=== PATIENT | female | born 1930 | race Caucasian/White ===

== ENCOUNTER 2017-07-17 05:22 | Inpatient (IN) ==
[2017-07-17] MEDS ORDERED: 0.9 % SODIUM CHLORIDE 2,000 ML IV ONE (06:07)
[2017-07-17] MEDS ORDERED: ONDANSETRON 4 MG/2 ML VIAL IV ONE (06:10)
--- NOTE | 2017-07-17 06:13 | Emergency Department Note ---
Nausea/Vomiting/Diarrhea HPI - General Chief complaint: Nausea/Vomiting/Diarrhea Stated complaint: N/V/D Time Seen by Provider: 07/17/17 06:00 Source: patient, EMS Mode of arrival: wheelchair Limitations: altered mental status - History of Present Illness HPI Narrative: 87-year-old female comes in via EMS for nausea vomiting diarrhea. She is not able to give me much in the way of meaningful history or review of systems as she is quite confused and has a history of dementia. Nursing staff reports that she was covered in stool from her breasts down to her feet and she did not even know she had another bowel movement as they were cleaning her up. She has the same questions multiple times and expresses that she does not know why she is here. She is complaining of right hip pain but it is unclear if that is new from a fall or if there is is a more chronic history. Her blood pressure was low so IV fluids were started. - Related Data Home Medications Medication Instructions Recorded Confirmed aspirin 81 mg tablet,delayed 81 mg PO QDAY tab 01/10/15 06/13/17 release Previous Rx's Medication Instructions Recorded True Metrex test strips #100 06/18/16 furosemide 20 mg tablet 20 mg PO QDAY PRN #30 tab 09/18/16 lisinopril 10 mg tablet 5 mg PO QDAY 30 Days #15 tab 09/18/16 ascorbate calcium 500 mg tablet 500 mg PO QDAY #30 tab 03/18/17 cyanocobalamin (vitamin B-12) 2,500 mcg PO QHS #30 tab 03/18/17 2,500 mcg tablet ondansetron 8 mg disintegrating 8 mg PO Q8H PRN #10 tab 06/17/17 tablet doxycycline hyclate 100 mg tablet 100 mg PO BID #14 tab 06/27/17 Verapamil HCl [Verapamil ER] 120 mg PO DAILY #30 cap24h.pel 06/29/17 hydrocodone 10 mg-acetaminophen 1 tab PO Q6H PRN #120 tab 07/05/17 325 mg tablet Allergies Allergy/AdvReac Type Severity Reaction Status Date / Time No Known Drug Allergies Allergy Verified 06/29/17 16:10 Review of Systems Limitations: ROS unobtainable due to patients medical condition Past Medical History - Past Medical History Source: old records reviewed Medical history: Reports: dementia, DM (With neuropathy), hypertension, osteoporosis (With compression fracture), other (Hereditary hemochromatosis) Surgical history ED: Reports: tonsillectomy, other (Right great toe amputation) - Social History smoking status: Former smoker Physical Exam Thin female no acute distress resting. Ill-appearing. Hair is thinning and falling out. Normocephalic atraumatic. Conjunctive are clear sclerae nonicteric. No nasal discharge or congestion. Oropharynx is pink and moist. Heart is regular rate and rhythm no murmur appreciated. Lungs are clear to auscultation bilaterally without wheezes rales rhonchi or respiratory distress. Abdomen is grossly diffusely tender all over. Bilateral lower extremities with +2 pitting edema to the calf. Left worse than right with some mild erythema with that. She is alert but not well oriented except to person and place. She is following commands however Limitations: no limitations Course Vital Signs Temperature 98.6 F 07/17/17 05:23 Temperature 98.6 F 07/17/17 05:23 Disposition Pt seen by SIDEHAND/PA only: No Summary: Workup started with x-rays and laboratory; C. difficile ordered. Treatment started with IV fluids and Zofran. Will be handed off to Dr. Bardales at shift change-6:30 AM today. Disposition: Still a Patient Condition: Fair Referrals: Leonor Bond, KIMBERLY, STRUCTURAL WELDER [Primary Care Provider] -
[2017-07-17 06:51] LABS: Basophils # (Auto) 0 K/mcL (0.0-0.3); Basophils % (Auto) 0 % (0.0-2.0); Eosinophils # (Auto) 0 K/mcL (0.0-0.7); Eosinophils % (Auto) 0 % (0.0-7.0); Granulocytes % (Auto) 91.3 % (38.0-78.0); Lymphocytes # (Auto) 0.3 K/mcL (1.5-4.8); Lymphocytes % (Auto) 1.6 % (15.5-49.0); Mean Cell Volume 96.9 fL (80.0-100.0); Mean Corpuscular HGB Conc 33.9 g/dL (31.0-36.0); Mean Corpuscular Hemoglobin 32.8 pg (26.0-34.0); Monocytes # (Auto) 1.4 K/mcL (0.1-0.9); Monocytes % (Auto) 7.1 % (1.0-12.0); Platelet Count 279 K/mcL (140-440); RBC 3.64 M/mcL (4.00-5.20); Red Cell Distribution Width 13.1 % (11.5-14.5)
--- NOTE | 2017-07-17 07:04 | XRay Report ---
CLINICAL INFORMATION: Right hip pain TECHNIQUE: AP pelvis. AP and lateral right hip COMPARISON: 09/14/2013 FINDINGS: Previous right total hip arthroplasty. No fracture. No interval change. Pelvis is negative. No fracture. No lytic lesion. No detectable sacral fracture. Left hip is negative IMPRESSION: 1. Previous right total hip arthroplasty 2. No acute fracture. Interpreted and Authenticated by: Tha Fernandez 07/17/17
--- NOTE | 2017-07-17 07:05 | XRay Report ---
CLINICAL INFORMATION: Nausea. Vomiting and diarrhea. TECHNIQUE: AP supine and left lateral decubitus abdomen COMPARISON: None FINDINGS: Gas within the colon. No dilated gas-filled small bowel. No mechanical small bowel obstruction. No significant colonic dilatation. Bowel gas pattern is unremarkable. No pneumoperitoneum. No biliary or portal venous gas. No pneumatosis. No focal abnormality. IMPRESSION: Negative abdomen Interpreted and Authenticated by: Tha Fernandez 07/17/17
[2017-07-17 07:16] LABS: ALT/SGPT 11 U/l (0-40); Albumin 3.3 gm/dL (3.2-5.2); Albumin/Globulin Ratio 1.1 (1.0-2.3); Alkaline Phosphatase 212 U/L (39-117); Blood Urea Nitrogen 39 mg/dl (8-23); Lipase 20 U/L (7-60)
[2017-07-17 07:51] LABS: Appearance,Urine CLEAR; Bilirubin,Urine NEG (NEG); Color,Urine AMBER; Glucose,Urine (UA) NEGATIVE (NEG); Leukocyte Esterase,Urine NEG /uL (NEG); Protein,Urine NEG (NEG); Specific Gravity,Urine 1.017 (1.000-1.035); Urine Blood NEG mg/dL (<0.03)
[2017-07-17] MEDS ORDERED: AZITHROMYCIN 500 MG in DEXTROSE 5% IN WATER 250 ML IV ONE (11:18)
--- NOTE | 2017-07-17 11:22 | Emergency Department Note ---
Nausea/Vomiting/Diarrhea HPI - General Chief complaint: Nausea/Vomiting/Diarrhea Stated complaint: N/V/D Time Seen by Provider: 07/17/17 06:00 Source: patient, EMS Mode of arrival: wheelchair Limitations: no limitations - Related Data Home Medications Medication Instructions Recorded Confirmed aspirin 81 mg tablet,delayed 81 mg PO QDAY tab 01/10/15 07/17/17 release Previous Rx's Medication Instructions Recorded True Metrex test strips #100 06/18/16 furosemide 20 mg tablet 20 mg PO QDAY PRN #30 tab 09/18/16 lisinopril 10 mg tablet 5 mg PO QDAY 30 Days #15 tab 09/18/16 ascorbate calcium 500 mg tablet 500 mg PO QDAY #30 tab 03/18/17 cyanocobalamin (vitamin B-12) 2,500 mcg PO QHS #30 tab 03/18/17 2,500 mcg tablet Verapamil HCl [Verapamil ER] 120 mg PO DAILY #30 cap24h.pel 06/29/17 hydrocodone 10 mg-acetaminophen 1 tab PO Q6H PRN #120 tab 07/05/17 325 mg tablet Allergies Allergy/AdvReac Type Severity Reaction Status Date / Time Sulfa (Sulfonamide Allergy Unknown Rash Verified 07/17/17 08:21 Antibiotics) Past Medical History - Past Medical History Medical history: Reports: dementia, DM (With neuropathy), hypertension, osteoporosis (With compression fracture), other (Hereditary hemochromatosis) Surgical history ED: Reports: tonsillectomy, other (Right great toe amputation) - Social History smoking status: Former smoker Physical Exam Limitations: no limitations Course Vital Signs Temperature 98.6 F 07/17/17 05:23 Temperature 98.6 F 07/17/17 14:01 Pulse Rate 80 07/17/17 13:16 Respiratory Rate 14 07/17/17 14:01 Blood Pressure 105/55 07/17/17 14:01 Pulse Oximetry (%) 100 07/17/17 14:01 Nausea/Vomiting/Diarrhea - [facility] Narrative Medical decision making narrative: Her stool sample came back as negative for C. difficile. Pressure has come up from the 96 systolic to 110 systolically. IV fluids. BC was elevated at 19, 600 differential is pending. lactic Acid was 3.3 . Sodium is 127 2 view chest x-ray shows possible left infiltrate and cultures blood cultures have been drawn - Lab Data Result diagrams: 07/17/17 06:15 07/17/17 06:15 Lab Results 07/17/17 07/17/17 07/17/17 Range/Units 06:15 06:15 06:15 WBC 19.6 H (4.5-11.0) K/mcL RBC 3.64 L (4.00-5.20) M/mcL Hgb 12.0 (12.0-15.0) g/dL Hct 35.3 L (36.0-48.0) % MCV 96.9 (80.0-100.0) fL MCH 32.8 (26.0-34.0) pg MCHC 33.9 (31.0-36.0) g/dL RDW 13.1 (11.5-14.5) % Plt Count 279 (140-440) K/mcL MPV 8.0 (7.4-10.4) fL Gran % 91.3 H (38.0-78.0) % Lymph % (Auto) 1.6 L (15.5-49.0) % [place] % (Auto) 7.1 (1.0-12.0) % Eos % (Auto) 0 (0.0-7.0) % Baso % (Auto) 0 (0.0-2.0) % Gran # 17.9 H (1.8-8.0) K/mcL Lymph # (Auto) 0.3 L (1.5-4.8) K/mcL [place] # (Auto) 1.4 H (0.1-0.9) K/mcL Eos # (Auto) 0 (0.0-0.7) K/mcL Baso # (Auto) 0 (0.0-0.3) K/mcL Total Counted 100 Seg Neutrophils % 61 (38-78) % Band Neutrophils % 34 H (0-10) % Monocytes % (Manual) 5 (1-12) % Differential Comment (()) Platelet Estimate Normal (NORMAL) RBC Morphology Normal (NORMAL) ESR (0-20) mm/hr VBG Lactic Acid (0.5-2.2) mmol/L Sodium 127 L (133-145) mmol/L Potassium 5.0 (3.3-5.1) mmol/L Chloride 90 L (96-108) mmol/L Carbon Dioxide 20 L (22-30) mmol/L Anion Gap 17.0 H (8-16) BUN 39 H (8-23) mg/dl Creatinine 1.1 (0.6-1.1) mg/dl GFR Calculation 45 Glucose 205 H (70-105) mg/dL Calcium 8.7 (8.6-10.4) mg/dl Total Bilirubin 1.1 H (0.0-1.0) mg/dL AST 19 (0-37) U/l ALT 11 (0-40) U/l Alkaline Phosphatase 212 H (39-117) U/L C-Reactive Protein (0.0-0.8) mg/dl Total Protein 6.4 (5.9-8.4) gm/dL Albumin 3.3 (3.2-5.2) gm/dL Globulin 3.1 (2.2-3.7) gm/dL Albumin/Globulin Ratio 1.1 (1.0-2.3) Lipase 20 (7-60) U/L Urine Color Urine Appearance Urine pH (5.0-9.0) Ur Specific [place] (1.000-1.035) Urine Protein (NEG) mg/dL Urine Glucose (UA) (NEG) mg/dL Urine Ketones (NEG) mg/dL Urine Occult Blood (<0.03) mg/dL Urine Nitrate (NEG) Urine Bilirubin (NEG) mg/dL Urine Urobilinogen (NEG) mg/dL Ur Leukocyte Esterase (NEG) /uL Ur Culture Indicated? Mycoplasma pneumon IgM (NEGATIVE) Ur Strep pneumoniae Ag (NEGATIVE) 07/17/17 07/17/17 07/17/17 Range/Units 06:15 06:15 06:15 WBC (4.5-11.0) K/mcL RBC (4.00-5.20) M/mcL Hgb (12.0-15.0) g/dL Hct (36.0-48.0) % MCV (80.0-100.0) fL MCH (26.0-34.0) pg MCHC (31.0-36.0) g/dL RDW (11.5-14.5) % Plt Count (140-440) K/mcL MPV (7.4-10.4) fL Gran % (38.0-78.0) % Lymph % (Auto) (15.5-49.0) % [place] % (Auto) (1.0-12.0) % Eos % (Auto) (0.0-7.0) % Baso % (Auto) (0.0-2.0) % Gran # (1.8-8.0) K/mcL Lymph # (Auto) (1.5-4.8) K/mcL [place] # (Auto) (0.1-0.9) K/mcL Eos # (Auto) (0.0-0.7) K/mcL Baso # (Auto) (0.0-0.3) K/mcL Total Counted Seg Neutrophils % (38-78) % Band Neutrophils % (0-10) % Monocytes % (Manual) (1-12) % Differential Comment (()) Platelet Estimate (NORMAL) RBC Morphology (NORMAL) ESR 25 H (0-20) mm/hr VBG Lactic Acid (0.5-2.2) mmol/L Sodium (133-145) mmol/L Potassium (3.3-5.1) mmol/L Chloride (96-108) mmol/L Carbon Dioxide (22-30) mmol/L Anion Gap (8-16) BUN (8-23) mg/dl Creatinine (0.6-1.1) mg/dl GFR Calculation Glucose (70-105) mg/dL Calcium (8.6-10.4) mg/dl Total Bilirubin (0.0-1.0) mg/dL AST (0-37) U/l ALT (0-40) U/l Alkaline Phosphatase (39-117) U/L C-Reactive Protein 8.6 H (0.0-0.8) mg/dl Total Protein (5.9-8.4) gm/dL Albumin (3.2-5.2) gm/dL Globulin (2.2-3.7) gm/dL Albumin/Globulin Ratio (1.0-2.3) Lipase (7-60) U/L Urine Color Urine Appearance Urine pH (5.0-9.0) Ur Specific [place] (1.000-1.035) Urine Protein (NEG) mg/dL Urine Glucose (UA) (NEG) mg/dL Urine Ketones (NEG) mg/dL Urine Occult Blood (<0.03) mg/dL Urine Nitrate (NEG) Urine Bilirubin (NEG) mg/dL Urine Urobilinogen (NEG) mg/dL Ur Leukocyte Esterase (NEG) /uL Ur Culture Indicated? Mycoplasma pneumon IgM Negative (NEGATIVE) Ur Strep pneumoniae Ag (NEGATIVE) 07/17/17 07/17/17 07/17/17 Range/Units 07:10 07:10 07:50 WBC (4.5-11.0) K/mcL RBC (4.00-5.20) M/mcL Hgb (12.0-15.0) g/dL Hct (36.0-48.0) % MCV (80.0-100.0) fL MCH (26.0-34.0) pg MCHC (31.0-36.0) g/dL RDW (11.5-14.5) % Plt Count (140-440) K/mcL MPV (7.4-10.4) fL Gran % (38.0-78.0) % Lymph % (Auto) (15.5-49.0) % [place] % (Auto) (1.0-12.0) % Eos % (Auto) (0.0-7.0) % Baso % (Auto) (0.0-2.0) % Gran # (1.8-8.0) K/mcL Lymph # (Auto) (1.5-4.8) K/mcL [place] # (Auto) (0.1-0.9) K/mcL Eos # (Auto) (0.0-0.7) K/mcL Baso # (Auto) (0.0-0.3) K/mcL Total Counted Seg Neutrophils % (38-78) % Band Neutrophils % (0-10) % Monocytes % (Manual) (1-12) % Differential Comment (()) Platelet Estimate (NORMAL) RBC Morphology (NORMAL) ESR (0-20) mm/hr VBG Lactic Acid 3.3 H (0.5-2.2) mmol/L Sodium (133-145) mmol/L Potassium (3.3-5.1) mmol/L Chloride (96-108) mmol/L Carbon Dioxide (22-30) mmol/L Anion Gap (8-16) BUN (8-23) mg/dl Creatinine (0.6-1.1) mg/dl GFR Calculation Glucose (70-105) mg/dL Calcium (8.6-10.4) mg/dl Total Bilirubin (0.0-1.0) mg/dL AST (0-37) U/l ALT (0-40) U/l Alkaline Phosphatase (39-117) U/L C-Reactive Protein (0.0-0.8) mg/dl Total Protein (5.9-8.4) gm/dL Albumin (3.2-5.2) gm/dL Globulin (2.2-3.7) gm/dL Albumin/Globulin Ratio (1.0-2.3) Lipase (7-60) U/L Urine Color [place] Urine Appearance Clear Urine pH 5.0 (5.0-9.0) Ur Specific [place] 1.017 (1.000-1.035) Urine Protein Neg (NEG) mg/dL Urine Glucose (UA) Negative (NEG) mg/dL Urine Ketones Neg (NEG) mg/dL Urine Occult Blood Neg (<0.03) mg/dL Urine Nitrate Neg (NEG) Urine Bilirubin Neg (NEG) mg/dL Urine Urobilinogen 4.0 A (NEG) mg/dL Ur Leukocyte Esterase Neg (NEG) /uL Ur Culture Indicated? No Mycoplasma pneumon IgM (NEGATIVE) Ur Strep pneumoniae Ag Positive A (NEGATIVE) Disposition Pt seen by RAILWAY TRACTION LINE WORKER/PA only: No Clinical Impression: Pneumonia Disposition: Xfer As Inpt ([facility]) Condition: Fair
[2017-07-17 11:29] LABS: Band Neutrophils % 34 % (0-10); Monocytes % (Manual) 5 % (1-12); Platelet Estimate NORMAL (NORMAL); RBC Morphology NORMAL (NORMAL); Segmented Neutrophils % 61 % (38-78)
--- NOTE | 2017-07-17 11:44 | XRay Report ---
INDICATION: Nausea and vomiting. TECHNIQUE: AP chest x-ray,portable semiupright COMPARISON: Chest x-rays dated 06/29/2017 and 09/14/2013 FINDINGS:Subtle left basilar infiltrate suggestive of pneumonia. Follow-up PA and lateral chest x-ray is recommended. Right lung remains negative. Heart size and pulmonary vascularity are normal. [place] and mediastinum are negative for no pleural fluid. IMPRESSION: 1. Subtle left basilar infiltrate consistent with pneumonia 2. Follow-up radiograph recommended. Interpreted and Authenticated by: Tha Fernandez 07/17/17
--- NOTE | 2017-07-17 13:04 | Cat Scan Report ---
CLINICAL INFORMATION: Nausea and vomiting. Diarrhea COMPARISON: Plain film abdomen 07/17/2017. Abdominal ultrasound 08/05/2014 TECHNIQUE: Axial images were obtained through the abdomen and pelvis. Sagittally and coronally reformatted images. FINDINGS: Somewhat suboptimal abdominal pelvic CT scan. Patient did not receive intravenous or oral contrast material and contrast is limited. There is very little intra-abdominal fat. There is extensive streak artifact related to right hip arthroplasty causing image degradation throughout the pelvis. There is some mild patient motion. Lung bases are negative. No parenchymal infiltrate or mass. There is minimal left pleural fluid. No significant pericardial fluid. Liver is negative to limits of noncontrast enhanced examination. The gallbladder is mildly distended. There are small calcified stones in the dependent portion of the gallbladder. No pericholecystic fluid. Common bile duct is not optimally demonstrated but there is no definite biliary duct dilatation. No splenomegaly. Pancreas appears negative. No pancreatic mass or peripancreatic abnormality. Negative adrenal glands. Kidneys are negative to limits of noncontrast enhanced examination. No hydronephrosis. No definite mass. No calculi. The pelvis is not well-visualized due to extensive streak artifact from right hip arthroplasty. There is a fluid containing structure which is probably a mildly distended bladder. The bladder extends posterolaterally toward the right. No definite uterus is identified. There is no adnexal mass. There is minimal free fluid within the pelvic cul-de-sac. No intra-abdominal abscess. No pneumoperitoneum. No biliary or portal venous gas. No colonic mass. There is sigmoid diverticulosis. No definite diverticulitis. No mechanical small bowel obstruction. There is calcification of the abdominal aorta. There is a compression deformity of the L2 vertebral body. Sacrum is negative. No insufficiency fracture. No pelvic fracture. IMPRESSION: 1. Limited evaluation. Patient did not receive intravenous or oral contrast material 2. Mildly distended gallbladder. Cholelithiasis. 3. Prominent urinary bladder. This is not optimally visualized. No detectable pelvic mass 4. No evidence for diverticulitis. No intra-abdominal abscess. No pneumoperitoneum. The exam was performed using radiation dose optimization techniques including, but not limited to, automated exposure control, adjustment of the mA and/or kV according to patient size and use of iterative reconstruction technique. Interpreted and Authenticated by: Tha Fernandez 07/17/17
[2017-07-17] MEDS ORDERED: ACETAMINOPHEN 1,000 MG/100 ML BOTTLE IV PRN (14:01)
[2017-07-17] MEDS ORDERED: ACETAMINOPHEN 325 MG TABLET PO PRN (14:01)
[2017-07-17] MEDS ORDERED: ONDANSETRON 4 MG/2 ML VIAL IV PRN (14:01)
[2017-07-17] MEDS ORDERED: 0.9 % SODIUM CHLORIDE 1,000 ML IV SCH (14:01)
[2017-07-17] MEDS ORDERED: MAGNESIUM SULFATE 2 GM/50 ML BAG IV PRN (14:01)
[2017-07-17] MEDS: cefTRIAXone 2 GM in DEXTROSE 5% IN WATER 50 ML IV SCH (14:01)
[2017-07-17] MEDS ORDERED: NOREPINEPHRINE BITARTRATE 16 MG in 0.9 % SODIUM CHLORIDE 234 ML IV PRN (14:01)
[2017-07-17] MEDS ORDERED: POTASSIUM CHLORIDE 20 MEQ PACKET PO PRN (14:01)
[2017-07-17] MEDS: LACTATED RINGERS 1,000 ML IV SCH (14:01)
[2017-07-17 14:29] LABS: C-Reactive Protein 8.6 mg/dl (0.0-0.8)
--- NOTE | 2017-07-17 15:10 | History and Physical Report ---
DATE OF ADMISSION: 07/17/2017 REASON FOR ADMISSION: Weakness, diarrhea, fever, shortness of breath, and confusion. HISTORY OF CHIEF COMPLAINT: The patient is an 87-year-old with history of dementia who lives with her daughter and granddaughter, and has been in her baseline state of health until over the last 4-1/2 weeks. The patient has experienced progressive nausea after she had an episode of lower extremity infection and was started on antibiotics. The nausea initially was attributed to antibiotics which were subsequently discontinued, but her symptoms persisted over the last few days. The symptoms have progressed with increasing diarrhea and inability to take anything by mouth, along with progressive weakness and shortness of breath. For the last 24 hours the patient has been increasingly confused, not able to take anything by mouth and with persistent nausea and recurrent diarrhea. She was discovered in a nearly unresponsive state and subsequently brought into [facility] ER where initial workup revealed over 19,000 white count with a creatinine of 1.1 and elevated BUN along with elevated lactate and chest infiltrates on imaging. Subsequently, Hospitalist Service was consulted. At the time of evaluation, patient is more awake and able to answer some of the questions. She appears quite ill. She is fairly confused. Per history from the nursing staff, the patient was smeared in stool on most of the abdomen and all the way to the feet. The patient also endorses to significant joint pain. She has remarkable bruising on the lower extremities along with minimal lymphedema. REVIEW OF SYSTEMS: Ten-point review of system was performed, negative except the ones discussed above. PAST MEDICAL HISTORY: 1. History of dementia. 2. Hypertension. 3. Anxiety disorder. 4. Irregular heart rate. 5. History of parkinsonian features. 6. Diabetes mellitus type 2. 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 FAMILY HISTORY: Significant for type 2 diabetes in paternal grandfather and father. SOCIAL HISTORY: The patient lives with her family, including daughter and granddaughter. She is , retired. No history of alcoholism. She quit smoking a long time ago. CURRENT MEDICATIONS: 1. Lisinopril 5 mg daily. 2. Hydrocodone/acetaminophen 10/325 mg q.6h. p.r.n. 3. Furosemide 20 mg daily. 4. Aspirin 81 mg. PHYSICAL EXAMINATION: GENERAL: The patient is pleasantly confused but answering some of the questions. BMI 25, height 5 feet 11 inches. VITAL SIGNS: Blood pressure 102, improved from 70/45 at the ER, respiration rate 14, temperature 98.6, pulse 99, sats 90% on room air. HEENT: Pupils symmetric. Oral cavity is dry. No ear or nose discharge. No subconjunctival hemorrhage or scleral icterus. NECK: No lymphadenopathy. HEART: S1 and S2. Irregular rhythm. ESM grade 1. CHEST: Diminished breath sounds at bases. No expiratory rhonchi or adventitious sounds. ABDOMEN: Minimally tender around the right lower quadrant but no rebound, no guarding, no fluid. LOWER EXTREMITIES: Significant for multiple areas of ecchymosis. Pedal edema noted, right great toe post-amputation stump. SKIN: Otherwise, no suspicious lesions other than ecchymosis described. PSYCH: No anxiety, but pleasantly confused, lethargic. NEURO: Nonfocal, moving all four extremities. Higher functions could not be performed. LABS AND IMAGING: White count 19.6, hemoglobin 12, platelets 279, neutrophils 61%, bands 34%. Lactic acid 3.3, sodium 127, potassium 5, creatinine 1.1, BUN 39. CRP 8.6. UA unremarkable, serology negative. X-ray hip: No acute fracture. X-ray abdomen: Negative. CT abdomen: Distended gallbladder with cholelithiasis. X-ray chest: Left basilar infiltrate consistent with pneumonia. ASSESSMENT AND PLAN: An 87-year-old admitted with severe sepsis with pneumonia and diarrhea. 1. Severe sepsis by criteria secondary to pneumonia. Continue antibiotic coverage. Continue management per guidelines. Monitor for end organ dysfunction, trend lactate, initiate Rocephin and azithromycin for community-acquired pathogens. 2. Community-acquired pneumonia, bibasilar. Start antibiotic coverage along with pulmonary toilet. 3. Mild acute kidney injury secondary to volume depletion. Continue crystalloids. 4. Diarrhea, clostridium difficile negative. Await stool studies including stool cultures along with stool leukocytes; acute in nature, likely infectious. 6. Other prior medical issues, including: a. History of diabetes mellitus type 2. Continue sliding scale insulin. b. Hypertension. Hold antihypertensives in light of acute renal failure and volume depletion. CODE STATUS: FULL CODE. PLAN FOR TODAY: 1. Admit as inpatient. 2. Sepsis management per guidelines. 3. Crystalloids and vasopressors if indicated. 4. Admit to ICU. 5. Monitor renal function. 6. Stool studies. 7. Community-acquired pneumonia protocol. Time spent on history and physical over 65 minutes. The patient will be transferred to ICU. AA:melva Job ID: [id number] Doc ID: [id number] Axel Flores MD
[2017-07-17] MEDS: 0.9 % SODIUM CHLORIDE 10 ML SYRINGE IV SCH ×2 (16:11→21:56)
[2017-07-17] MEDS ORDERED: DEXTROSE 50% 50 ML VIAL IV PRN (17:30)
[2017-07-17] MEDS ORDERED: DEXTROSE 31 GM ORAL.SUSP PO PRN (17:30)
[2017-07-17] MEDS: HEPARIN 5,000 UNIT/ML VIAL SQ SCH (21:27)
[2017-07-17] MEDS: INSULIN LISPRO 1 UNIT/0.01 ML UNIT SQ SCH (21:27)
[2017-07-18] MEDS: LACTATED RINGERS 1,000 ML IV SCH ×4 (02:18→15:08)
[2017-07-18 04:53] LABS: Mean Cell Volume 97.3 fL (80.0-100.0); Mean Corpuscular HGB Conc 33.8 g/dL (31.0-36.0); Mean Corpuscular Hemoglobin 32.9 pg (26.0-34.0); Platelet Count 198 K/mcL (140-440); RBC 2.95 M/mcL (4.00-5.20); Red Cell Distribution Width 13.4 % (11.5-14.5)
[2017-07-18 05:08] LABS: ALT/SGPT 8 U/l (0-40); Albumin/Globulin Ratio 1.3 (1.0-2.3); Alkaline Phosphatase 147 U/L (39-117); Bilirubin,Direct < 0.2 mg/dL (0.0-0.3); Blood Urea Nitrogen 23 mg/dl (8-23); Gamma Glutamyl Transpeptidase 8 U/L (5-36); Uric Acid 4.7 mg/dL (2.5-8.0)
[2017-07-18] MEDS: 0.9 % SODIUM CHLORIDE 10 ML SYRINGE IV SCH ×3 (05:28→22:31)
[2017-07-18 07:56] LABS: Band Neutrophils % 9 % (0-10); Eosinophils % (Manual) 1 % (0-7); Lymphocytes % 7 % (15-49); Monocytes % (Manual) 13 % (1-12); Platelet Estimate NORMAL (NORMAL); RBC Morphology NORMAL (NORMAL); Segmented Neutrophils % 70 % (38-78)
[2017-07-18] MEDS: INSULIN LISPRO 1 UNIT/0.01 ML UNIT SQ SCH ×4 (08:06→22:31)
[2017-07-18] MEDS ORDERED: AZITHROMYCIN 500 MG in DEXTROSE 5% IN WATER 250 ML IV SCH (09:00)
[2017-07-18] MEDS: HEPARIN 5,000 UNIT/ML VIAL SQ SCH ×2 (09:25→23:48)
[2017-07-18] MEDS: cefTRIAXone 2 GM in DEXTROSE 5% IN WATER 50 ML IV SCH (09:25)
--- NOTE | 2017-07-18 10:05 | Internal Med Progress Note ---
Medical - PN: Subj Patient information: Note initiated : 07/18/17 at 10:01 am Service Date, if different from initiated Date: [] Patient: Nayely Zhao 87 y/o F admitted on 07/17/17 for N/V/D. Chief Complaint: [] Interval history: The patient is an 87-year-old with history of dementia who lives with her daughter and granddaughter, and has been in her baseline state of health until over the last 4-1/2 weeks. The patient has experienced progressive nausea after she had an episode of lower extremity infection and was started on antibiotics. The nausea initially was attributed to antibiotics which were subsequently discontinued, but her symptoms persisted over the last few days. The symptoms have progressed with increasing diarrhea and inability to take anything by mouth, along with progressive weakness and shortness of breath. For the last 24 hours the patient has been increasingly confused, not able to take anything by mouth and with persistent nausea and recurrent diarrhea. She was discovered in a nearly unresponsive state and subsequently brought into [facility] ER where initial workup revealed over 19,000 white count with a creatinine of 1.1 and elevated BUN along with elevated lactate and chest infiltrates on imaging. Subsequently, Hospitalist Service was consulted. At the time of evaluation, patient is more awake and able to answer some of the questions. She appears quite ill. She is fairly confused. Per history from the nursing staff, the patient was smeared in stool on most of the abdomen and all the way to the feet. The patient also endorses to significant joint pain. She has remarkable bruising on the lower extremities along with minimal lymphedema. July 18-patient doing remarkably better. Alert and lucid. Hemodynamics stable. Good urine output. No further diarrhea except for one episode of loose stools this morning. No concerns per nursing staff. Patient pleasantly confused. Tangential conversation. No overnight events. White count down from19,000-10,000. Creatinine down from 1.1- 0.7. urine strep pneumo antigen positive.systolics around 140s. Transfer to medical floor. Continue physical therapy. Anticipate SNF transfer in 24-48 hours. No family at bedside.stool studies pending except for C. difficile negative - Constitutional Vitals: Vital Signs Temp Pulse Resp BP Pulse Ox 98.0 F 74 16 133/94 98 07/18/17 08:01 07/18/17 08:01 07/18/17 09:01 07/18/17 09:01 07/18/17 09:01 Period Temp Pulse Resp BP Sys/Benedict Pulse Ox Last 24 Hr 97.9 F-98.7 F 70-82 10-49 99-148/43-94 94-100 Intake and Output 07/17/17 07/18/17 07/18/17 21:59 05:59 13:59 Intake Total 1112 / 1112 1250 / 1250 525 / 525 Output Total 300 / 300 200 / 200 Balance 1112 / 1112 950 / 950 325 / 325 Weight 177 lb Intake & Output: Intake & Output 07/17/17 07/18/17 07/18/17 21:59 05:59 13:59 Intake Total 1112 / 1112 1250 / 1250 525 / 525 Output Total 300 / 300 200 / 200 Balance 1112 / 1112 950 / 950 325 / 325 Weight 177 lb Intake: IV 1112 / 1112 1000 / 1000 Sodium Chloride 0.9% 1,000 ml @ 1000 / 1000 Wide Open IV BOLUS CARLOTA Rx#: [id number] Lactated Ringers 1,000 ml @ 100 1000 / 1000 mls/hr IV .Q10H CARLOTA Rx#: [id number] Rocephin 2 gm In Dextrose 5% in 50 / 50 Water 50 ml @ 100 mls/hr IV DAILY CARLOTA Rx#:[id number] Oral 250 / 250 525 / 525 Output: Urine/Stool Mix 200 / 200 Stool 300 / 300 Other: Meal Breakfast Percent of Meal Consumed 100% Feeding Ability Independent Stool Size Small Small Stool Color Brown Brown Brown Blood Tinged Stool Consistency Liquid Watery Loose Loose Loose # Voids 2 # Bowel Movements 1 2 # of times incontinent of 1 1 Bowels General appearance: cooperative, no acute distress Exam: alert oriented nonlabored breathing No telemetry events No anxiety Medical - PN: Obj Da - Labs CBC & Chem 7: 07/18/17 03:50 07/18/17 03:50 Labs: Abnormal Lab Results 07/18/17 07/18/17 07/17/17 03:50 03:50 07:50 WBC RBC 2.95 L Hgb 9.7 L Hct 28.7 L Gran % Lymph % (Auto) Gran # Lymph # (Auto) Emery # (Auto) Band Neutrophils % Lymphocytes % 7 L Monocytes % (Manual) 13 H ESR VBG Lactic Acid 3.3 H Sodium 131 L Chloride Carbon Dioxide 21 L Anion Gap BUN Glucose Calcium 7.8 L Phosphorus 2.4 L Total Bilirubin Alkaline Phosphatase 147 H C-Reactive Protein Total Protein 5.3 L Albumin 3.0 L Urine Urobilinogen Ur Strep pneumoniae Ag 07/17/17 07/17/17 07/17/17 07:10 07:10 06:15 WBC RBC Hgb Hct Gran % Lymph % (Auto) Gran # Lymph # (Auto) Emery # (Auto) Band Neutrophils % Lymphocytes % Monocytes % (Manual) ESR VBG Lactic Acid Sodium Chloride Carbon Dioxide Anion Gap BUN Glucose Calcium Phosphorus Total Bilirubin Alkaline Phosphatase C-Reactive Protein 8.6 H Total Protein Albumin Urine Urobilinogen 4.0 A Ur Strep pneumoniae Ag Positive A 07/17/17 07/17/17 07/17/17 06:15 06:15 06:15 WBC RBC Hgb Hct Gran % Lymph % (Auto) Gran # Lymph # (Auto) Emery # (Auto) Band Neutrophils % 34 H Lymphocytes % Monocytes % (Manual) ESR 25 H VBG Lactic Acid Sodium 127 L Chloride 90 L Carbon Dioxide 20 L Anion Gap 17.0 H BUN 39 H Glucose 205 H Calcium Phosphorus Total Bilirubin 1.1 H Alkaline Phosphatase 212 H C-Reactive Protein Total Protein Albumin Urine Urobilinogen Ur Strep pneumoniae Ag 07/17/17 06:15 WBC 19.6 H RBC 3.64 L Hgb Hct 35.3 L Gran % 91.3 H Lymph % (Auto) 1.6 L Gran # 17.9 H Lymph # (Auto) 0.3 L Emery # (Auto) 1.4 H Band Neutrophils % Lymphocytes % Monocytes % (Manual) ESR VBG Lactic Acid Sodium Chloride Carbon Dioxide Anion Gap BUN Glucose Calcium Phosphorus Total Bilirubin Alkaline Phosphatase C-Reactive Protein Total Protein Albumin Urine Urobilinogen Ur Strep pneumoniae Ag Meds: Medications Acetaminophen (Tylenol) 650 mg PO Q4-6HP PRN PRN Reason: PAIN/FEVER > 101 Dextrose (Dextrose 50%) 0 ml IV UD PRN PRN Reason: Hypoglycemia Diagnostic Test (Pha) (Accu-Chek) 1 each FS ACHS [facility] Last Admin: 07/18/17 08:06 Dose: 1 each Glucose (Insta-Glucose) 15 gm PO PRN PRN PRN Reason: Hypoglycemia Heparin Sodium (Porcine) (Heparin) 5,000 unit SQ Q12 [facility] Last Admin: 07/18/17 09:25 Dose: 5,000 unit Azithromycin 500 mg/ Dextrose 250 mls @ 250 mls/hr IV DAILY [facility] Stop: 07/19/17 09:59 Last Admin: 07/18/17 09:26 Dose: 250 mls/hr Ceftriaxone Sodium 2 gm/ (Dextrose) 50 mls @ 100 mls/hr IV DAILY [facility] Last Admin: 07/18/17 09:25 Dose: 100 mls/hr Lactated Ringer's (Lactated Ringers) 1,000 mls @ 100 mls/hr IV .Q10H [facility] Stop: 07/18/17 20:00 Last Admin: 07/18/17 02:18 Dose: 100 mls/hr Magnesium Sulfate (Magnesium Sulfate) 2 gm in 50 mls @ 50 mls/hr IV UD PRN PRN Reason: MG = or < 1.7 Norepinephrine Bitartrate 16 (mg/ Sodium Chloride) 250 mls @ 9.37 mls/hr IV Q24HP PRN; Protocol; 10 MCG/MIN PRN Reason: TITRATE TO KEEP MAP > 65 Sodium Chloride (Sodium Chloride 0.9%) 1,000 mls @ 0 mls/hr IV BOLUS CARLOTA PRN Reason: Wide Open Last Infusion: 07/17/17 15:30 Dose: Infused Acetaminophen (Ofirmev) 1,000 mg in 100 mls @ 200 mls/hr IV Q6HP PRN PRN Reason: PAIN/FEVER > 101 Insulin Human Lispro (Humalog) 0 unit SQ ACHS [facility] PRN Reason: Protocol Last Admin: 07/18/17 08:06 Dose: Not Given Ondansetron HCl (Zofran) 4 mg IV Q4-6HP PRN PRN Reason: Nausea And Vomiting Potassium Chloride (Klor-Con) 40 meq PO DAILYP PRN PRN Reason: K+ < 3.5 Sodium Chloride (Saline Flush) 10 ml IV Q8 [facility] Last Admin: 07/18/17 05:28 Dose: 10 ml Medical - PN: A/P - Time Spent With Patient Total time spent is greater than 50% in coordination of care (as documented) at patient's floor/unit and/or counseling patient: 15 - 24 minutes - Narrative A/P Narrative: assessment- 87-year-old with severe sepsis pneumonia diarrhea * community acquired pneumonia-continue antibiotic coverage per protocol * Severe sepsis with multiple organ dysfunction- clinically improving with management per guidelines * JARED clinically resolved * Diarrhea-C. difficile negative. Stool studies pending * Change in mental status now back to baseline. Sepsis end organ dysfunction * DM type II on sliding scale insulin * Hypertension- systolic around 140. Restart home meds including ANGELY inhibitor/ verapamil * prophylaxis heparin * Plan * antibiotic coverage * sepsis management per guidelines * restart home medications for medical issues Medical - PN: Qual - VTE Deep Vein Thrombosis/Pulmonary Embolism Present on Admission: No
[2017-07-18] MEDS ORDERED: ACETAMINOPHEN 325 MG TABLET PO PRN (11:26)
[2017-07-18] MEDS ORDERED: ONDANSETRON 4 MG/2 ML VIAL IV PRN (11:26)
[2017-07-18] MEDS ORDERED: MAGNESIUM SULFATE 2 GM/50 ML BAG IV PRN (11:26)
[2017-07-18] MEDS ORDERED: DEXTROSE 31 GM ORAL.SUSP PO PRN (11:26)
[2017-07-18] MEDS ORDERED: DEXTROSE 50% 50 ML VIAL IV PRN (11:26)
[2017-07-18] MEDS ORDERED: POTASSIUM CHLORIDE 20 MEQ PACKET PO PRN (11:26)
[2017-07-18] MEDS ORDERED: ACETAMINOPHEN 1,000 MG/100 ML BOTTLE IV PRN (11:26)
[2017-07-19 05:25] LABS: Mean Cell Volume 96.6 fL (80.0-100.0); Mean Corpuscular HGB Conc 34.1 g/dL (31.0-36.0); Platelet Count 184 K/mcL (140-440); RBC 2.82 M/mcL (4.00-5.20); Red Cell Distribution Width 13.1 % (11.5-14.5)
[2017-07-19 05:26] LABS: Appearance,Urine CLEAR; Bacteria,Urine FEW /hpf (0); Bilirubin,Urine NEG (NEG); Color,Urine YELLOW; Glucose,Urine (UA) NEGATIVE (NEG); Leukocyte Esterase,Urine 25 /uL (NEG); Protein,Urine NEG (NEG); Specific Gravity,Urine 1.009 (1.000-1.035); Urine Blood 0.03 mg/dL (<0.03); Urine RBC 1 /hpf (0-1); Urine Squamous Epithelial Cell < 1 /hpf (0-4); Urine WBC 21 /hpf (0-4); Urobilinogen,Urine NEG (NEG)
[2017-07-19 05:41] LABS: ALT/SGPT 7 U/l (0-40); Albumin 2.4 gm/dL (3.2-5.2); Alkaline Phosphatase 123 U/L (39-117); Bilirubin,Direct < 0.2 mg/dL (0.0-0.3); Blood Urea Nitrogen 12 mg/dl (8-23); Gamma Glutamyl Transpeptidase 7 U/L (5-36); Uric Acid 4.6 mg/dL (2.5-8.0)
[2017-07-19] MEDS: 0.9 % SODIUM CHLORIDE 10 ML SYRINGE IV SCH ×4 (06:07→21:19)
[2017-07-19 06:08] LABS: Lymphocytes % 14 % (15-49); Monocytes % (Manual) 7 % (1-12); Platelet Estimate NORMAL (NORMAL); RBC Morphology NORMAL (NORMAL); Segmented Neutrophils % 79 % (38-78)
--- NOTE | 2017-07-19 06:37 | XRay Report ---
INDICATION: Pneumonia TECHNIQUE: AP chest x-ray,portable semiupright COMPARISON: 07/17/2017, 06/29/2017 FINDINGS:Mild left basilar infiltrate is slightly worsened on previous examination. Continued follow-up radiographs recommended. Heart size and vascularity are normal. IMPRESSION: Slight interval worsening of left basilar infiltrate Interpreted and Authenticated by: Tha Fernandez 07/19/17
[2017-07-19] MEDS: INSULIN LISPRO 1 UNIT/0.01 ML UNIT SQ SCH ×4 (07:25→21:18)
[2017-07-19] MEDS ORDERED: AZITHROMYCIN 500 MG in DEXTROSE 5% IN WATER 250 ML IV SCH (09:00)
--- NOTE | 2017-07-19 09:11 | Discharge Summary ---
Medical - DS: Prov Patient information: Note initiated : 07/19/17 at 9:09 am Service Date, if different from initiated Date: [] Patient: Nayely Zhao 87 y/o F admitted on 07/17/17 for N/V/D / Severe Sepsis with Pneumonia and Diarrhea. Chief Complaint: [] Date of admission: 07/17/17 13:41 Discharge date: 07/19/17 Primary care physician: Leonor Bond Consults: 07/17/17 11:49 Consult to Physician [CONS] Stat Comment: Consulting Provider: Axel Flores Reason For Exam: Physician to Consult Medical - DS: Meds - Discharge Medications Prescriptions: Azithromycin [Zithromax] 250 mg PO DAILY #4 tab Cefdinir 300 mg PO BID #10 cap Active and Home Medications: Home Medications aspirin 81 mg tablet,delayed release 81 mg PO QDAY tab 01/10/15 [History Confirmed 07/18/17 Last Taken 07/16/17] furosemide 20 mg tablet 20 mg PO QDAY PRN #30 tab 09/18/16 [Rx Confirmed Last Taken 07/16/17] lisinopril 10 mg tablet 5 mg PO QDAY 30 Days #15 tab 09/18/16 [Rx Confirmed Last Taken 07/16/17] ascorbate calcium 500 mg tablet 500 mg PO QDAY #30 tab 03/18/17 [Rx Confirmed Last Taken 07/16/17] cyanocobalamin (vitamin B-12) 2,500 mcg tablet 2,500 mcg PO QHS #30 tab [Rx Confirmed 07/18/17 Last Taken 07/16/17] Verapamil HCl [Verapamil ER] 120 mg PO DAILY #30 cap24h.pel 06/29/17 [Rx Confirmed 07/18/17 Last Taken 07/16/17] hydrocodone 10 mg-acetaminophen 325 mg tablet 1 tab PO Q6H PRN #120 tab [Rx Confirmed 07/18/17 Last Taken 07/16/17] Azithromycin [Zithromax] 250 mg PO DAILY #4 tab 07/19/17 [Rx Last Taken Unknown] Cefdinir 300 mg PO BID #10 cap 07/19/17 [Rx Last Taken Unknown] Medical - DS: Hosp Hospital course: Discharge diagnosis * community acquired pneumonia-clinically improving on antibiotic coverage. Continue additional 5 days antibiotics * Severe sepsis with multiple organ dysfunction- clinically resolved * GPC bacteremi surveillance cultures pending. Continue antibiotic coverage. * JARED clinically resolved * Diarrhea-C. difficile negative. stool studies negative * Change in mental status now back to baseline. Sepsis end organ dysfunction * DM type II on sliding scale insulin * Hypertension- systolic around 140. Restart home meds including ANGELY inhibitor/ verapamil BRIEF HOSPITAL COURSE The patient is an 87-year-old with history of dementia who lives with her daughter and granddaughter, and has been in her baseline state of health until over the last 4-1/2 weeks. The patient has experienced progressive nausea after she had an episode of lower extremity infection and was started on antibiotics. The nausea initially was attributed to antibiotics which were subsequently discontinued, but her symptoms persisted over the last few days. The symptoms have progressed with increasing diarrhea and inability to take anything by mouth, along with progressive weakness and shortness of breath. For the last 24 hours the patient has been increasingly confused, not able to take anything by mouth and with persistent nausea and recurrent diarrhea. She was discovered in a nearly unresponsive state and subsequently brought into [facility] ER where initial workup revealed over 19,000 white count with a creatinine of 1.1 and elevated BUN along with elevated lactate and chest infiltrates on imaging. Subsequently, Hospitalist Service was consulted. At the time of evaluation, patient is more awake and able to answer some of the questions. She appears quite ill. She is fairly confused. Per history from the nursing staff, the patient was smeared in stool on most of the abdomen and all the way to the feet. The patient also endorses to significant joint pain. She has remarkable bruising on the lower extremities along with minimal lymphedema. July 18-patient doing remarkably better. Alert and lucid. Hemodynamics stable. Good urine output. No further diarrhea except for one episode of loose stools this morning. No concerns per nursing staff. Patient pleasantly confused. Tangential conversation. No overnight events. White count down from19,000-10,000. Creatinine down from 1.1- 0.7. urine strep pneumo antigen positive.systolics around 140s. Transfer to medical floor. Continue physical therapy. Anticipate SNF transfer in 24-48 hours. No family at bedside.stool studies pending except for C. difficile negative July 19-patient doing a lot better. Tolerating physical therapy. He is at baseline. No further diarrhea. Leukocytosis resolved. On room air. Strep pneumo antigen positive. Continue additional 5 days to generation cephalosporin. Discharge home with home health physical therapy. Detailed instructions and medications as below. GPC positive. Repeat surveillance cultures hold discharge 24 hour Discharge diagnosis: . - Time Spent with Patient Total time spent providing and/or coordinating discharge services: Greater than 30 minutes Medical - DS: Exam - Constitutional Vitals: Vital Signs Temp Pulse Resp BP Pulse Ox 07/19/17 06:55 99 F 18 116/69 98 07/19/17 04:00 98.2 F 84 16 114/74 95 07/18/17 23:49 98.0 F 86 16 119/71 96 07/18/17 20:28 97.8 F 76 18 140/66 98 07/18/17 18:03 98.3 F 73 16 155/77 99 07/18/17 14:00 70 07/18/17 12:04 70 07/18/17 12:00 96.8 F L 16 144/77 100 Intake and Output 07/18/17 07/19/17 07/19/17 21:59 05:59 13:59 Intake Total 1000 / 1000 1250 / 1250 Output Total 200 / 200 800 / 800 450 / 450 Balance 800 / 800 450 / 450 -450 / -450 Intake: IV 1000 / 1000 1000 / 1000 Lactated Ringers 1,000 ml @ 100 1000 / 1000 1000 / 1000 mls/hr IV .Q10H [facility] Rx#: [id number] Oral 250 / 250 Output: Void Amount 200 / 200 800 / 800 450 / 450 Other: Stool Size Moderate Stool Color Brown Stool Consistency Watery # of times incontinent of 4 1 Bowels Weight 178 lb Medical - DS: Data Labs on day of discharge: Labs from last 24 hours 07/19/17 07/19/17 07/19/17 05:00 04:15 04:15 WBC 6.7 RBC 2.82 L Hgb 9.3 L Hct 27.2 L MCV 96.6 MCH 33.0 MCHC 34.1 RDW 13.1 Plt Count 184 MPV 7.9 Total Counted 100 Seg Neutrophils % 79 H Band Neutrophils % Not Reportable Lymphocytes % 14 L Monocytes % (Manual) 7 Platelet Estimate Normal RBC Morphology Normal Sodium 130 L Potassium 3.5 Chloride 98 Carbon Dioxide 20 L Anion Gap 12.0 BUN 12 Creatinine 0.6 GFR Calculation 83 Glucose 80 Uric Acid 4.6 Calcium 7.5 L Phosphorus 2.3 L Magnesium 1.7 Total Bilirubin 0.2 Direct Bilirubin < 0.2 GGT 7 AST 14 ALT 7 Alkaline Phosphatase 123 H Lactate Dehydrogenase 157 Total Protein 4.9 L Albumin 2.4 L Globulin 2.5 Albumin/Globulin Ratio 1.0 Triglycerides 91 Urine Color Yellow Urine Appearance Clear Urine pH 6.0 Ur Specific Vicco 1.009 Urine Protein Neg Urine Glucose (UA) Negative Urine Ketones Neg Urine Occult Blood 0.03 A Urine Nitrate Neg Urine Bilirubin Neg Urine Urobilinogen Neg Ur Leukocyte Esterase 25 A Urine RBC 1 Urine WBC 21 H Ur Squamous Epith Cells < 1 Urine Bacteria Few A Ur Culture Indicated? Yes Stool Norovirus Ag 07/18/17 14:41 WBC RBC Hgb Hct MCV MCH MCHC RDW Plt Count MPV Total Counted Seg Neutrophils % Band Neutrophils % Lymphocytes % Monocytes % (Manual) Platelet Estimate RBC Morphology Sodium Potassium Chloride Carbon Dioxide Anion Gap BUN Creatinine GFR Calculation Glucose Uric Acid Calcium Phosphorus Magnesium Total Bilirubin Direct Bilirubin GGT AST ALT Alkaline Phosphatase Lactate Dehydrogenase Total Protein Albumin Globulin Albumin/Globulin Ratio Triglycerides Urine Color Urine Appearance Urine pH Ur Specific Vicco Urine Protein Urine Glucose (UA) Urine Ketones Urine Occult Blood Urine Nitrate Urine Bilirubin Urine Urobilinogen Ur Leukocyte Esterase Urine RBC Urine WBC Ur Squamous Epith Cells Urine Bacteria Ur Culture Indicated? Stool Norovirus Ag Pending Preliminary micro results at discharge 07/17/17 14:41 Stool Culture - Preliminary Stool 07/17/17 11:43 Blood Culture - Preliminary Blood Gram positive cocci 07/17/17 11:58 Blood Culture - Preliminary Blood Medical - DS: A/P - Patient/Caregiver Discharge Instructions Activity: as per physical therapy, increase activity as tolerated Diet: Regular Diet Additional Instructions: Follow-up PCP in 5 days I recommend [facility] physician to check CBC BMP UA as a posthospital follow-up and Chest x-ray in 1 week. Antibiotics for 5 days Continue aggressive bowel regimen to prevent constipation Continue fall precautions Continue aggressive PT OT evaluation and treatment at [facility]. ST eval and treatment if indicated All meals on chair sitting upright at 90 degrees to prevent aspiration Return to ER if worsening fever chills shortness of breath, diarrhea, bleeding Review risk and side effect profile of medications including antibiotics. Side effect may include mild to severe reaction including rash, diarrhea, cdiff and even which can be prevented by close follow-up with PCP and monitoring for side effects Continue diet and activity as advised Discussed importance of medication adherence Please review medication list with patient prior to discharge Please schedule follow-up with PCP/Providers prior to discharge and provide printouts Portions of this chart may have been created with [employer] voice recognition software. Occasional wrong-word or ?sound-like? substitutions may have occurred due to the inherent limitations of voice recognition software. Please read the chart carefully and recognize, using context, where the substitutions have occurred. CC- PCP Prescriptions: Azithromycin [Zithromax] 250 mg PO DAILY #4 tab Cefdinir 300 mg PO BID #10 cap - Follow up Plan Follow up with: Leonor Bond, [facility], [employer] [Primary Care Provider] - Disposition: Home Health Service Prognosis: Fair Rehab Potential: Good I certify that the patient requires SNF services: No Overall status at discharge: patient is progressing back to baseline Medical - DS: Qual - VTE Deep Vein Thrombosis/Pulmonary Embolism Present on Admission: No
[2017-07-19] MEDS: HEPARIN 5,000 UNIT/ML VIAL SQ SCH ×2 (10:01→21:17)
[2017-07-19] MEDS: ASPIRIN 81 MG TAB.CHEW PO SCH (10:01)
[2017-07-19] MEDS: cefTRIAXone 2 GM in DEXTROSE 5% IN WATER 50 ML IV SCH (10:01)
[2017-07-19] MEDS: VERAPAMIL 120 MG TAB.XL.24H PO SCH (10:01)
[2017-07-19] MEDS: LISINOPRIL 10 MG TABLET PO SCH (10:01)
[2017-07-19] MEDS: FUROSEMIDE 20 MG TABLET PO PRN (11:43)
[2017-07-19] MEDS: HYDROcodone/APAP 10/325MG TABLET PO PRN ×2 (16:00→22:13)
--- NOTE | 2017-07-19 16:52 | XRay Report ---
CLINICAL INFORMATION: Fall. Pelvic pain. TECHNIQUE: AP pelvis COMPARISON: 07/17/2017 FINDINGS: Previous right total hip arthroplasty. The distal portion of the femoral stem is not imaged. No pelvic fracture. No lytic lesion. Left hip is negative. No detectable sacral fracture. IMPRESSION: 1. No acute pelvic fracture 2. Right total hip arthroplasty. Right femoral stem is not imaged in its entirety Interpreted and Authenticated by: Tha Fernandez 07/19/17
[2017-07-20] MEDS: 0.9 % SODIUM CHLORIDE 10 ML SYRINGE IV SCH ×3 (04:58→21:23)
[2017-07-20 06:05] LABS: Mean Cell Volume 95.5 fL (80.0-100.0); Mean Corpuscular HGB Conc 34.9 g/dL (31.0-36.0); Mean Corpuscular Hemoglobin 33.3 pg (26.0-34.0); Platelet Count 201 K/mcL (140-440); Red Cell Distribution Width 12.9 % (11.5-14.5)
[2017-07-20 06:39] LABS: ALT/SGPT 9 U/l (0-40); Albumin 2.7 gm/dL (3.2-5.2); Alkaline Phosphatase 125 U/L (39-117); Bilirubin,Direct < 0.2 mg/dL (0.0-0.3); Blood Urea Nitrogen 11 mg/dl (8-23); Gamma Glutamyl Transpeptidase 9 U/L (5-36); Uric Acid 5.1 mg/dL (2.5-8.0)
[2017-07-20 06:43] LABS: Band Neutrophils % 2 % (0-10); Basophils % (Manual) 2 % (0-2); Eosinophils % (Manual) 3 % (0-7); Lymphocytes % 16 % (15-49); Monocytes % (Manual) 11 % (1-12); Platelet Estimate NORMAL (NORMAL); RBC Morphology NORMAL (NORMAL); Segmented Neutrophils % 65 % (38-78)
[2017-07-20] MEDS ORDERED: POTASSIUM CHLORIDE 20 MEQ PACKET PO ONE (08:53)
[2017-07-20] MEDS ORDERED: MAGNESIUM SULFATE 2 GM/50 ML BAG IV ONE (08:53)
[2017-07-20] MEDS: ASPIRIN 81 MG TAB.CHEW PO SCH (09:05)
[2017-07-20] MEDS: LISINOPRIL 10 MG TABLET PO SCH (09:05)
[2017-07-20] MEDS: INSULIN LISPRO 1 UNIT/0.01 ML UNIT SQ SCH ×4 (09:05→21:23)
[2017-07-20] MEDS: FUROSEMIDE 20 MG TABLET PO PRN (09:06)
[2017-07-20] MEDS: VERAPAMIL 120 MG TAB.XL.24H PO SCH (09:06)
[2017-07-20] MEDS: cefTRIAXone 2 GM in DEXTROSE 5% IN WATER 50 ML IV SCH (09:09)
[2017-07-20] MEDS: HEPARIN 5,000 UNIT/ML VIAL SQ SCH ×2 (09:10→21:22)
[2017-07-20] MEDS: HYDROcodone/APAP 10/325MG TABLET PO PRN ×2 (11:10→21:22)
[2017-07-20] MEDS: ERTAPENEM 1 GM in 0.9 % SODIUM CHLORIDE 50 ML IV SCH (13:08)
--- NOTE | 2017-07-20 15:48 | Internal Med Progress Note ---
Medical - PN: Subj Patient information: Note initiated : 07/20/17 at 3:46 pm Service Date, if different from initiated Date: [] Patient: Nayely Zhao 87 y/o F admitted on 07/17/17 for N/V/D / Severe Sepsis with Pneumonia and Diarrhea. Chief Complaint: [] Interval history: The patient is an 87-year-old with history of dementia who lives with her daughter and granddaughter, and has been in her baseline state of health until over the last 4-1/2 weeks. The patient has experienced progressive nausea after she had an episode of lower extremity infection and was started on antibiotics. The nausea initially was attributed to antibiotics which were subsequently discontinued, but her symptoms persisted over the last few days. The symptoms have progressed with increasing diarrhea and inability to take anything by mouth, along with progressive weakness and shortness of breath. For the last 24 hours the patient has been increasingly confused, not able to take anything by mouth and with persistent nausea and recurrent diarrhea. She was discovered in a nearly unresponsive state and subsequently brought into [facility] ER where initial workup revealed over 19,000 white count with a creatinine of 1.1 and elevated BUN along with elevated lactate and chest infiltrates on imaging. Subsequently, Hospitalist Service was consulted. At the time of evaluation, patient is more awake and able to answer some of the questions. She appears quite ill. She is fairly confused. Per history from the nursing staff, the patient was smeared in stool on most of the abdomen and all the way to the feet. The patient also endorses to significant joint pain. She has remarkable bruising on the lower extremities along with minimal lymphedema. July 18-patient doing remarkably better. Alert and lucid. Hemodynamics stable. Good urine output. No further diarrhea except for one episode of loose stools this morning. No concerns per nursing staff. Patient pleasantly confused. Tangential conversation. No overnight events. White count down from19,000-10,000. Creatinine down from 1.1- 0.7. urine strep pneumo antigen positive.systolics around 140s. Transfer to medical floor. Continue physical therapy. Anticipate SNF transfer in 24-48 hours. No family at bedside.stool studies pending except for C. difficile negative july 20 The patient was deemed stable for discharge yesterday discharge paperwork was nearly done however patient's blood culture report came back +1 bottle positive for gram-positive cocci patient's discharge was therefore held. Repeat set of blood cultures were ordered which are negative growth so far. On discussing with the microbiology lab the patient's positive blood culture is in an anaerobic bottle, patient will stay in the hospital till the microbe is identified. Anaerobes are unlikely to be contaminants. Antibiotic changed, patient started on ertapenem. I reviewed the plan of care with the patient's daughter Pertinent ROS: Denies headache, dizziness Denies chest pain, palpitations Denies cough or shortness of breath Denies abdominal pain, nausea or vomiting. - Constitutional Vitals: Vital Signs Temp Pulse Resp BP Pulse Ox 98 F 74 16 144/62 97 07/20/17 14:50 07/20/17 04:00 07/20/17 14:50 07/20/17 14:50 07/20/17 14:50 Period Temp Pulse Resp BP Sys/Benedict Pulse Ox Last 24 Hr 97.4 F-98.8 F 74-87 14-18 124-159/62-71 94-99 Intake and Output 07/20/17 07/20/17 07/20/17 05:59 13:59 21:59 Intake Total 250 / 250 420 / 420 Output Total 800 / 800 300 / 300 300 / 300 Balance -550 / -550 120 / 120 -300 / -300 Intake & Output: Intake & Output 07/20/17 07/20/17 07/20/17 05:59 13:59 21:59 Intake Total 250 / 250 420 / 420 Output Total 800 / 800 300 / 300 300 / 300 Balance -550 / -550 120 / 120 -300 / -300 Intake: IV 100 / 100 INVanz 1 GM In Sodium Chloride 50 / 50 0.9% 50 ml @ 100 mls/hr IV DAILY [facility] Rx#:[id number] Rocephin 2 gm In Dextrose 5% in 50 / 50 Water 50 ml @ 100 mls/hr IV DAILY [facility] Rx#:[id number] Oral 250 / 250 320 / 320 Output: Void Amount 800 / 800 300 / 300 300 / 300 Other: Meal Breakfast Lunch Percent of Meal Consumed 50% 50% Feeding Ability Independent Independent # Voids 1 # Emeses 3 Exam: Constitutional; Afebrile, cooperative, alert, not in distress. Eyes- No icterus, , No periorbital swelling Ears- Ext ear normal, hearing okay to conversation Neck- Midline trachea, supple Respiratory system: Air Entry equal on both sides, No crackles or wheezing, no rhonchi. CVS- Rate rhythm regular, S1,S2 heard, no gallop, no rub. 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 Medical - PN: Obj Da - Labs CBC & Chem 7: 07/20/17 03:50 07/20/17 03:50 Labs: Abnormal Lab Results 07/20/17 07/20/17 07/19/17 03:50 03:50 05:00 RBC 2.90 L Hgb 9.7 L Hct 27.7 L Seg Neutrophils % Lymphocytes % Monocytes % (Manual) Sodium 132 L Potassium 3.1 L Carbon Dioxide 21 L Calcium 7.7 L Phosphorus Alkaline Phosphatase 125 H Total Protein 5.4 L Albumin 2.7 L Urine Occult Blood 0.03 A Ur Leukocyte Esterase 25 A Urine WBC 21 H Urine Bacteria Few A 07/19/17 07/19/17 07/18/17 04:15 04:15 03:50 RBC 2.82 L Hgb 9.3 L Hct 27.2 L Seg Neutrophils % 79 H Lymphocytes % 14 L Monocytes % (Manual) Sodium 130 L 131 L Potassium Carbon Dioxide 20 L 21 L Calcium 7.5 L 7.8 L Phosphorus 2.3 L 2.4 L Alkaline Phosphatase 123 H 147 H Total Protein 4.9 L 5.3 L Albumin 2.4 L 3.0 L Urine Occult Blood Ur Leukocyte Esterase Urine WBC Urine Bacteria 07/18/17 03:50 RBC 2.95 L Hgb 9.7 L Hct 28.7 L Seg Neutrophils % Lymphocytes % 7 L Monocytes % (Manual) 13 H Sodium Potassium Carbon Dioxide Calcium Phosphorus Alkaline Phosphatase Total Protein Albumin Urine Occult Blood Ur Leukocyte Esterase Urine WBC Urine Bacteria Meds: Medications Acetaminophen (Tylenol) 650 mg PO Q4-6HP PRN PRN Reason: PAIN/FEVER > 101 Hydrocodone Bitart/Acetaminophen ([place] 10/325mg) 1 tab PO Q6H PRN PRN Reason: pain Last Admin: 07/20/17 11:10 Dose: 1 tab Aspirin (Aspirin) 81 mg PO DAILY [facility] Last Admin: 07/20/17 09:05 Dose: 81 mg Dextrose (Dextrose 50%) 0 ml IV UD PRN PRN Reason: Hypoglycemia Diagnostic Test (Pha) (Accu-Chek) 1 each FS ACHS [facility] Last Admin: 07/20/17 13:09 Dose: 1 each Furosemide (Lasix) 20 mg PO QDAY PRN PRN Reason: edema Last Admin: 07/20/17 09:06 Dose: 20 mg Glucose (Insta-Glucose) 15 gm PO PRN PRN PRN Reason: Hypoglycemia Heparin Sodium (Porcine) (Heparin) 5,000 unit SQ Q12 [facility] Last Admin: 07/20/17 09:10 Dose: 5,000 unit Magnesium Sulfate (Magnesium Sulfate) 2 gm in 50 mls @ 50 mls/hr IV UD PRN PRN Reason: MG = or < 1.7 Acetaminophen (Ofirmev) 1,000 mg in 100 mls @ 200 mls/hr IV Q6HP PRN PRN Reason: PAIN/FEVER > 101 Ertapenem 1 gm/ Sodium (Chloride) 50 mls @ 100 mls/hr IV DAILY [facility] Last Infusion: 07/20/17 13:40 Dose: Infused Insulin Human Lispro (Humalog) 0 unit SQ ACHS [facility] PRN Reason: Protocol Last Admin: 07/20/17 13:09 Dose: Not Given Lisinopril (Zestril) 5 mg PO QDAY [facility] Last Admin: 07/20/17 09:05 Dose: 5 mg Ondansetron HCl (Zofran) 4 mg IV Q4-6HP PRN PRN Reason: Nausea And Vomiting Last Admin: 07/20/17 14:06 Dose: 4 mg Potassium Chloride (Klor-Con) 40 meq PO DAILYP PRN PRN Reason: K+ < 3.5 Sodium Chloride (Saline Flush) 10 ml IV Q8 [facility] Last Admin: 07/20/17 13:10 Dose: 10 ml Verapamil HCl (Calan Sr) 120 mg PO DAILY [facility] Last Admin: 07/20/17 09:06 Dose: 120 mg Medical - PN: A/P - Time Spent With Patient Total time spent is greater than 50% in coordination of care (as documented) at patient's floor/unit and/or counseling patient: - Narrative A/P Narrative: A/P Community acquired pneumonia-patient treated with IV antibiotics Rocephin and Zithromax, urine strep antigen was positive, however the blood culture is positive for anaerobe at least on the prelim result, therefore antibiotics changed to ertapenem to cover for possible anaerobic pneumonia. Await sensitivity results repeat blood cultures are negative, patient is clinically improving. Severe sepsis resolved Diarrhea-C. difficile negative, stool studies are negative Acute kidney injury-resolved Diabetes on sliding scale insulin glucose at goal Hypertension, blood pressure stable on home medications ANGELY inhibitors and verapamil Altered mental status-resolved patient back to baseline DVT prophylaxis-heparin subcutaneous CODE STATUS full code Diabetic diet Medical - PN: Qual - VTE Deep Vein Thrombosis/Pulmonary Embolism Present on Admission: No
[2017-07-21] MEDS: 0.9 % SODIUM CHLORIDE 10 ML SYRINGE IV SCH ×3 (04:12→21:49)
[2017-07-21 05:53] LABS: Mean Cell Volume 95.9 fL (80.0-100.0); Mean Corpuscular HGB Conc 34.2 g/dL (31.0-36.0); Mean Corpuscular Hemoglobin 32.8 pg (26.0-34.0); Platelet Count 214 K/mcL (140-440); RBC 2.92 M/mcL (4.00-5.20); Red Cell Distribution Width 12.7 % (11.5-14.5)
[2017-07-21 06:19] LABS: ALT/SGPT 8 U/l (0-40); Albumin 2.8 gm/dL (3.2-5.2); Albumin/Globulin Ratio 1.1 (1.0-2.3); Alkaline Phosphatase 110 U/L (39-117); Bilirubin,Direct < 0.2 mg/dL (0.0-0.3); Blood Urea Nitrogen 10 mg/dl (8-23); Gamma Glutamyl Transpeptidase 10 U/L (5-36); Uric Acid 5.3 mg/dL (2.5-8.0)
[2017-07-21 07:22] LABS: Band Neutrophils % 4 % (0-10); Basophils % (Manual) 1 % (0-2); Eosinophils % (Manual) 4 % (0-7); Lymphocytes % 12 % (15-49); Monocytes % (Manual) 16 % (1-12); Platelet Estimate NORMAL (NORMAL); RBC Morphology NORMAL (NORMAL); Segmented Neutrophils % 63 % (38-78)
[2017-07-21] MEDS: INSULIN LISPRO 1 UNIT/0.01 ML UNIT SQ SCH ×4 (07:35→20:52)
[2017-07-21] MEDS: ERTAPENEM 1 GM in 0.9 % SODIUM CHLORIDE 50 ML IV SCH (08:42)
[2017-07-21] MEDS: VERAPAMIL 120 MG TAB.XL.24H PO SCH (08:43)
[2017-07-21] MEDS: HYDROcodone/APAP 10/325MG TABLET PO PRN ×2 (08:43→20:15)
[2017-07-21] MEDS: LISINOPRIL 10 MG TABLET PO SCH (08:43)
[2017-07-21] MEDS: ASPIRIN 81 MG TAB.CHEW PO SCH (08:43)
[2017-07-21] MEDS: HEPARIN 5,000 UNIT/ML VIAL SQ SCH ×2 (08:44→20:14)
--- NOTE | 2017-07-21 15:56 | Internal Med Progress Note ---
Medical - PN: Subj Patient information: Note initiated : 07/21/17 at 3:55 pm Service Date, if different from initiated Date: [] Patient: Nayely Zhao 87 y/o F admitted on 07/17/17 for N/V/D / Severe Sepsis with Pneumonia and Diarrhea. Chief Complaint: [] Interval history: The patient is an 87-year-old with history of dementia who lives with her daughter and granddaughter, and has been in her baseline state of health until over the last 4-1/2 weeks. The patient has experienced progressive nausea after she had an episode of lower extremity infection and was started on antibiotics. The nausea initially was attributed to antibiotics which were subsequently discontinued, but her symptoms persisted over the last few days. The symptoms have progressed with increasing diarrhea and inability to take anything by mouth, along with progressive weakness and shortness of breath. For the last 24 hours the patient has been increasingly confused, not able to take anything by mouth and with persistent nausea and recurrent diarrhea. She was discovered in a nearly unresponsive state and subsequently brought into [facility] ER where initial workup revealed over 19,000 white count with a creatinine of 1.1 and elevated BUN along with elevated lactate and chest infiltrates on imaging. Subsequently, Hospitalist Service was consulted. At the time of evaluation, patient is more awake and able to answer some of the questions. She appears quite ill. She is fairly confused. Per history from the nursing staff, the patient was smeared in stool on most of the abdomen and all the way to the feet. The patient also endorses to significant joint pain. She has remarkable bruising on the lower extremities along with minimal lymphedema. July 18-patient doing remarkably better. Alert and lucid. Hemodynamics stable. Good urine output. No further diarrhea except for one episode of loose stools this morning. No concerns per nursing staff. Patient pleasantly confused. Tangential conversation. No overnight events. White count down from19,000-10,000. Creatinine down from 1.1- 0.7. urine strep pneumo antigen positive.systolics around 140s. Transfer to medical floor. Continue physical therapy. Anticipate SNF transfer in 24-48 hours. No family at bedside.stool studies pending except for C. difficile negative july 20 The patient was deemed stable for discharge yesterday discharge paperwork was nearly done however patient's blood culture report came back +1 bottle positive for gram-positive cocci patient's discharge was therefore held. Repeat set of blood cultures were ordered which are negative growth so far. On discussing with the microbiology lab the patient's positive blood culture is in an anaerobic bottle, patient will stay in the hospital till the microbe is identified. Anaerobes are unlikely to be contaminants. Antibiotic changed, patient started on ertapenem. I reviewed the plan of care with the patient's daughter July 21 pt seen examined, no acute overnight issues blood culture results still nto back, pt otherwise stable repeat cultures are negative continue iv antibiotic, await identification and susceptibility Pertinent ROS: Denies headache, dizziness Denies chest pain, palpitations Denies cough or shortness of breath Denies abdominal pain, nausea or vomiting. - Constitutional Vitals: Vital Signs Temp Pulse Resp BP Pulse Ox 98.2 F 72 16 132/71 100 07/21/17 15:44 07/21/17 04:00 07/21/17 15:44 07/21/17 15:44 07/21/17 15:44 Period Temp Pulse Resp BP Sys/Benedict Pulse Ox Last 24 Hr 97.3 F-99.4 F 66-74 14-16 117-141/68-79 98-100 Intake and Output 07/21/17 07/21/17 07/21/17 05:59 13:59 21:59 Intake Total 50 / 50 530 / 530 Output Total 350 / 350 Balance 50 / 50 180 / 180 Intake & Output: Intake & Output 07/21/17 07/21/17 07/21/17 05:59 13:59 21:59 Intake Total 50 / 50 530 / 530 Output Total 350 / 350 Balance 50 / 50 180 / 180 Intake: IV 50 / 50 INVanz 1 GM In Sodium Chloride 50 / 50 0.9% 50 ml @ 100 mls/hr IV DAILY [facility] Rx#:[id number] Oral 50 / 50 480 / 480 Output: Void Amount 350 / 350 Other: Meal Lunch Percent of Meal Consumed 100% Feeding Ability Independent Exam: Constitutional; Afebrile, cooperative, alert, not in distress. Eyes- No icterus, , No periorbital swelling Neck- Midline trachea, supple Respiratory system: Air Entry equal on both sides, No crackles or wheezing, no rhonchi. CVS- Rate rhythm regular, S1,S2 heard, no gallop, no rub. Abdomen- Soft nontender abdomen, no organomegaly, no tenderness, no guarding or rigidity, GRAPHIC MANAGER- AOOx2-3, moving all extremities, no gross focal deficit noted. Medical - PN: Obj Da - Labs CBC & Chem 7: 07/21/17 04:10 07/21/17 04:10 Labs: Abnormal Lab Results 07/21/17 07/21/17 07/20/17 04:10 04:10 03:50 RBC 2.92 L Hgb 9.6 L Hct 28.0 L Seg Neutrophils % Lymphocytes % 12 L Monocytes % (Manual) 16 H Sodium 132 L 132 L Potassium 3.1 L Carbon Dioxide 21 L Calcium 7.8 L 7.7 L Phosphorus Alkaline Phosphatase 125 H Total Protein 5.4 L 5.4 L Albumin 2.8 L 2.7 L Urine Occult Blood Ur Leukocyte Esterase Urine WBC Urine Bacteria 07/20/17 07/19/17 07/19/17 03:50 05:00 04:15 RBC 2.90 L Hgb 9.7 L Hct 27.7 L Seg Neutrophils % Lymphocytes % Monocytes % (Manual) Sodium 130 L Potassium Carbon Dioxide 20 L Calcium 7.5 L Phosphorus 2.3 L Alkaline Phosphatase 123 H Total Protein 4.9 L Albumin 2.4 L Urine Occult Blood 0.03 A Ur Leukocyte Esterase 25 A Urine WBC 21 H Urine Bacteria Few A 07/19/17 04:15 RBC 2.82 L Hgb 9.3 L Hct 27.2 L Seg Neutrophils % 79 H Lymphocytes % 14 L Monocytes % (Manual) Sodium Potassium Carbon Dioxide Calcium Phosphorus Alkaline Phosphatase Total Protein Albumin Urine Occult Blood Ur Leukocyte Esterase Urine WBC Urine Bacteria Meds: Medications Acetaminophen (Tylenol) 650 mg PO Q4-6HP PRN PRN Reason: PAIN/FEVER > 101 Hydrocodone Bitart/Acetaminophen ([place] 10/325mg) 1 tab PO Q6H PRN PRN Reason: pain Last Admin: 07/21/17 08:43 Dose: 1 tab Aspirin (Aspirin) 81 mg PO DAILY [facility] Last Admin: 07/21/17 08:43 Dose: 81 mg Dextrose (Dextrose 50%) 0 ml IV UD PRN PRN Reason: Hypoglycemia Diagnostic Test (Pha) (Accu-Chek) 1 each FS ACHS [facility] Last Admin: 07/21/17 11:16 Dose: 1 each Furosemide (Lasix) 20 mg PO QDAY PRN PRN Reason: edema Last Admin: 07/20/17 09:06 Dose: 20 mg Glucose (Insta-Glucose) 15 gm PO PRN PRN PRN Reason: Hypoglycemia Heparin Sodium (Porcine) (Heparin) 5,000 unit SQ Q12 [facility] Last Admin: 07/21/17 08:44 Dose: 5,000 unit Magnesium Sulfate (Magnesium Sulfate) 2 gm in 50 mls @ 50 mls/hr IV UD PRN PRN Reason: MG = or < 1.7 Acetaminophen (Ofirmev) 1,000 mg in 100 mls @ 200 mls/hr IV Q6HP PRN PRN Reason: PAIN/FEVER > 101 Ertapenem 1 gm/ Sodium (Chloride) 50 mls @ 100 mls/hr IV DAILY [facility] Last Infusion: 07/21/17 09:29 Dose: Infused Insulin Human Lispro (Humalog) 0 unit SQ ACHS [facility] PRN Reason: Protocol Last Admin: 07/21/17 11:17 Dose: Not Given Lisinopril (Zestril) 5 mg PO QDAY [facility] Last Admin: 07/21/17 08:43 Dose: 5 mg Ondansetron HCl (Zofran) 4 mg IV Q4-6HP PRN PRN Reason: Nausea And Vomiting Last Admin: 07/20/17 14:06 Dose: 4 mg Potassium Chloride (Klor-Con) 40 meq PO DAILYP PRN PRN Reason: K+ < 3.5 Sodium Chloride (Saline Flush) 10 ml IV Q8 [facility] Last Admin: 07/21/17 04:12 Dose: 10 ml Verapamil HCl (Calan Sr) 120 mg PO DAILY [facility] Last Admin: 07/21/17 08:43 Dose: 120 mg Medical - PN: A/P - Time Spent With Patient Total time spent is greater than 50% in coordination of care (as documented) at patient's floor/unit and/or counseling patient: - Narrative A/P Narrative: A/P Community acquired pneumonia-patient treated with IV antibiotics Rocephin and Zithromax, urine strep antigen was positive, however the blood culture is positive for anaerobe at least on the prelim result, therefore antibiotics changed to ertapenem to cover for possible anaerobic pneumonia. Await sensitivity results repeat blood cultures are negative, patient is clinically improving. Severe sepsis resolved Diarrhea-C. difficile negative, stool studies are negative Acute kidney injury-resolved Diabetes on sliding scale insulin glucose at goal Hypertension, blood pressure stable on home medications ANGELY inhibitors and verapamil Altered mental status-resolved patient back to baseline DVT prophylaxis-heparin subcutaneous CODE STATUS full code Diabetic diet Medical - PN: Qual - VTE Deep Vein Thrombosis/Pulmonary Embolism Present on Admission: No
[2017-07-22] MEDS: 0.9 % SODIUM CHLORIDE 10 ML SYRINGE IV SCH (05:30)
[2017-07-22 05:38] LABS: Mean Cell Volume 96.6 fL (80.0-100.0); Mean Corpuscular HGB Conc 33.7 g/dL (31.0-36.0); Mean Corpuscular Hemoglobin 32.5 pg (26.0-34.0); Platelet Count 202 K/mcL (140-440); RBC 2.82 M/mcL (4.00-5.20)
[2017-07-22 06:14] LABS: ALT/SGPT 8 U/l (0-40); Albumin 3.1 gm/dL (3.2-5.2); Albumin/Globulin Ratio 1.4 (1.0-2.3); Alkaline Phosphatase 98 U/L (39-117); Bilirubin,Direct < 0.2 mg/dL (0.0-0.3); Blood Urea Nitrogen 12 mg/dl (8-23); Gamma Glutamyl Transpeptidase 12 U/L (5-36); Uric Acid 4.8 mg/dL (2.5-8.0)
[2017-07-22 07:57] LABS: Band Neutrophils % 2 % (0-10); Eosinophils % (Manual) 4 % (0-7); Lymphocytes % 13 % (15-49); Monocytes % (Manual) 14 % (1-12); Platelet Estimate NORMAL (NORMAL); RBC Morphology NORMAL (NORMAL); Segmented Neutrophils % 67 % (38-78)
[2017-07-22 08:12] LABS: Legionella pneumophilia Ag, Ur NOT DETECTED
[2017-07-22] MEDS: LISINOPRIL 10 MG TABLET PO SCH (09:14)
[2017-07-22] MEDS: VERAPAMIL 120 MG TAB.XL.24H PO SCH (09:14)
[2017-07-22] MEDS: HYDROcodone/APAP 10/325MG TABLET PO PRN (09:14)
[2017-07-22] MEDS: FUROSEMIDE 20 MG TABLET PO PRN (09:14)
[2017-07-22] MEDS: HEPARIN 5,000 UNIT/ML VIAL SQ SCH (09:15)
[2017-07-22] MEDS: ERTAPENEM 1 GM in 0.9 % SODIUM CHLORIDE 50 ML IV SCH (09:16)
[2017-07-22] MEDS: ASPIRIN 81 MG TAB.CHEW PO SCH (09:16)
[2017-07-22] MEDS: INSULIN LISPRO 1 UNIT/0.01 ML UNIT SQ SCH ×2 (09:18→15:53)
--- NOTE | 2017-07-22 11:06 | Discharge Summary ---
Medical - DS: Prov Patient information: Note initiated : 07/22/17 at 11:03 am Service Date, if different from initiated Date: [] Patient: Nayely Zhao a 87 y/o F admitted on 07/17/17 for N/V/D / Severe Sepsis with Pneumonia and Diarrhea. Date of admission: 07/17/17 13:41 Discharge date: 07/22/17 Primary care physician: Leonor Bond Consults: 07/17/17 11:49 Consult to Physician [CONS] Stat Comment: Consulting Provider: Axel Flores Reason For Exam: Physician to Consult Medical - DS: Meds - Discharge Medications Prescriptions: Azithromycin [Zithromax] 250 mg PO DAILY #4 tab Cefdinir 300 mg PO BID #10 cap Active and Home Medications: Home Medications aspirin 81 mg tablet,delayed release 81 mg PO QDAY tab 01/10/15 [History Confirmed 07/18/17 Last Taken 07/16/17] furosemide 20 mg tablet 20 mg PO QDAY PRN #30 tab 09/18/16 [Rx Confirmed Last Taken 07/16/17] lisinopril 10 mg tablet 5 mg PO QDAY 30 Days #15 tab 09/18/16 [Rx Confirmed Last Taken 07/16/17] ascorbate calcium 500 mg tablet 500 mg PO QDAY #30 tab 03/18/17 [Rx Confirmed Last Taken 07/16/17] cyanocobalamin (vitamin B-12) 2,500 mcg tablet 2,500 mcg PO QHS #30 tab [Rx Confirmed 07/18/17 Last Taken 07/16/17] Verapamil HCl [Verapamil ER] 120 mg PO DAILY #30 cap24h.pel 06/29/17 [Rx Confirmed 07/18/17 Last Taken 07/16/17] hydrocodone 10 mg-acetaminophen 325 mg tablet 1 tab PO Q6H PRN #120 tab [Rx Confirmed 07/18/17 Last Taken 07/16/17] Azithromycin [Zithromax] 250 mg PO DAILY #4 tab 07/19/17 [Rx Last Taken Unknown] Cefdinir 300 mg PO BID #10 cap 07/19/17 [Rx Last Taken Unknown] Medical - DS: Hosp Hospital course: Mr. Zhao is a 87 year old F with a history of dementia, who resides with her daughter and granddaughter, and presented to the ER with general malaise for the last 4 weeks, increasing confusion and diarrhea.For the last 24 hours the patient has been increasinglyconfused, not able to take anything by mouth and with persistent nauseaand recurrent diarrhea. She was found in a nearly unresponsivestate and subsequently [facility] whereinitial workup revealed over 19,000 white count with a creatinine of 1.1and elevated BUN along with elevated lactate and chest infiltrates on imaging. Subsequently, Hospitalist Service was consulted. At the timeof evaluation, patient is more awake and able to answer some of the questions. She appears quite ill. She is fairly confused. Per history from the nursing staff, the patient was smeared in stool on most of the abdomen and all the way to the feet. Patient was admitted with LLL community-acquired pneumonia, sepsis syndrome and metabolic encephaopathy. She was empirically started on Azithromycin and Ertapenem. Bloodcultures were 1 out of 4 positive with gram pos cocci, most likely contaminant. Patient has been back to normal baseline functional level and will be discharged to home. Discharge diagnosis: Community-acquired pneumonia Secondary discharge diagnosis: Dementia Hypertension Reason for admission: AMS, sepsis Pertinent studies/significant findings: CXR: left basilar pneumonia R-hip: s/p previous total hip arthroplasty, no fracture CT-abdomen/Pelvis: cholelithiasis - Time Spent with Patient Total time spent providing and/or coordinating discharge services: Less than 30 minutes Medical - DS: Exam - Constitutional Vitals: Vital Signs Temp Pulse Resp BP BP Pulse Ox 07/22/17 07:41 100.0 F H 14 128/69 95 07/22/17 03:56 98.3 F 74 16 118/65 94 07/22/17 00:05 98.5 F 69 16 106/58 95 07/21/17 20:17 97.7 F 73 16 149/76 98 07/21/17 15:44 98.2 F 16 132/71 100 07/21/17 11:51 99.4 F H 16 122/79 98 Intake and Output 07/21/17 07/22/17 07/22/17 21:59 05:59 13:59 Intake Total 400 / 400 0 / 0 Output Total 400 / 400 475 / 475 300 / 300 Balance 0 / 0 -475 / -475 -300 / -300 Intake: Oral 400 / 400 0 / 0 Output: Void Amount 400 / 400 475 / 475 300 / 300 Other: # Voids 1 1 Weight 180 lb General appearance: no acute distress - Respiratory Respiratory exam: Present: normal respiratory exam - Cardiovascular Cardiovascular exam: Present: normal rate and rhythm - GI/Abdominal GI/Abdominal exam: Present: normal bowel sounds - Extremities Exam Extremities exam: Present: normal inspection Medical - DS: Data Labs on day of discharge: Labs from last 24 hours 07/22/17 07/22/17 07/18/17 04:10 04:10 14:41 WBC 5.5 RBC 2.82 L Hgb 9.2 L Hct 27.2 L MCV 96.6 MCH 32.5 MCHC 33.7 RDW 13.0 Plt Count 202 MPV 7.8 Total Counted 100 Seg Neutrophils % 67 Band Neutrophils % 2 Lymphocytes % 13 L Monocytes % (Manual) 14 H Eosinophils % (Manual) 4 Platelet Estimate Normal RBC Morphology Normal Sodium 133 Potassium 3.9 Chloride 99 Carbon Dioxide 24 Anion Gap 10.0 BUN 12 Creatinine 0.6 GFR Calculation 83 Glucose 68 L Uric Acid 4.8 Calcium 7.8 L Phosphorus 2.6 L Magnesium 1.8 Total Bilirubin 0.3 Direct Bilirubin < 0.2 GGT 12 AST 14 ALT 8 Alkaline Phosphatase 98 Lactate Dehydrogenase 143 Total Protein 5.3 L Albumin 3.1 L Globulin 2.2 Albumin/Globulin Ratio 1.4 Triglycerides 73 Stool Norovirus Ag Not detected Ur L.pneumophila Ag 07/17/17 07:10 WBC RBC Hgb Hct MCV MCH MCHC RDW Plt Count MPV Total Counted Seg Neutrophils % Band Neutrophils % Lymphocytes % Monocytes % (Manual) Eosinophils % (Manual) Platelet Estimate RBC Morphology Sodium Potassium Chloride Carbon Dioxide Anion Gap BUN Creatinine GFR Calculation Glucose Uric Acid Calcium Phosphorus Magnesium Total Bilirubin Direct Bilirubin GGT AST ALT Alkaline Phosphatase Lactate Dehydrogenase Total Protein Albumin Globulin Albumin/Globulin Ratio Triglycerides Stool Norovirus Ag Ur L.pneumophila Ag Not detected Preliminary micro results at discharge 07/19/17 08:51 Blood Culture - Preliminary Blood 07/19/17 08:45 Blood Culture - Preliminary Blood 07/19/17 05:00 Urine Culture - Preliminary Urine - Clean Void Mid-Stream Yeast 07/17/17 11:58 Blood Culture - Preliminary Blood 07/17/17 11:43 Blood Culture - Preliminary Blood Gram positive cocci Medical - DS: A/P - Patient/Caregiver Discharge Instructions Activity: as per physical therapy, increase activity as tolerated Diet: Regular Diet Additional Instructions: Resume home diet as tolerated. Activity as tolerated and per physical therapy instructions. Increase activity as tolerated. Continue fall precautions. All meals in chair, sitting upright, at 90 degrees to prevent aspiration. Follow-up PCP in 5 days. Leonor Bond 07/25 at 10:15 am. I recommend physician check CBC, BMP, UA as a post-hospital follow-up and chest x-ray in 1 week. Continue aggressive PT and OT evaluation and treatment. ST eval and treatment if indicated. Please talk to Leonor Bond about continuing. Antibiotics for 5 days. Review risk and side effect profile of medications including antibiotics. Side effect may include mild to severe reaction including rash, diarrhea, C-Diff and even which can be prevented by close follow-up with PCP and monitoring for side effects. Continue aggressive bowel regimen to prevent constipation. Pain medication can cause constipation. Take an over the counter stool softener while on pain medication. Return to ER if worsening fever, chills, shortness of breath, diarrhea, bleeding , nausea and/or vomiting, chest pain, unable to go to the bathroom, uncontrolled pain. Discussed importance of medication adherence Prescriptions: Azithromycin [Zithromax] 250 mg PO DAILY #4 tab Cefdinir 300 mg PO BID #10 cap - Follow up Plan Follow up with: Leonor Bond DNP, [employer] [facility] [facility] [Primary Care Provider] - 07/25/17 10:15 am Disposition: Home Health Service Prognosis: Fair Rehab Potential: Good Overall status at discharge: patient is progressing back to baseline Medical - DS: Qual - VTE Deep Vein Thrombosis/Pulmonary Embolism Present on Admission: No
== END 2017-07-22 14:57 | disposition home health service (06) | DRG 871 ==
LOC: ED 05:22 → ICU 13:36 → MEDSUR 07-18 11:29
PROVIDERS: ADMIT Internal Medicine; ATTEND Specialist

== ENCOUNTER 2017-10-04 16:02 | Inpatient (IN) ==
[2017-10-04] MEDS ORDERED: 0.9 % SODIUM CHLORIDE 1,000 ML IV ONE (16:27)
--- NOTE | 2017-10-04 16:29 | Emergency Department Note ---
Syncope HPI - General Chief Complaint: Syncope Stated Complaint: syncopal episode Time Seen by Provider: 10/04/17 16:04 Source: patient, EMS Mode of arrival: EMS Limitations: no limitations - History of Present Illness HPI Narrative: 87-year-old female who states that she had a syncope episode or getting off the toilet she states she has been feeling dizzy over the past 48 hours. Yesterday she states when she got off the toilet she felt lightheaded. Patient states she had to use the bathroom and she got here and on the commode she had some bright red blood noted in the stools she did not know this was occurring no history of peptic ulcer disease. Patient does not use aspirin or ibuprofen she states she is not on blood thinners. Denies any abdominal pain although she states she had nausea yesterday. Been no vomiting no hematemesis no melena. Denies urgency frequency or dysuria blood pressures 112/60 and a pulse of 76 temperature is 97 her pulse ox is reading at 96% on room air respirations are 10. Her daughter has arrived and she states that she is noticed in the dry skin and some blood tinged on a clean axis concern if she has been having some vomitus of blood. Patient himself denies. Daughter states that she was just started on Eliquis 1 month ago FOR ARIAL FIB - Related Data Home Medications Medication Instructions Recorded Confirmed aspirin 81 mg tablet,delayed 81 mg PO QDAY tab 01/10/15 10/04/17 release Previous Rx's Medication Instructions Recorded furosemide 20 mg tablet 20 mg PO QDAY PRN #30 tab 09/18/16 lisinopril 10 mg tablet 5 mg PO QDAY 30 Days #15 tab 09/18/16 ascorbate calcium 500 mg tablet 500 mg PO QDAY #30 tab 03/18/17 cyanocobalamin (vitamin B-12) 2,500 mcg PO QHS #30 tab 03/18/17 2,500 mcg tablet verapamil ER 120 mg 24 hr 120 mg PO DAILY #30 [email or web address] 08/08/17 capsule,extended release Ferrous Sulfate [Iron] 325 mg PO DAILY #60 tab 10/06/17 hydrocodone 10 mg-acetaminophen 1 tab PO Q6H PRN #120 tab 10/07/17 325 mg tablet Allergies Allergy/AdvReac Type Severity Reaction Status Date / Time Sulfa (Sulfonamide Allergy Mild Rash Verified 09/26/17 13:27 Antibiotics) Review of Systems All systems ED: reviewed and negative except as stated. Constitutional: Denies: fever, chills Eyes: Denies: eye pain ENT ED: Denies: ear pain Cardiovascular: Denies: chest pain, palpitations Respiratory: Denies: shortness of breath, cough Gastrointestinal: Reports: nausea, hematochezia. Denies: abdominal pain, vomiting, diarrhea, constipation, hematemesis, acid reflux, heart burn Genitourinary: Denies: dysuria, urgency Musculoskeletal: Denies: back pain Integumentary: Denies: rash Neurological: Denies: headache Psychiatric: Denies: anxiety Endocrine: Denies: fatigue Hematological/Lymphatic: Denies: easy bleeding Allergic/Immunologic: Denies: facial swelling Past Medical History - Past Medical History Medical history: Reports: dementia, DM (With neuropathy), hypertension, osteoporosis (With compression fracture), other (Hereditary hemochromatosis) Surgical history ED: Reports: tonsillectomy, other (Right great toe amputation) - Social History smoking status: Former smoker Alcohol use: Reports: None Drug use: Reports: none Physical Exam Limitations: no limitations General appearance: alert, anxious Head: atraumatic Eye: Present: normal appearance, PERRL ENT: normal exam, normal oropharynx, mucous membranes moist Neck: Present: normal inspection, full ROM. Absent: trachea midline Chest: Present: normal inspection, symmetric chest wall rise. Absent: tenderness Respiratory: Present: normal lung sounds bilaterally, respiratory distress. Absent: wheezes Cardiovascular: Present: regular rate, tachycardia, irregular rhythm Abdominal: Present: soft. Absent: distention, tenderness Extremities: Present: normal inspection, full ROM Back: Present: normal inspection, full ROM Neurological: Present: oriented X3, CN II-XII intact, normal gait. Absent: motor sensory deficit Psychiatric: Present: normal affect, normal mood Course Vital Signs Temperature 97.5 F 10/04/17 16:02 Pulse Rate 76 10/04/17 16:02 Respiratory Rate 10 L 10/04/17 16:02 Blood Pressure 112/60 10/04/17 16:02 Pulse Oximetry (%) 96 10/04/17 16:02 Temperature 98.8 F 10/06/17 17:03 Pulse Rate 62 10/06/17 17:03 Respiratory Rate 12 10/06/17 17:03 Blood Pressure 141/70 10/06/17 17:03 Pulse Oximetry (%) 96 10/06/17 11:42 Syncope - [facility] Narrative Medical decision making narrative: Her [id number] hematocrit was 39. Vital signs appear to be stable with heart rate of 76 and blood pressures of 136/55 - Lab Data Result diagrams: 10/06/17 09:22 10/06/17 09:22 Lab Results 10/04/17 10/04/17 10/04/17 Range/Units 16:28 16:28 16:28 WBC 12.1 H (4.5-11.0) K/mcL RBC 3.90 L (4.00-5.20) M/mcL Hgb 12.7 (12.0-15.0) g/dL Hct 37.8 (36.0-48.0) % POC Hct 39.0 (36.0-48.0) % MCV 96.8 (80.0-100.0) fL MCH 32.5 (26.0-34.0) pg MCHC 33.6 (31.0-36.0) g/dL RDW 12.3 (11.5-14.5) % Plt Count 211 (140-440) K/mcL MPV 8.4 (7.4-10.4) fL Gran % 82.4 H (38.0-78.0) % Lymph % (Auto) 8.5 L (15.5-49.0) % [place] % (Auto) 7.8 (1.0-12.0) % Eos % (Auto) 1.2 (0.0-7.0) % Baso % (Auto) 0.1 (0.0-2.0) % Gran # 9.9 H (1.8-8.0) K/mcL Lymph # (Auto) 1.0 L (1.5-4.8) K/mcL [place] # (Auto) 0.9 (0.1-0.9) K/mcL Eos # (Auto) 0.1 (0.0-0.7) K/mcL Baso # (Auto) 0 (0.0-0.3) K/mcL POC Sodium 131 L (133-145) mmol/L Sodium (133-145) mmol/L POC Potassium 4.3 (3.3-5.1) mmol/L Potassium (3.3-5.1) mmol/L POC Chloride 96 (96-108) mmol/L Chloride (96-108) mmol/L Carbon Dioxide (22-30) mmol/L POC Total CO2 21 L (22-30) mmol/L Anion Gap (8-16) POC BUN 36 H (8-23) mg/dl BUN (8-23) mg/dl Creatinine (0.6-1.1) mg/dl POC Creatinine 1.2 H (0.6-1.1) mg/dl GFR Calculation Glucose (70-105) mg/dL POC Glucose 187 H (70-105) mg/dL Calcium (8.6-10.4) mg/dl POC WB Ioniz Calcium 1.12 L (1.16-1.32) mmol/L Total Bilirubin (0.0-1.0) mg/dL AST (0-37) U/l ALT (0-40) U/l Alkaline Phosphatase (39-117) U/L Total Creatine Kinase 73 (24-170) IU/L CK-MB (CK-2) 2.7 (0-2.9) ng/ml Troponin T < 0.01 (0-0.03) ng/ml Total Protein (5.9-8.4) gm/dL Albumin (3.2-5.2) gm/dL Globulin (2.2-3.7) gm/dL Albumin/Globulin Ratio (1.0-2.3) Urine Color Urine Appearance Urine pH (5.0-9.0) Ur Specific [place] (1.000-1.035) Urine Protein (NEG) mg/dL Urine Glucose (UA) (NEG) mg/dL Urine Ketones (NEG) mg/dL Urine Occult Blood (<0.03) mg/dL Urine Nitrate (NEG) Urine Bilirubin (NEG) mg/dL Urine Urobilinogen (NEG) mg/dL Ur Leukocyte Esterase (NEG) /uL Ur Culture Indicated? 10/04/17 10/04/17 Range/Units 16:28 18:05 WBC (4.5-11.0) K/mcL RBC (4.00-5.20) M/mcL Hgb (12.0-15.0) g/dL Hct (36.0-48.0) % POC Hct (36.0-48.0) % MCV (80.0-100.0) fL MCH (26.0-34.0) pg MCHC (31.0-36.0) g/dL RDW (11.5-14.5) % Plt Count (140-440) K/mcL MPV (7.4-10.4) fL Gran % (38.0-78.0) % Lymph % (Auto) (15.5-49.0) % [place] % (Auto) (1.0-12.0) % Eos % (Auto) (0.0-7.0) % Baso % (Auto) (0.0-2.0) % Gran # (1.8-8.0) K/mcL Lymph # (Auto) (1.5-4.8) K/mcL [place] # (Auto) (0.1-0.9) K/mcL Eos # (Auto) (0.0-0.7) K/mcL Baso # (Auto) (0.0-0.3) K/mcL POC Sodium (133-145) mmol/L Sodium 129 L (133-145) mmol/L POC Potassium (3.3-5.1) mmol/L Potassium 4.4 (3.3-5.1) mmol/L POC Chloride (96-108) mmol/L Chloride 91 L (96-108) mmol/L Carbon Dioxide 20 L (22-30) mmol/L POC Total CO2 (22-30) mmol/L Anion Gap 18.0 H (8-16) POC BUN (8-23) mg/dl BUN 34 H (8-23) mg/dl Creatinine 1.1 (0.6-1.1) mg/dl POC Creatinine (0.6-1.1) mg/dl GFR Calculation 45 Glucose 187 H (70-105) mg/dL POC Glucose (70-105) mg/dL Calcium 9.1 (8.6-10.4) mg/dl POC WB Ioniz Calcium (1.16-1.32) mmol/L Total Bilirubin 0.6 (0.0-1.0) mg/dL AST 23 (0-37) U/l ALT 15 (0-40) U/l Alkaline Phosphatase 69 (39-117) U/L Total Creatine Kinase (24-170) IU/L CK-MB (CK-2) (0-2.9) ng/ml Troponin T (0-0.03) ng/ml Total Protein 7.1 (5.9-8.4) gm/dL Albumin 3.9 (3.2-5.2) gm/dL Globulin 3.2 (2.2-3.7) gm/dL Albumin/Globulin Ratio 1.2 (1.0-2.3) Urine Color Yellow Urine Appearance Clear Urine pH 6.0 (5.0-9.0) Ur Specific [place] 1.008 (1.000-1.035) Urine Protein Neg (NEG) mg/dL Urine Glucose (UA) Negative (NEG) mg/dL Urine Ketones Neg (NEG) mg/dL Urine Occult Blood Neg (<0.03) mg/dL Urine Nitrate Neg (NEG) Urine Bilirubin Neg (NEG) mg/dL Urine Urobilinogen Neg (NEG) mg/dL Ur Leukocyte Esterase Neg (NEG) /uL Ur Culture Indicated? No Disposition Pt seen by COMMERCIAL TELLER/PA only: No Clinical Impression: Rectal bleeding Disposition: Xfer As Inpt ([facility]) Condition: Fair
[2017-10-04 17:08] LABS: Basophils # (Auto) 0 K/mcL (0.0-0.3); Basophils % (Auto) 0.1 % (0.0-2.0); Eosinophils # (Auto) 0.1 K/mcL (0.0-0.7); Eosinophils % (Auto) 1.2 % (0.0-7.0); Granulocytes % (Auto) 82.4 % (38.0-78.0); Lymphocytes % (Auto) 8.5 % (15.5-49.0); Mean Cell Volume 96.8 fL (80.0-100.0); Mean Corpuscular HGB Conc 33.6 g/dL (31.0-36.0); Mean Corpuscular Hemoglobin 32.5 pg (26.0-34.0); Monocytes # (Auto) 0.9 K/mcL (0.1-0.9); Monocytes % (Auto) 7.8 % (1.0-12.0); Platelet Count 211 K/mcL (140-440); Red Cell Distribution Width 12.3 % (11.5-14.5)
[2017-10-04 17:32] LABS: Creatine Kinase MB 2.7 ng/ml (0-2.9)
[2017-10-04 17:35] LABS: Creatine Kinase 73 IU/L (24-170)
[2017-10-04 17:38] LABS: ALT/SGPT 15 U/l (0-40); Albumin 3.9 gm/dL (3.2-5.2); Albumin/Globulin Ratio 1.2 (1.0-2.3); Alkaline Phosphatase 69 U/L (39-117); Blood Urea Nitrogen 34 mg/dl (8-23)
--- NOTE | 2017-10-04 17:40 | XRay Report ---
CLINICAL INFORMATION: Syncope COMPARISON: 09/25/2017 FINDINGS: Heart size, mediastinum and pulmonary vessels are normal. COPD changes and minor basilar scarring is unchanged. No new pulmonary abnormalities. No effusions. IMPRESSION: COPD changes Interpreted and Authenticated by: Tha Rios 10/04/17
--- NOTE | 2017-10-04 17:41 | XRay Report ---
CLINICAL INFORMATION: Syncope and abdominal pain COMPARISON: 07/17/2017 FINDINGS: Stool gas pattern is normal. No free air, soft tissue mass or organomegaly. IMPRESSION: Negative Interpreted and Authenticated by: Tha Rios 10/04/17
[2017-10-04 18:36] LABS: Appearance,Urine CLEAR; Bilirubin,Urine NEG (NEG); Color,Urine YELLOW; Glucose,Urine (UA) NEGATIVE (NEG); Leukocyte Esterase,Urine NEG /uL (NEG); Protein,Urine NEG (NEG); Specific Gravity,Urine 1.008 (1.000-1.035); Urine Blood NEG mg/dL (<0.03); Urobilinogen,Urine NEG (NEG)
[2017-10-04] MEDS ORDERED: MAGNESIUM CITRATE 300 ML ORAL.SOL ONE (18:44)
[2017-10-04] MEDS ORDERED: PROPOFOL 200 MG/20 ML VIAL IV SCH (20:15)
[2017-10-04] MEDS ORDERED: MIDAZOLAM 2 MG/2 ML VIAL IV SCH (20:15)
[2017-10-04] MEDS ORDERED: PROPOFOL 0 ML IV ONE (20:19)
[2017-10-04] MEDS ORDERED: PROPOFOL 20 ML IV ONE (20:19)
[2017-10-04] MEDS ORDERED: MIDAZOLAM 2 MG/2 ML VIAL ONE (20:19)
--- NOTE | 2017-10-04 21:00 | Internal Med History&Physical ---
Medical - H&P: HPI Patient information: Note initiated : 10/04/17 at 8:56 pm Service Date, if different from initiated Date: [] Patient: Nayely Zhao a 87 y/o F admitted on 10/04/17 for syncopal episode. Chief Complaint: [] Chief complaint: sycope off toilet History of present illness: Ms. Zhao is a 87 year old F with recent AFib was here at hospital 4 months ago and started on Eliquis 2.5mg bid recently. Pt is a terrible historian due to dementia related memory loss. Pt had told EMD that she had dizzyness and light headed for 2 days but doesnt recall that now. Tells me she had a red BM at home she attributed to undigested tomato sauce but now thinks it is blood. She says she wipe her backside flushed and then awoke on the floor with her son helping her up when he came in to bathroom so 3 yo daughter (g daughter of pt) could go pee. The pt was out of it on floor and brought to EMD. She had 2 more red BM in the EMD but she couldnt remember that until RECONCILER told her it was relayed to her from report from EMD. Pt denies vomiting or abdominal pain. Denies chest pain or dizzyness now. Blood pressure was 121 and dropped to 80 standing in EMD prior to fluids. - Constitutional Constitutional: Present: as per HPI - Cardiovascular Cardiovascular: Present: irregular heart rhythm. Absent: chest pain, leg edema - Respiratory Respiratory: Absent: hemoptysis, dyspnea on exertion - Gastrointestinal Gastrointestinal: Present: hematochezia. Absent: bloating, constipation, dyspepsia, heartburn, hematemesis - Musculoskeletal Musculoskeletal: Absent: muscle weakness, myalgias - Integumentary Integumentary: Present: other (no complaints) - Neurological Neurological: Present: syncope - Psychiatric Psychiatric: Present: other (no complaints) - Endocrine Endocrine: Absent: palpitations Medical - H&P: H Medical history: dementia, DM (With neuropathy), hypertension, osteoporosis (With compression fracture), other (Hereditary hemochromatosis) Surgical history: tonsillectomy, other (Right great toe amputation) Family history: reviewed and not pertinent Social history: has multiple family members wants DNR status same as she told bedside RN Cognitive capacity: dementia with memory loss Functional capacity: independent ambulation Smoking status: Former smoker Have you smoked in the last 12 months: No Drug use: none Alcohol use: none Medical - H&P: Meds Home Medications Medication Instructions Recorded Confirmed Type aspirin 81 mg tablet,delayed 81 mg PO QDAY tab 01/10/15 10/04/17 History release furosemide 20 mg tablet 20 mg PO QDAY PRN #30 tab 09/18/16 10/04/17 Rx lisinopril 10 mg tablet 5 mg PO QDAY 30 Days #15 tab 09/18/16 10/04/17 Rx ascorbate calcium 500 mg tablet 500 mg PO QDAY #30 tab 03/18/17 10/04/17 Rx cyanocobalamin (vitamin B-12) 2,500 mcg PO QHS #30 tab 03/18/17 10/04/17 Rx 2,500 mcg tablet apixaban 2.5 mg tablet 2.5 mg PO Q12H #60 tab 08/08/17 10/04/17 Rx verapamil ER 120 mg 24 hr 120 mg PO DAILY #30 cap24h.pel 08/08/17 10/04/17 Rx capsule,extended release hydrocodone 10 mg-acetaminophen 1 tab PO Q6H PRN #120 tab 09/06/17 10/04/17 Rx 325 mg tablet Allergies Allergy/AdvReac Type Severity Reaction Status Date / Time Sulfa (Sulfonamide Allergy Mild Rash Verified 09/26/17 13:27 Antibiotics) Medical - H&P: Exam - Constitutional Vitals: Temp Pulse Resp BP Pulse Ox 97.5 F 84 16 156/64 100 10/04/17 19:43 10/04/17 20:51 10/04/17 20:51 10/04/17 20:51 10/04/17 20:51 General appearance: average body habitus, cooperative, no acute distress - Head Head exam: Present: atraumatic - Eye Eye exam: Present: normal appearance. Absent: conjunctival injection, scleral icterus - Neck Neck exam: Present: normal inspection. Absent: tenderness - Respiratory Respiratory exam: Present: normal respiratory exam, CTAB - Cardiovascular Cardiovascular exam: Present: normal rate and rhythm (NSR currently no ectopy) - GI/Abdominal GI/Abdominal exam: Present: normal bowel sounds, soft. Absent: distended, firm , guarding, pulsatile mass, rebound - Rectal Rectal exam: Present: deferred - Extremities Exam Extremities exam: Present: pedal edema (1-2+ bilateral ankles and feet) - Expanded Upper Extremities Exam Vascular: Present: radial pulse (normal bilat) - Neurological Exam Neurological exam: Present: alert. Absent: oriented X3 Additional comments: oriented to person place but not date or year - Expanded Neurological Exam Neurological exam expanded: Present: memory loss-recent event. Absent: expressive aphasia, inattentive, receptive aphasia, tremor Speech: Present: fluid speech - Skin Skin exam: Present: dry, warm Medical - H&P: Reslt - Labs CBC & Chem 7: 10/04/17 16:28 10/04/17 16:28 Labs: Short CBC 10/04/17 Range/Units 16:28 WBC 12.1 H (4.5-11.0) K/mcL Hgb 12.7 (12.0-15.0) g/dL Hct 37.8 (36.0-48.0) % Plt Count 211 (140-440) K/mcL BMP 10/04/17 16:28 Sodium 129 L Potassium 4.4 Chloride 91 L Carbon Dioxide 20 L BUN 34 H Creatinine 1.1 Glucose 187 H Calcium 9.1 Cardiac Enzymes 10/04/17 10/04/17 Range/Units 16:28 16:28 Total Creatine Kinase 73 (24-170) IU/L CK-MB (CK-2) 2.7 (0-2.9) ng/ml Troponin T < 0.01 (0-0.03) ng/ml Liver Function 10/04/17 Range/Units 16:28 Total Bilirubin 0.6 (0.0-1.0) mg/dL AST 23 (0-37) U/l ALT 15 (0-40) U/l Alkaline Phosphatase 69 (39-117) U/L Albumin 3.9 (3.2-5.2) gm/dL Urine 10/04/17 Range/Units 18:05 Urine Color Yellow Urine Appearance Clear Urine pH 6.0 (5.0-9.0) Ur Specific [place] 1.008 (1.000-1.035) Urine Protein Neg (NEG) mg/dL Urine Glucose (UA) Negative (NEG) mg/dL Medical - H&P: A/P (1) Gastrointestinal bleeding Current visit: Yes Status: Acute NPO and start NS IVF. NO NSAIDS. hold aspirin and stop Eliquis. Await EGD and colonoscopy to determine if further anticoagulation possible. Will check iron studies. PPI IV for now though red blood likely lower GI. BUN elevated but has had in past before. (2) Atrial fibrillation Problem details: patient and her family decline anticoagulant therapy Current visit: No Status: Chronic monitor on telemetry. Will have EGD in ICU tonight. Cont diltiazem (3) Hypertension, essential Current visit: No Status: Chronic stable and will hold BP lisinopril till bleeding confirmed stopped. no transfusion currently needed. (4) Syncope and collapse Current visit: Yes Status: Acute likely related to acute blood loss with orthostatics positive in the EMD. - Narrative A/P Narrative: 55 mins spent in evaluation and coordination of care for this patient today.
[2017-10-04] MEDS: POLYETHYLENE GLYCOL 3350 17 GM PACKET PO SCH (22:33)
[2017-10-04] MEDS: 0.9 % SODIUM CHLORIDE 10 ML SYRINGE IV SCH (22:33)
[2017-10-04] MEDS: 0.9 % SODIUM CHLORIDE 1,000 ML IV SCH (22:38)
[2017-10-05] MEDS: POLYETHYLENE GLYCOL 3350 17 GM PACKET PO SCH ×8 (00:03→12:07)
[2017-10-05] MEDS: 0.9 % SODIUM CHLORIDE 10 ML SYRINGE IV SCH ×2 (05:23→15:44)
[2017-10-05] MEDS: PANTOPRAZOLE 40 MG VIAL IV SCH ×2 (07:02→17:50)
[2017-10-05 07:17] LABS: Basophils # (Auto) 0 K/mcL (0.0-0.3); Basophils % (Auto) 0 % (0.0-2.0); Eosinophils # (Auto) 0 K/mcL (0.0-0.7); Eosinophils % (Auto) 0 % (0.0-7.0); Granulocytes % (Auto) 87.1 % (38.0-78.0); Lymphocytes # (Auto) 0.7 K/mcL (1.5-4.8); Lymphocytes % (Auto) 5.7 % (15.5-49.0); Mean Cell Volume 96.7 fL (80.0-100.0); Mean Corpuscular Hemoglobin 32.9 pg (26.0-34.0); Monocytes # (Auto) 0.9 K/mcL (0.1-0.9); Monocytes % (Auto) 7.2 % (1.0-12.0); Platelet Count 177 K/mcL (140-440); RBC 3.27 M/mcL (4.00-5.20); Red Cell Distribution Width 12.1 % (11.5-14.5)
[2017-10-05 07:39] LABS: Ferritin 796.5 ng/ml (30-400)
[2017-10-05] MEDS ORDERED: MAGNESIUM CITRATE 300 ML ORAL.SOL PO SCH (09:00)
[2017-10-05] MEDS ORDERED: VERAPAMIL 120 MG TAB.XL.24H PO SCH (09:00)
[2017-10-05] MEDS: 0.9 % SODIUM CHLORIDE 1,000 ML IV SCH ×2 (09:40→17:50)
[2017-10-05] MEDS ORDERED: MIDAZOLAM 2 MG/2 ML VIAL IV SCH (13:15)
[2017-10-05] MEDS ORDERED: PROPOFOL 200 MG/20 ML VIAL IV SCH (13:15)
--- NOTE | 2017-10-05 17:19 | Internal Med Progress Note ---
Medical - PN: Subj Patient information: Note initiated : 10/05/17 at 5:17 pm Service Date, if different from initiated Date: [] Patient: Nayely Zhao 87 y/o F admitted on 10/04/17 for syncopal episode. Chief Complaint: [] Interval history: EGD no ulcers or bleeding. Colonoscopy with lots of diverticuli but none with identifiable bleeding. There was an area of ischemic colitis and this may represent watershed ischemia as result of hypotension form the presumed diverticular bleed as suspected by Dr. Ordonez. Pt is without any further bleeding from rectum today and overall feels better. NO afib seen on tele. Daughter related to RN that maybe Eliquis should be stopped. Pt says she has a large home she and built and her daughter as well as many grandchildren live with her. She is never alone. Pertinent ROS: no abdominal pain or chest pain - Constitutional Vitals: Vital Signs Temp Pulse Resp BP Pulse Ox 98.2 F 66 20 113/54 100 10/05/17 16:00 10/05/17 14:36 10/05/17 16:00 10/05/17 16:00 10/05/17 16:00 Period Temp Pulse Resp BP Sys/Benedict Pulse Ox Last 24 Hr 97.5 F-99.6 F 57-98 11-28 84-156/42-115 86-100 Intake and Output 10/05/17 10/05/17 10/05/17 05:59 13:59 21:59 Intake Total 1360 / 1360 Output Total 150 / 150 Balance 1210 / 1210 Intake & Output: Intake & Output 10/05/17 10/05/17 10/05/17 05:59 13:59 21:59 Intake Total 1360 / 1360 Output Total 150 / 150 Balance 1210 / 1210 Intake: IV 1000 / 1000 Sodium Chloride 0.9% 1,000 ml @ 1000 / 1000 100 mls/hr IV .Q10H [place] Rx#: [id number] Oral 360 / 360 Output: Void Amount 150 / 150 Other: Stool Consistency Liquid Watery # Voids 1 # Bowel Movements 1 - Respiratory Respiratory exam: Present: normal respiratory exam. Absent: rales, respiratory distress, rhonchi - Cardiovascular Cardiovascular exam: Present: normal rate and rhythm. Absent: gallop - GI/Abdominal GI/Abdominal exam: Present: normal bowel sounds, soft. Absent: rebound, rigid, tenderness - Extremities Exam Extremities exam: Present: pedal edema Additional comments: trace - Psychiatric Psychiatric exam: Present: normal affect, normal mood Medical - PN: Obj Da - Labs CBC & Chem 7: 10/05/17 04:53 10/04/17 16:28 Labs: Abnormal Lab Results 10/05/17 10/05/17 10/04/17 04:57 04:53 16:28 WBC 12.5 H RBC 3.27 L Hgb 10.8 L Hct 31.6 L Gran % 87.1 H Lymph % (Auto) 5.7 L Gran # 10.9 H Lymph # (Auto) 0.7 L POC Sodium Sodium 129 L Chloride 91 L Carbon Dioxide 20 L POC Total CO2 Anion Gap 18.0 H POC BUN BUN 34 H POC Creatinine Glucose 187 H POC Glucose POC WB Ioniz Calcium Iron 31 L TIBC 162 L Ferritin 796.5 H 10/04/17 10/04/17 16:28 16:28 WBC 12.1 H RBC 3.90 L Hgb Hct Gran % 82.4 H Lymph % (Auto) 8.5 L Gran # 9.9 H Lymph # (Auto) 1.0 L POC Sodium 131 L Sodium Chloride Carbon Dioxide POC Total CO2 21 L Anion Gap POC BUN 36 H BUN POC Creatinine 1.2 H Glucose POC Glucose 187 H POC WB Ioniz Calcium 1.12 L Iron TIBC Ferritin Meds: Medications Magnesium Citrate (Citroma) 300 ml PO ONCE ONE Stop: 10/05/17 18:39 Midazolam HCl (Versed) 0 mg IV ONCE [facility] Stop: 10/05/17 21:01 Last Admin: 10/05/17 14:00 Dose: 1 mg Propofol (Diprivan) 0 mg IV ONCE [facility] Stop: 10/05/17 21:01 Last Admin: 10/05/17 14:00 Dose: 70 mg Sodium Chloride (Saline Flush) 10 ml IV Q8 [facility] Last Admin: 10/05/17 15:44 Dose: Not Given Verapamil HCl (Calan Sr) 120 mg PO DAILY [facility] Last Admin: 10/05/17 09:42 Dose: 120 mg Medical - PN: A/P - Time Spent With Patient Total time spent is greater than 50% in coordination of care (as documented) at patient's floor/unit and/or counseling patient: (1) Gastrointestinal bleeding Status: Acute Assessment and plan: appears to have stopped. Endoscopies completed. ischemic bowel seen but suspected to be result of hypotension from diverticular hemorrhage. Will stop eliquis but cont asa. Advance to low residue diet and if stable then home tomorrow Current Visit: Yes (2) Atrial fibrillation Problem details: patient and her family decline anticoagulant therapy Status: Chronic Assessment and plan: none seen on tele this admission Current Visit: No (3) Hypertension, essential Status: Chronic Assessment and plan: not hypertensive on reduced home med regimen currently. Current Visit: No (4) Syncope and collapse Status: Acute Assessment and plan: off toilet while orthostatic. that has resolved. progressive ambulation in preparation for discharge tomorrow. Current Visit: Yes - Narrative A/P Narrative: 35 mins spent in evaluation and coordination of care for this patient today. Discontinue tele and transfer to med surg level of care.
[2017-10-05] MEDS ORDERED: MAGNESIUM CITRATE 300 ML ORAL.SOL PO ONE (18:38)
[2017-10-06] MEDS: 0.9 % SODIUM CHLORIDE 10 ML SYRINGE IV SCH ×3 (00:12→13:33)
[2017-10-06] MEDS ORDERED: VERAPAMIL 120 MG TAB.XL.24H PO SCH (09:00)
[2017-10-06] MEDS ORDERED: ASPIRIN 81 MG TAB.CHEW PO SCH (09:00)
[2017-10-06 10:01] LABS: Mean Corpuscular HGB Conc 33.6 g/dL (31.0-36.0); Mean Corpuscular Hemoglobin 32.6 pg (26.0-34.0); Platelet Count 165 K/mcL (140-440); RBC 3.41 M/mcL (4.00-5.20); Red Cell Distribution Width 12.2 % (11.5-14.5)
[2017-10-06 10:25] LABS: Blood Urea Nitrogen 17 mg/dl (8-23)
--- NOTE | 2017-10-06 14:50 | Discharge Summary ---
Medical - DS: Prov Patient information: Note initiated : 10/06/17 at 2:46 pm Service Date, if different from initiated Date: [] Patient: Nayely Zhao 87 y/o F admitted on 10/04/17 for syncopal episode. Chief Complaint: [] Date of admission: 10/04/17 19:42 Discharge date: 10/06/17 Primary care physician: Leonor Bond Admitting clinician: Tuan Trinidad Attending physician on admission: Tuan Trinidad Consults: 10/04/17 18:29 Consult to Physician [CONS] Stat Comment: Consulting Provider: Tha Ordonez Reason For Exam: Physician to Consult 10/04/17 18:36 Consult to Physician [CONS] Stat Comment: Consulting Provider: Tuan Trinidad Reason For Exam: Physician to Consult Attending physician on discharge: Tuan Trinidad Medical - DS: Meds - Discharge Medications Prescriptions: Ferrous Sulfate [Iron] 325 mg PO DAILY #60 tab Active and Home Medications: Home Medications aspirin 81 mg tablet,delayed release 81 mg PO QDAY tab 01/10/15 [History Confirmed 10/04/17 Last Taken 07/16/17] furosemide 20 mg tablet 20 mg PO QDAY PRN #30 tab 09/18/16 [Rx Confirmed Last Taken 07/16/17] lisinopril 10 mg tablet 5 mg PO QDAY 30 Days #15 tab 09/18/16 [Rx Confirmed 12/14 Last Taken 07/16/17] ascorbate calcium 500 mg tablet 500 mg PO QDAY #30 tab 03/18/17 [Rx Confirmed Last Taken 07/16/17] cyanocobalamin (vitamin B-12) 2,500 mcg tablet 2,500 mcg PO QHS #30 tab [Rx Confirmed 10/04/17 Last Taken 07/16/17] apixaban 2.5 mg tablet 2.5 mg PO Q12H #60 tab 08/08/17 [Rx Confirmed 10/04/17 Last Taken Unknown] verapamil ER 120 mg 24 hr capsule,extended release 120 mg PO DAILY #30 [email or web address] 08/08/17 [Rx Confirmed 10/04/17 Last Taken Unknown] hydrocodone 10 mg-acetaminophen 325 mg tablet 1 tab PO Q6H PRN #120 tab [Rx Confirmed 10/04/17 Last Taken Unknown] Medical - DS: Hosp Hospital course: Mr. Zhao is a 87 year old F admitted with hypotension and weakness syncope off toilet found by son. Found to have anemia mild hct 37 but received fluid bolus for orthostatic hypotension. Hct drop to 31. EGD done unremarkable. Colonoscopy showed non bleeding diverticuli and an area of ischemic bowl about 6 inches. no active bleeding. Dr. Ordonez suspected that bleeding diverticuli resulted in hypotension and then there was ischemic colitis. Pt did not have hypotension elevated WBC, lactic acidosis or abd pain. Her HCT this morning 33 and she is feeling well. ambulating and ready to go home to live together with her daughter as previous. She previously was reported to have Afib but none observed on tele here. due to 25% recurrence risk of diverticular bleed. Stop eliquis. Discharge diagnosis: diverticular bleed Secondary discharge diagnosis: ischemic colitis Reason for admission: syncope from LGI bleed Pertinent studies/significant findings: EGD and Colonoscopy done Complications: none - Time Spent with Patient Total time spent providing and/or coordinating discharge services: Less than 30 minutes Specific discharge activities: cbc on followup with PCP in 1 week. Take iron as prescribed. Stop the eliquis. low residue diet for 3 days. Medical - DS: Exam - Constitutional Vitals: Vital Signs Temp Pulse Pulse Resp BP BP Pulse Ox 10/06/17 11:42 98.3 F 18 168/77 96 10/06/17 08:49 98.6 F 15 129/59 99 10/06/17 08:00 68 15 99 10/06/17 04:00 98.5 F 68 20 95 10/05/17 23:48 67 130/73 99 10/05/17 20:00 95 10/05/17 19:31 120/58 10/05/17 19:26 98.5 F 16 138/58 100 10/05/17 19:16 138/58 10/05/17 19:02 115/82 10/05/17 18:46 114/58 10/05/17 18:31 111/56 10/05/17 18:16 104/54 10/05/17 18:01 106/57 10/05/17 17:46 116/56 10/05/17 17:31 101/54 10/05/17 17:16 101/53 10/05/17 17:01 109/56 10/05/17 16:46 117/62 10/05/17 16:31 135/62 10/05/17 16:03 114/84 10/05/17 16:00 98.2 F 20 113/54 100 10/05/17 15:46 59 L 109/56 100 10/05/17 15:31 61 121/62 100 Intake and Output 10/06/17 10/06/17 10/06/17 05:59 13:59 21:59 Intake Total 1480 / 1480 Output Total 1100 / 1100 700 / 700 Balance -1100 / -1100 780 / 780 Intake: IV 1000 / 1000 Oral 480 / 480 Output: Urine Catheter Amount 150 / 150 Void Amount 950 / 950 700 / 700 Other: Meal Breakfast Percent of Meal Consumed 100% Feeding Ability Independent Stool Color Yellow Stool Consistency Liquid # Bowel Movements 1 Weight 164 lb 11.2 oz Patient Weight 10/07/17 05:59 Weight 164 lb 11.2 oz Medical - DS: Data Labs on day of discharge: Labs from last 24 hours 10/06/17 10/06/17 09:22 09:22 WBC 6.8 RBC 3.41 L Hgb 11.1 L Hct 33.1 L MCV 97.0 MCH 32.6 MCHC 33.6 RDW 12.2 Plt Count 165 MPV 8.3 Sodium 131 L Potassium 3.6 Chloride 94 L Carbon Dioxide 24 Anion Gap 13.0 BUN 17 Creatinine 0.8 GFR Calculation 67 Glucose 140 H Calcium 8.5 L Medical - DS: A/P - Patient/Caregiver Discharge Instructions Activity: increase activity as tolerated Diet: Regular Diet Additional Instructions: low residue diet for 3 days Prescriptions: Ferrous Sulfate [Iron] 325 mg PO DAILY #60 tab - Problem Maintenance (1) Gastrointestinal bleeding Status: Resolved Comment: diverticular Qualifiers: GI bleed type/associated pathology: diverticulosis Qualified Code(s): K57.91 - Diverticulosis of intestine, part unspecified, without perforation or abscess with bleeding (2) Atrial fibrillation Status: Chronic Comment: patient and her family decline anticoagulant therapy paroxysmal and not found this admission Qualifiers: Atrial fibrillation type: unspecified Qualified Code(s): I48.91 - Unspecified atrial fibrillation (3) Hypertension, essential Status: Chronic (4) Syncope and collapse Status: Acute Comment: due to acute bleeding. ambulating well and safely now. - Follow up Plan Follow up with: Leonor Bond DNP, AMORTIZATION SCHEDULE CLERK [Primary Care Provider] - Disposition: Home, Self-Care Prognosis: Fair Rehab Potential: Good
--- NOTE | 2017-10-07 10:24 | Operative Note ---
DATE OF OPERATION: 10/04/2017 PROCEDURE: Esophagogastroduodenoscopy. ECONOMIC DEVELOPMENT MANAGER AND ROUNDSMAN: Tha Ordonez M.D. ANESTHETIC USED: Propofol 80 mg IV and Versed 1 mg IV. PREOPERATIVE DIAGNOSIS: An 87-year-old white female who I believe was started on Eliquis about a month ago for atrial fibrillation. Earlier this morning she had syncope at home and found herself in a pool of blood from the rectum. At the emergency room, she is found to have bright red blood per rectum. I was contacted [facility] and asked to evaluate. The patient's blood pressure is stable, and her hemoglobin of 12.7 is actually increased from recent measurements at the end of August, but there may be a hemoconcentration. Her BUN is elevated at 36 with creatinine normal at 1.1. The elevated BUN relative to creatinine makes me wonder whether she has an upper GI bleed possibly. Certainly most likely would be a diverticular hemorrhage from the colon. POSTOPERATIVE DIAGNOSIS: Normal EGD. DESCRIPTION OF PROCEDURE: Prior to the procedure, the patient provided her own informed consent. The patient was evaluated and considered medically fit for endoscopy. With the patient in the left lateral decubitus position, a gastroscope was advanced via the mouth to the esophagus under direct vision. The esophagus appears normal throughout its length without ulcer, stricture, mass, hiatal hernia, or varices. In the stomach, there is some small amount of food material and some thick liquid but no gross blood. No ulcer. No gastric varices. The duodenum was normal to the third portion. COMPLICATIONS: None immediate. RECOMMENDATIONS AND FOLLOWUP: 1 Continue to hold Eliquis. 2. Start bowel prep tonight and resume again in the morning tomorrow with colonoscopy planned for tomorrow afternoon at about 2:00 p.m. I want to give the Eliquis as much time for the effect to wear off as possible. Continue to monitor hemoglobin and hematocrit as you are doing. Transfuse if needed. RASHIDA:armaan Job ID: [id number] Doc ID: [id number] Tha Bond NP
--- NOTE | 2017-10-07 10:40 | Operative Note ---
DATE OF OPERATION: 10/05/2017 PROCEDURE: Colonoscopy. MIDDLE SCHOOL PROFESSIONAL AND PAGE DESIGNER: Tha Ordonez M.D. ANESTHETIC USED: Propofol 70 mg IV and Versed 1 mg IV. PREOPERATIVE DIAGNOSIS: The patient was recently started on Eliquis a few weeks ago and presented yesterday after syncope and gross GI bleeding. EGD performed last night was unremarkable. Colon prep was given through the night and this morning and colonoscopy planned for today. POSTOPERATIVE DIAGNOSES: 1. Diverticulosis at the sigmoid colon without active or recent bleeding site identified. 2. Segment of ischemic colitis at the sigmoid colon. DESCRIPTION OF PROCEDURE: Prior to the procedure, the patient and her daughter provided informed consent. The patient was evaluated and considered medically fit for endoscopy. With the patient in the left lateral decubitus position, a rectal exam was performed which was unremarkable. Thereafter, a colonoscope was advanced into the rectum under direct vision. The quality of the prep was excellent. Exam was completed to the cecum where the appendiceal orifice was identified. On insertion of the scope, there is at least moderate diverticulosis involving the sigmoid colon. Above the sigmoid colon I did not see any diverticula. I examined the diverticulosis as best I could. I certainly found no bleeding actively. There was no altered blood anywhere in the colon. None of the diverticula that I observed had any clots to suggest which diverticulum was the source of bleeding. There is about a 7-10 cm segment of the sigmoid colon which is grossly ischemic. The scope traversed the ischemic segment without difficulty. No therapeutics were required. No vascular lesions seen. No mass lesions or significant polyps. COMPLICATIONS: None immediate. RECOMMENDATIONS AND FOLLOWUP: It is not clear whether the patient had a gross diverticular bleed leading to syncope and resulting in ischemic colitis or whether she had no bleeding from diverticulosis and simply bled from the ischemic colitis. I tend to think the former scenario is more likely as she had syncope. Typically, patients with ischemic colitis do not bleed heavily and they usually have pain, and since ischemic colitis does not usually bleed heavily it would not typically be a cause of syncope. I think it is more likely that she had painless rectal bleeding from diverticulosis which was abundant enough to then cause ischemic colitis. I am not sure why she did not have pain from the ischemic colitis. I would recommend holding Eliquis for at least 5 days. If this is diverticular bleeding as I suspect, the fact that she bled once from diverticulosis makes it more likely that she will bleed again. There is an approximately 3% lifetime risk of bleeding for patients with diverticulosis. After the first episode of diverticular bleeding, the likelihood for future GI bleeding from diverticulosis goes up to about 25%. For now, I am going to advance to a soft solid food diet. Observe for any gross rectal bleeding to resume. Transfuse if necessary. Continue to monitor hemoglobin and hematocrit. JCM:armaan Job ID: [id number] Doc ID: [id number] Tha Bond NP
== END 2017-10-06 16:30 | disposition home or self-care (01) | DRG 377 ==
LOC: ED 16:02 → ICU 19:42 → MEDSUR 10-06 09:25
PROVIDERS: ADMIT Internal Medicine; ATTEND Internal Medicine

== ENCOUNTER 2018-06-02 16:30 | Inpatient (IN) ==
--- NOTE | 2018-06-02 16:52 | Emergency Department Note ---
Skin/Abscess/FB HPI - General Chief complaint: Skin/Abscess/Foreign Body Stated complaint: bilateral leg wounds Time Seen by Provider: 06/02/18 16:36 Source: patient Mode of arrival: EMS Limitations: no limitations - History of Present Illness HPI Narrative: She was dropped off by her grandson and thus we have no history. Wounds appear to be well dressed and does have some compression dressings on we did contact the daughter at home who states that the patient started developing swelling and wounds that were weeping to the lower extremities over the past week and a half. Currently the daughter states that physical therapy has been applying the c ompression dressings patient has been seen by wound care in the past but it has been a while.Temperature is 98.7 the pulse is 85 the respirations are 16 blood pressure 128/60 pulse ox is 98% her Accu-Chek is 118 - Related Data Home Medications Medication Instructions Recorded Confirmed aspirin 81 mg tablet,delayed 81 mg PO QDAY tab 01/10/15 04/04/18 release Previous Rx's Medication Instructions Recorded ascorbate calcium 500 mg tablet 500 mg PO QDAY #30 tab 03/18/17 cyanocobalamin (vitamin B-12) 2,500 mcg PO QHS #30 tab 03/18/17 2,500 mcg tablet lisinopril 10 mg tablet 5 mg PO QDAY 30 Days #15 tab 11/01/17 verapamil ER 120 mg 24 hr 120 mg PO DAILY #30 [email or web address] 01/16/18 capsule,extended release furosemide 20 mg tablet 20 mg PO QDAY PRN #30 tab 03/14/18 hydrocodone 10 mg-acetaminophen 1 tab PO Q6H PRN #120 tab 04/09/18 325 mg tablet Allergies Allergy/AdvReac Type Severity Reaction Status Date / Time Sulfa (Sulfonamide Allergy Mild Rash Verified 06/02/18 16:32 Antibiotics) apixaban [From Eliquis] AdvReac Intermediate rectal Verified 06/02/18 16:32 bleeding Review of Systems All systems ED: reviewed and negative except as stated. Constitutional: Denies: fever, chills Integumentary: Reports: as per HPI, other (Swelling to the lower legs with some weeping wounds noted on the right particularly) Past Medical History - Past Medical History PMFSH Narrative: All Active Problems (Last Reviewed 07/25/17 @ 10:27 by Leonor Bond DNP, COLLECTIONS ASSOCIATE) Syncope and collapse (Acute) Rectal bleeding (Acute) Hyponatremia (Acute) Volume depletion (Acute) Complicated UTI (urinary tract infection) (Acute) Left lower lobe pulmonary infiltrate (Acute) Dizziness (Acute) Anemia (Acute) Memory changes (Chronic) Depression (Acute) Degenerative arthritis of foot (Acute) Pressure ulcer of foot, stage 1 (Acute) Atrial fibrillation (Chronic) Pneumonia (Acute) Diarrhea (Acute) Nausea & vomiting (Acute) Parkinsonian features (Acute) Edema (Chronic) Irregular heart rhythm (Acute) Hallucinations (Chronic) 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) Osteoporosis (Chronic) Fracture lumbar vertebra-closed (Chronic) Hypertension, essential (Chronic 04/19/14) 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) Diabetes mellitus, type II (Chronic) Past Surgical History (Last Reviewed 07/25/17 @ 10:27 by Leonor Bond DNP, BRII) History of amputation (Resolved) History of tonsillectomy (Resolved) Family History (Last Reviewed 07/25/17 @ 10:27 by Leonor Bond DNP, BRII) Father Type 2 diabetes mellitus Paternal Grandfather Type 2 diabetes mellitus Social History (Last Updated 04/04/18 @ 16:28 by Leonor Bond DNP, BRII) No Social History Section defined Medical history: Reports: dementia, DM (With neuropathy), hypertension, osteoporosis (With compression fracture), other (Hereditary hemochromatosis) Surgical history ED: Reports: tonsillectomy, other (Right great toe amputation) - Social History smoking status: Former smoker Alcohol use: Reports: None Drug use: Reports: none Physical Exam Limitations: no limitations General appearance: alert, anxious Head: atraumatic, normocephalic Eye: Present: normal appearance, PERRL ENT: normal exam, normal oropharynx Neck: Present: normal inspection, full ROM Chest: Present: normal inspection, symmetric chest wall rise Respiratory: Present: normal lung sounds bilaterally. Absent: respiratory distress, rales/crackles, wheezes Cardiovascular: Present: regular rate, normal rhythm. Absent: bradycardia, tachycardia Abdominal: Present: soft Hip/Pelvis: Present: normal inspection, full ROM Upper leg: Present: normal inspection, full ROM Knee: Present: normal inspection, full ROM Lower leg: Present: swelling, other ( open sores to the lower extremities) Ankle: Present: normal inspection, full ROM. Absent: tenderness Foot/toe: Present: normal inspection. Absent: full ROM, tenderness, swelling, abrasion, laceration, ecchymosis, deformity Back: Present: normal inspection, full ROM. Absent: tenderness Neurological: Present: CN II-XII intact, reflexes normal, other (Patient has dementia). Absent: motor sensory deficit Psychiatric: Present: flat affect Skin: Present: warm, dry Course Vital Signs Temperature 98.7 F 06/02/18 16:31 Pulse Rate 85 06/02/18 16:31 Respiratory Rate 16 06/02/18 16:31 Blood Pressure 128/60 06/02/18 16:31 Pulse Oximetry (%) 98 06/02/18 16:31 Temperature 98.7 F 06/02/18 16:31 Pulse Rate 90 06/02/18 19:01 Respiratory Rate 16 06/02/18 16:31 Blood Pressure 118/60 06/02/18 19:01 Pulse Oximetry (%) 99 06/02/18 19:01 Skin/Abscess/Foreign Body - MDM Narrative Medical decision making narrative: WBC is 22,600 hemoglobin 9.4 hematocrit of 28.5 to [place] is 0.9 he was 126 the potassium 4.2 the BUN is 36 the creatinine 0.8 the patient has been started on vancomycin after blood cultures have been drawn and cultures taken. Dr. Huff contacted patient to be admitted - Lab Data Result diagrams: 06/02/18 17:28 Lab Results 06/02/18 06/02/18 06/02/18 Range/Units 17:28 17:28 17:28 WBC 22.6 H (4.5-11.0) K/mcL RBC 2.87 L (4.00-5.20) M/mcL Hgb 9.4 L (12.0-15.0) g/dL Hct 28.5 L (36.0-48.0) % POC Hct 26.0 L (36.0-48.0) % MCV 99.5 (80.0-100.0) fL MCH 32.6 (26.0-34.0) pg MCHC 32.8 (31.0-36.0) g/dL RDW 12.8 (11.5-14.5) % Plt Count 251 (140-440) K/mcL MPV 7.6 (7.4-10.4) fL Gran % 90.9 H (38.0-78.0) % Lymph % (Auto) 3.0 L (15.5-49.0) % [place] % (Auto) 5.9 (1.0-12.0) % Eos % (Auto) 0.1 (0.0-7.0) % Baso % (Auto) 0.1 (0.0-2.0) % Gran # 20.6 H (1.8-8.0) K/mcL Lymph # (Auto) 0.7 L (1.5-4.8) K/mcL [place] # (Auto) 1.3 H (0.1-0.9) K/mcL Eos # (Auto) 0 (0.0-0.7) K/mcL Baso # (Auto) 0 (0.0-0.3) K/mcL VBG Lactic Acid 0.9 (0.5-2.0) mmol/L POC Sodium 126 L (133-145) mmol/L POC Potassium 4.2 (3.3-5.1) mmol/L POC Chloride 93 L (96-108) mmol/L POC Total CO2 22 (22-30) mmol/L POC BUN 36 H (8-23) mg/dl POC Creatinine 0.8 (0.6-1.1) mg/dl POC Glucose 118 H (70-105) mg/dL POC WB Ioniz Calcium 1.12 L (1.16-1.32) mmol/L Disposition Pt seen by REDRYING MACHINE OPERATOR/PA only: No Clinical Impression: Venous stasis ulcer Disposition: Xfer As Inpt ([facility]) Condition: Fair Referrals: Leonor Bond, KIMBERLY, COLLECTIONS ASSOCIATE [Primary Care Provider] -
[2018-06-02 18:30] LABS: Basophils # (Auto) 0 K/mcL (0.0-0.3); Basophils % (Auto) 0.1 % (0.0-2.0); Eosinophils # (Auto) 0 K/mcL (0.0-0.7); Eosinophils % (Auto) 0.1 % (0.0-7.0); Granulocytes % (Auto) 90.9 % (38.0-78.0); Lymphocytes # (Auto) 0.7 K/mcL (1.5-4.8); Mean Cell Volume 99.5 fL (80.0-100.0); Mean Corpuscular HGB Conc 32.8 g/dL (31.0-36.0); Monocytes # (Auto) 1.3 K/mcL (0.1-0.9); Monocytes % (Auto) 5.9 % (1.0-12.0); Platelet Count 251 K/mcL (140-440); RBC 2.87 M/mcL (4.00-5.20); Red Cell Distribution Width 12.8 % (11.5-14.5)
[2018-06-02] MEDS ORDERED: VANCOMYCIN 1,500 MG in 0.9 % SODIUM CHLORIDE 500 ML IV ONE (19:00)
[2018-06-02] MEDS ORDERED: VANCOMYCIN 1,000 MG in 0.9 % SODIUM CHLORIDE 250 ML IV ONE (19:11)
--- NOTE | 2018-06-02 22:04 | Internal Med History&Physical ---
Medical - H&P: [facility] Patient information: Note initiated : 06/02/18 at 10:01 pm Service Date, if different from initiated Date: [] Patient: Nayely Zhao a 88 y/o F admitted on for bilateral leg wounds. Chief Complaint: [] History of present illness: Ms. Zhao is a 88 year old F who is pleasantly demented presents to the emergency room for evaluation of lower extremity swelling ulceration and redness. The patient is confused unable to provide any meaningful history most of the history is from chart review as well as talking to the ED nurse. No family by the bedside. According to the nurse the patient had been having swelling of lower extremeties and weeping wounds that has been getting worse the last 4 days, patient has had multiple scratches and is now some redness developing on both the lower extr emities. She was therefore sent here for further evaluation. The patient denies any other complaints she denies any headache chest pain shortness of breath cough denies any abdominal pain nausea vomiting diarrhea constipation or any urinary complaints. On presentation the ER the patient was afebrile heart rate 85 blood pressure 128/60 saturation 97% on room air. Labs show elevated WBC count at 22,600, hemoglobin 9.4 platelets 251 lactic acid 0.9, sodium 126 chloride 93 potassium 4.2 bicarbonate 22 glucose 118, creatinine 0.8 BUN 36. BNP pro calcitonin TSH is pending Chest x-ray done shows chronic COPD changes no acute infiltrate noted Patient is being admitted to the hospital with a diagnosis of cellulitis and possible fluid overload All systems: reviewed and no additional remarkable complaints except as stated Medical - H&P: PM Medical history: Medical History (Last Reviewed 07/25/17 @ 10:27 by Leonor Bond, KIMBERLY, TRANSPORTATION WORKER) Dizziness (Acute) Anemia (Acute) Memory changes (Chronic) Depression (Acute) Atrial fibrillation (Chronic) Parkinsonian features (Acute) Edema (Chronic) Irregular heart rhythm (Acute) Hallucinations (Chronic) 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) Osteoporosis (Chronic) Fracture lumbar vertebra-closed (Chronic) Hypertension, essential (Chronic 04/19/14) 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) Diabetes mellitus, type II (Chronic) Abnormal finding on thyroid function test (Resolved) Closed hip fracture (Resolved 09/14/13) Skin lesion of right lower extremity (Resolved) Transient hypertension of , with delivery (Resolved) Wrist fracture, closed (Resolved) Surgical history: Past Surgical History (Last Reviewed 07/25/17 @ 10:27 by Leonor Bond, KIMBERLY, TRANSPORTATION WORKER) History of amputation (Resolved) History of tonsillectomy (Resolved) Pertinent family history: Family History (Last Reviewed 07/25/17 @ 10:27 by Leonor Bond, KIMBERLY, TRANSPORTATION WORKER) Father Type 2 diabetes mellitus Paternal Grandfather Type 2 diabetes mellitus Medical - H&P: Meds Home Medications Medication Instructions Recorded Confirmed Type aspirin 81 mg tablet,delayed 81 mg PO QDAY tab 01/10/15 04/04/18 History release ascorbate calcium 500 mg tablet 500 mg PO QDAY #30 tab 03/18/17 04/04/18 Rx cyanocobalamin (vitamin B-12) 2,500 mcg PO QHS #30 tab 03/18/17 04/04/18 Rx 2,500 mcg tablet lisinopril 10 mg tablet 5 mg PO QDAY 30 Days #15 tab 11/01/17 04/04/18 Rx verapamil ER 120 mg 24 hr 120 mg PO DAILY #30 [email or web address] 01/16/18 04/04/18 Rx capsule,extended release furosemide 20 mg tablet 20 mg PO QDAY PRN #30 tab 03/14/18 04/04/18 Rx hydrocodone 10 mg-acetaminophen 1 tab PO Q6H PRN #120 tab 04/09/18 Rx 325 mg tablet Allergies Allergy/AdvReac Type Severity Reaction Status Date / Time Sulfa (Sulfonamide Allergy Mild Rash Verified 06/02/18 16:32 Antibiotics) apixaban [From Eliquis] AdvReac Intermediate rectal Verified 06/02/18 16:32 bleeding Medical - H&P: Exam - Constitutional Vitals: Temp Pulse Resp BP Pulse Ox 98.7 F 106 H 16 131/63 97 06/02/18 16:31 06/02/18 21:46 06/02/18 16:31 06/02/18 21:46 06/02/18 21:46 Exam: Constitutional; Afebrile, cooperative, alert, not in distress. thinly built Eyes- No icterus, , No periorbital swelling Ears- Ext ear normal, hearing normal to conversation. Neck- Midline trachea, supple Respiratory system: Air Entry equal on both sides, No crackles or wheezing, no rhonchi. CVS- Rate rhythm irregular, S1,S2 heard, no gallop, no rub. 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 gwen lower extremity swelling, with erythema and warmth, predominaly on the right lower extremity. pitting edema ++++ Medical - H&P: Reslt - Labs CBC & Chem 7: 06/02/18 17:28 Labs: Short CBC 06/02/18 Range/Units 17:28 WBC 22.6 H (4.5-11.0) K/mcL Hgb 9.4 L (12.0-15.0) g/dL Hct 28.5 L (36.0-48.0) % Plt Count 251 (140-440) K/mcL Medical - H&P: A/P - Narrative A/P Narrative: A/P Fluid overload -treat with lasix, no e/o gross chf on x ray chest. Cellulitis -IV vanco and zosyn for now, monitor response, diuresis should help Atrial fibrillatin -not on anticoagulatino, on verapramil, resume same, rate controlled Dementia -high risk fo delrium, resume home meds Hyponatremia sodium low 126, salt tablets to continue DM SSI insulin for glucose control DVT hep sq Diet regular Full code Social History - Social History household members: family housing: house lives independently: No marital status: occupational status: retired pets and animals: Yes sexually active: No - Pets pets and animals: cat(s), dog(s) - Dietary Habits well-balanced diet: daily or most days daily servings fruits/ve-4 during the past year weight has: remained stable - Exercise physical activity: none - Tobacco smoking status: Former smoker - Alcohol alcohol intake frequency: does not drink - Substance use substance use type: does not use - Aimee/Congregation aimee/congregational: [employer]aeism - Safety seatbelt use: always - Home Safety working smoke detector in home: No
[2018-06-02 22:59] LABS: Appearance,Urine HAZY; Bacteria,Urine 0 /hpf (0); Bilirubin,Urine NEG (NEG); Color,Urine YELLOW; Glucose,Urine (UA) NEGATIVE (NEG); Leukocyte Esterase,Urine 500 /uL (NEG); Mucus,Urine FEW /hpf (0); Protein,Urine NEG (NEG); Specific Gravity,Urine 1.014 (1.000-1.035); Urine Blood 0.2 mg/dL (<0.03); Urine Budding Yeast MOD /hpf (0); Urine Hyphae Yeast FEW /hpf (0); Urine RBC 12 /hpf (0-1); Urine Squamous Epithelial Cell < 1 /hpf (0-4); Urine Transitional Epi Cells < 1 /hpf (0-2); Urine WBC 117 /hpf (0-4); Urobilinogen,Urine NEG (NEG)
[2018-06-02] MEDS ORDERED: ACETAMINOPHEN 325 MG TABLET PO PRN (23:30)
[2018-06-02] MEDS ORDERED: HYDROmorphone 2 MG/ML VIAL IV PRN (23:30)
[2018-06-02] MEDS ORDERED: VANCOMYCIN PER PHARMACY IV ONE (23:30)
[2018-06-02] MEDS ORDERED: NALOXONE HCL 0.4 MG/ML VIAL IV PRN (23:30)
[2018-06-02] MEDS ORDERED: ONDANSETRON 4 MG/2 ML VIAL IV PRN (23:30)
[2018-06-02] MEDS ORDERED: oxyCODONE HCL 5 MG TABLET PO PRN (23:30)
[2018-06-02] MEDS ORDERED: DEXTROSE 50% 50 ML VIAL IV PRN (23:30)
[2018-06-02] MEDS ORDERED: DEXTROSE 31 GM ORAL.SUSP PO PRN (23:30)
[2018-06-02] MEDS ORDERED: FUROSEMIDE 20 MG/2 ML VIAL IV ONE (23:37)
[2018-06-02] MEDS ORDERED: HEPARIN 5,000 UNIT/ML VIAL ONE (23:37)
[2018-06-02] MEDS ORDERED: FUROSEMIDE 40 MG/4 ML VIAL IV ONE (23:38)
[2018-06-03] MEDS: FUROSEMIDE 40 MG/4 ML VIAL IV SCH ×3 (00:14→17:25)
[2018-06-03] MEDS: 0.9 % SODIUM CHLORIDE 10 ML SYRINGE IV SCH ×4 (00:26→22:25)
[2018-06-03] MEDS: SODIUM CHLORIDE 1 GM TABLET PO SCH ×4 (00:28→20:12)
[2018-06-03] MEDS: PIPERACILLIN SODIUM/TAZOBACTAM 3.375 GM in DEXTROSE 5% IN WATER 50 ML IV SCH ×5 (00:30→23:50)
[2018-06-03] MEDS ORDERED: VANCOMYCIN PER PHARMACY IV SCH (06:30)
[2018-06-03 06:31] LABS: Basophils # (Auto) 0 K/mcL (0.0-0.3); Basophils % (Auto) 0.1 % (0.0-2.0); Eosinophils # (Auto) 0 K/mcL (0.0-0.7); Eosinophils % (Auto) 0.1 % (0.0-7.0); Granulocytes % (Auto) 90.8 % (38.0-78.0); Lymphocytes # (Auto) 0.5 K/mcL (1.5-4.8); Lymphocytes % (Auto) 2.5 % (15.5-49.0); Mean Cell Volume 98.6 fL (80.0-100.0); Mean Corpuscular HGB Conc 33.6 g/dL (31.0-36.0); Monocytes # (Auto) 1.3 K/mcL (0.1-0.9); Monocytes % (Auto) 6.5 % (1.0-12.0); Platelet Count 237 K/mcL (140-440); RBC 2.76 M/mcL (4.00-5.20); Red Cell Distribution Width 12.8 % (11.5-14.5)
[2018-06-03 06:37] LABS: ALT/SGPT 9 U/l (0-40); Albumin 2.5 gm/dL (3.2-5.2); Albumin/Globulin Ratio 0.7 (1.0-2.3); Alkaline Phosphatase 112 U/L (39-117); Bilirubin,Direct < 0.2 mg/dL (0.0-0.3); Blood Urea Nitrogen 38 mg/dl (8-23); Gamma Glutamyl Transpeptidase 18 U/L (5-36); Uric Acid 7.7 mg/dL (2.5-8.0)
[2018-06-03] MEDS: INSULIN LISPRO 1 UNIT/0.01 ML UNIT SQ SCH ×4 (07:52→20:23)
--- NOTE | 2018-06-03 08:05 | XRay Report ---
HISTORY: Congestive heart failure FINDINGS: Lung volumes are relatively large. There are prominent increased interstitial lung markings bilaterally. The greatest involvement is at the left lung base. The bibasilar infiltrates seen on the chest x-ray done on 03/01/18 have resolved. Patient has now returned to her baseline state which was seen on 02/26/18. There is no evidence of congestive heart failure or pleural effusion. The heart size is normal. The aorta is mildly tortuous. IMPRESSION: COPD and no evidence of congestive heart failure Interpreted and Authenticated by: Oskar Quinones 06/03/18
[2018-06-03] MEDS ORDERED: HYDROcodone/APAP 10/325MG TABLET PO PRN (09:45)
[2018-06-03] MEDS: HEPARIN 5,000 UNIT/ML VIAL SQ SCH ×2 (11:03→20:12)
[2018-06-03] MEDS: VERAPAMIL 120 MG TAB.XL.24H PO SCH (11:04)
[2018-06-03] MEDS: ASPIRIN 81 MG TAB.CHEW PO SCH (11:04)
[2018-06-03] MEDS: VANCOMYCIN 1,000 MG in 0.9 % SODIUM CHLORIDE 250 ML IV SCH ×2 (11:05→20:12)
--- NOTE | 2018-06-03 14:58 | Internal Med Progress Note ---
Medical - PN: Subj Patient information: Note initiated : 06/03/18 at 2:56 pm Service Date, if different from initiated Date: [] Patient: Nayely Zhao a 88 y/o F admitted on 06/02/18 for bilateral leg wounds. Chief Complaint: [] Interval history: Ms. Zhao is a 88 year old F who is pleasantly demented presents to the emergency room for evaluation of lower extremity swelling ulceration and redness. The patient is confused unable to provide any meaningful history most of the history is from chart review as well as talking to the ED nurse. No family by the bedside. According to the nurse the patient had been having swelling of lower extremeties and weeping wounds that has been getting worse the last 4 days, patient has had multiple scratches and is now some redness developing on both the lower extremi ties. She was therefore sent here for further evaluation. The patient denies any other complaints she denies any headache chest pain shortness of breath cough denies any abdominal pain nausea vomiting diarrhea constipation or any urinary complaints. On presentation the ER the patient was afebrile heart rate 85 blood pressure 128/60 saturation 97% on room air. Labs show elevated WBC count at 22,600, hemoglobin 9.4 platelets 251 lactic acid 0.9, sodium 126 chloride 93 potassium 4.2 bicarbonate 22 glucose 118, creatinine 0.8 BUN 36. BNP pro calcitonin TSH is pending Chest x-ray done shows chronic COPD changes no acute infiltrate noted Patient is being admitted to the hospital with a diagnosis of cellulitis and possible fluid overload 2/5 Pt seen examined, no acute issues, low grade fever noted, still has significant edema, gwen lower extremities, but denies any complaints, is lying comfortably in bed, pleasantly confused. Pertinent ROS: Denies headache, dizziness Denies chest pain, palpitations Denies cough or shortness of breath Denies abdominal pain, nausea or vomiting. - Constitutional Vitals: Vital Signs Temp Pulse Resp BP Pulse Ox 100.8 F H 92 H 16 96/53 98 06/03/18 12:11 06/03/18 12:11 06/03/18 12:11 06/03/18 12:11 06/03/18 12:11 Period Temp Pulse Resp BP Sys/Benedict Pulse Ox Last 24 Hr 97.3 F-100.8 F 64-106 12-16 96-136/53-77 91-100 Intake and Output 06/03/18 06/03/18 06/03/18 05:59 13:59 21:59 Intake Total 475 850 Output Total 600 600 Balance -125 250 Weight 179 lb 8 oz 179 lb 8 oz Patient Weight 06/04/18 05:59 Weight 179 lb 8 oz Intake & Output: Intake & Output 06/03/18 06/03/18 06/03/18 05:59 13:59 21:59 Intake Total 475 850 Output Total 600 600 Balance -125 250 Weight 179 lb 8 oz 179 lb 8 oz Intake: IV 50 50 Zosyn 3.375 gm In Dextrose 5% 50 50 in Water 50 ml @ 100 mls/hr IV Q6H [facility] Rx#:[id number] Oral 425 800 Output: Void Amount 600 600 Other: Meal Lunch Percent of Meal Consumed 75% Urine Appearance Clear Urine Color Straw Urine Odor Normal Exam: Constitutional; Afebrile, cooperative, alert, not in distress. think frail lady Respiratory system: Air Entry equal on both sides, No crackles or wheezing, no rhonchi. CVS- Rate rhythm regular, S1,S2 heard, no gallop, no rub. 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 gwen edema present, erythema gwen unchanged Medical - PN: Obj Da - Labs CBC & Chem 7: 06/03/18 04:25 06/03/18 04:25 Labs: Abnormal Lab Results 06/03/18 06/03/18 06/02/18 04:25 04:25 21:55 WBC 19.7 H RBC 2.76 L Hgb 9.1 L Hct 27.2 L POC Hct Gran % 90.8 H Lymph % (Auto) 2.5 L Gran # 17.9 H Lymph # (Auto) 0.5 L [place] # (Auto) 1.3 H POC Sodium Sodium 127 L POC Chloride Chloride 91 L POC BUN BUN 38 H Glucose 162 H POC Glucose Calcium 8.4 L POC WB Ioniz Calcium NT-Pro-B Natriuret Pep Albumin 2.5 L Albumin/Globulin Ratio 0.7 L Urine Occult Blood 0.2 A Ur Leukocyte Esterase 500 A Urine RBC 12 H Urine WBC 117 H Ur Yeast w Hyphae Few A Urine Yeast (Budding) Mod A 0206/02/18 06/02/18 21:30 17:28 17:28 WBC 22.6 H RBC 2.87 L Hgb 9.4 L Hct 28.5 L POC Hct 26.0 L Gran % 90.9 H Lymph % (Auto) 3.0 L Gran # 20.6 H Lymph # (Auto) 0.7 L [place] # (Auto) 1.3 H POC Sodium 126 L Sodium POC Chloride 93 L Chloride POC BUN 36 H BUN Glucose POC Glucose 118 H Calcium POC WB Ioniz Calcium 1.12 L NT-Pro-B Natriuret Pep 1714.0 H Albumin Albumin/Globulin Ratio Urine Occult Blood Ur Leukocyte Esterase Urine RBC Urine WBC Ur Yeast w Hyphae Urine Yeast (Budding) Meds: Medications Acetaminophen (Tylenol) 650 mg PO Q6HP PRN PRN Reason: PAIN/FEVER > 101 Hydrocodone Bitart/Acetaminophen ([place] 10/325mg) 1 tab PO Q6HP PRN PRN Reason: Pain Aspirin (Aspirin) 162 mg PO DAILY [facility] Last Admin: 06/03/18 11:04 Dose: 162 mg Documented by: Cyanocobalamin (Vitamin B-12) 2,500 mcg PO HS [facility] Dextrose (Dextrose 50%) 0 ml IV UD PRN PRN Reason: Hypoglycemia Diagnostic Test (Pha) (Accu-Chek) 1 each FS ACHS [facility] Last Admin: 06/03/18 12:03 Dose: 1 each Documented by: Furosemide (Lasix) 40 mg IV BIDD [facility] Last Admin: 06/03/18 11:04 Dose: 40 mg Documented by: Glucose (Insta-Glucose) 15 gm PO PRN PRN PRN Reason: Hypoglycemia Heparin Sodium (Porcine) (Heparin) 5,000 unit SQ Q12 [facility] Last Admin: 06/03/18 11:03 Dose: 5,000 unit Documented by: Hydromorphone HCl (Dilaudid) 0.5 mg IV Q2HP PRN PRN Reason: PAIN LEVEL > 6 Piperacillin Sod/Tazobactam (Sod 3.375 gm/ Dextrose) 50 mls @ 100 mls/hr IV Q6H [facility] Last Admin: 06/03/18 12:22 Dose: 100 mls/hr Documented by: Vancomycin HCl 1,000 mg/ (Sodium Chloride) 250 mls @ 250 mls/hr IV Q12H [facility] Last Admin: 06/03/18 11:05 Dose: 250 mls/hr Documented by: Insulin Human Lispro (Humalog) 0 unit SQ ACHS [facility]; Protocol Last Admin: 06/03/18 13:04 Dose: 3 units Documented by: Lisinopril (Zestril) 5 mg PO DAILY [facility] Naloxone HCl (Narcan) 0.1 mg IV Q2MIN PRN PRN Reason: Opiate Reversal Ondansetron HCl (Zofran) 4 mg IV Q6HP PRN PRN Reason: Nausea And Vomiting Sodium Chloride (Saline Flush) 10 ml IV Q8 [facility] Last Admin: 06/03/18 05:59 Dose: 10 ml Documented by: Sodium Chloride (Sodium Chloride) 1 gm PO TID [facility] Last Admin: 06/03/18 11:05 Dose: 1 gm Documented by: Vancomycin HCl (Vancomycin Per Pharmacy) 1 order IV UD [facility] Verapamil HCl (Calan Sr) 120 mg PO DAILY [facility] Last Admin: 06/03/18 11:04 Dose: 120 mg Documented by: Medical - PN: A/P - Time Spent With Patient Total time spent is greater than 50% in coordination of care (as documented) at patient's floor/unit and/or counseling patient: - Narrative A/P Narrative: A/P Fluid overload -treat with lasix, no e/o gross chf on x ray chest. -pt does not wish for a gomez, bladde scan qid for now. Cellulitis -IV vanco and zosyn for now, monitor response, diuresis should help wound culture are growing staph aureus and gram neg bacillus Atrial fibrillatin -not on anticoagulation, on verapramil, resume same, rate controlled Dementia -high risk fo delrium, resume home meds Hyponatremia sodium low 127, salt tablets to continue DM SSI insulin for glucose control DVT hep sq Diet regular Full code
--- NOTE | 2018-06-03 16:50 | General Surgery Consult Note ---
History of Present Illness Patient information: Note initiated : 06/03/18 at 4:47 pm Service Date, if different from initiated Date: [] Patient: Nayely Zhao 88 y/o F admitted on 06/02/18 for bilateral leg wounds. Chief Complaint: [] Consult date: 06/03/18 Requesting physician: Huasm Huff ([facility]) History of present illness: I reviewed this patient's ESR and examined her along with Leonor RODRIGUES inpatient wound care nurse. This is an 88-year-old lady with dementia. She is resident of a [facility] facility. Admitted to the hospital via emergency room with complicated skin and skin structure infection and cellulitis of both legs and inflammation in the perineal and external genitalia regions. Information was gathered from the nursing staff and going through her records. Patient is a poor historian. Medications and Allergies Home Medications Medication Instructions Recorded Confirmed Type aspirin 81 mg tablet,delayed 162 mg PO QDAY tab 01/10/15 06/03/18 History release ascorbate calcium 500 mg tablet 500 mg PO QDAY #30 tab 03/18/17 06/03/18 Rx cyanocobalamin (vitamin B-12) 2,500 mcg PO QHS #30 tab 03/18/17 06/03/18 Rx 2,500 mcg tablet lisinopril 10 mg tablet 5 mg PO QDAY 30 Days #15 tab 11/01/17 06/03/18 Rx verapamil ER 120 mg 24 hr 120 mg PO DAILY #30 [email or web address].pel 01/16/18 06/03/18 Rx capsule,extended release furosemide 20 mg tablet 20 mg PO QDAY PRN #30 tab 03/14/18 06/03/18 Rx hydrocodone 10 mg-acetaminophen 1 tab PO Q6H PRN #120 tab 04/09/18 06/03/18 Rx 325 mg tablet Allergies Allergy/AdvReac Type Severity Reaction Status Date / Time Sulfa (Sulfonamide Allergy Mild Rash Verified 06/02/18 16:32 Antibiotics) apixaban [From Eliquis] AdvReac Intermediate rectal Verified 06/02/18 16:32 bleeding Exam Temp Pulse Resp BP Pulse Ox 100.5 F H 88 12 86/45 96 06/03/18 15:45 06/03/18 15:45 06/03/18 15:45 06/03/18 15:45 06/03/18 15:45 - General physical appearance well developed, well nourished, moderate distress - Eyes PERRL, normal ocular movement - ENT normal pinna, normal nares, normal mucosa, no congestion - Head Head exam IM: Present: atraumatic, normal inspection, normocephalic - Neck no masses, trachea midline, no venous distension - Cardiovascular Cardiovascular exam IM: Present: normal rate and rhythm - Respiratory normal respiratory effort, clear to auscultation - Abdomen Abdomen: Present: soft, non tender, bowel sounds - Genitourinary Present: other (Erythema and fungal dermatitis around external genitalia. ) - Rectum Rectum: Present: other (inflamed external hemorrhoids, skin and subcutaneous t issue in the perianal area especially the right buttock. Needs a rectal and vagianl examination. Will reassess agin later. ) - Integumentary Present: other (post-phlebitis syndrome with the skin, subcutaneous edema both legs from the Down to the toes. Scattered superficial ulcerations with the slough in the wound bases. Chronic fungal dermatitis.) - Neurologic Present: normal coordination - Musculoskeletal Present: other (able to stand with walker and walk a few steps.) - Psychiatric Present: other (Pleasantly confused. History of dementia.) Results - Labs 06/04/18 04:05 06/04/18 04:05 Abnormal lab results 06/02/18 06/02/18 06/02/18 Range/Units 17:28 17:28 21:30 WBC 22.6 H (4.5-11.0) K/mcL RBC 2.87 L (4.00-5.20) M/mcL Hgb 9.4 L (12.0-15.0) g/dL Hct 28.5 L (36.0-48.0) % POC Hct 26.0 L (36.0-48.0) % Gran % 90.9 H (38.0-78.0) % Lymph % (Auto) 3.0 L (15.5-49.0) % Gran # 20.6 H (1.8-8.0) K/mcL Lymph # (Auto) 0.7 L (1.5-4.8) K/mcL [place] # (Auto) 1.3 H (0.1-0.9) K/mcL POC Sodium 126 L (133-145) mmol/L Sodium (133-145) mmol/L POC Chloride 93 L (96-108) mmol/L Chloride (96-108) mmol/L POC BUN 36 H (8-23) mg/dl BUN (8-23) mg/dl Glucose (70-105) mg/dL POC Glucose 118 H (70-105) mg/dL Calcium (8.6-10.4) mg/dl POC WB Ioniz Calcium 1.12 L (1.16-1.32) mmol/L NT-Pro-B Natriuret Pep 1714.0 H (0-450) pg/ml Albumin (3.2-5.2) gm/dL Albumin/Globulin Ratio (1.0-2.3) Urine Occult Blood (<0.03) mg/dL Ur Leukocyte Esterase (NEG) /uL Urine RBC (0-1) /hpf Urine WBC (0-4) /hpf Ur Yeast w Hyphae (0) /hpf Urine Yeast (Budding) (0) /hpf 06/02/18 06/03/18 06/03/18 Range/Units 21:55 04:25 04:25 WBC 19.7 H (4.5-11.0) K/mcL RBC 2.76 L (4.00-5.20) M/mcL Hgb 9.1 L (12.0-15.0) g/dL Hct 27.2 L (36.0-48.0) % POC Hct (36.0-48.0) % Gran % 90.8 H (38.0-78.0) % Lymph % (Auto) 2.5 L (15.5-49.0) % Gran # 17.9 H (1.8-8.0) K/mcL Lymph # (Auto) 0.5 L (1.5-4.8) K/mcL [place] # (Auto) 1.3 H (0.1-0.9) K/mcL POC Sodium (133-145) mmol/L Sodium 127 L (133-145) mmol/L POC Chloride (96-108) mmol/L Chloride 91 L (96-108) mmol/L POC BUN (8-23) mg/dl BUN 38 H (8-23) mg/dl Glucose 162 H (70-105) mg/dL POC Glucose (70-105) mg/dL Calcium 8.4 L (8.6-10.4) mg/dl POC WB Ioniz Calcium (1.16-1.32) mmol/L NT-Pro-B Natriuret Pep (0-450) pg/ml Albumin 2.5 L (3.2-5.2) gm/dL Albumin/Globulin Ratio 0.7 L (1.0-2.3) Urine Occult Blood 0.2 A (<0.03) mg/dL Ur Leukocyte Esterase 500 A (NEG) /uL Urine RBC 12 H (0-1) /hpf Urine WBC 117 H (0-4) /hpf Ur Yeast w Hyphae Few A (0) /hpf Urine Yeast (Budding) Mod A (0) /hpf Diabetes panel 06/03/18 Range/Units 04:25 Sodium 127 L (133-145) mmol/L Potassium 3.7 (3.3-5.1) mmol/L Chloride 91 L (96-108) mmol/L Carbon Dioxide 22 (22-30) mmol/L BUN 38 H (8-23) mg/dl Creatinine 1.0 (0.6-1.1) mg/dl Glucose 162 H (70-105) mg/dL Calcium 8.4 L (8.6-10.4) mg/dl AST 17 (0-37) U/l ALT 9 (0-40) U/l Alkaline Phosphatase 112 (39-117) U/L Total Protein 6.2 (5.9-8.4) gm/dL Albumin 2.5 L (3.2-5.2) gm/dL Triglycerides 66 (<150) mg/dl Thyroid panel 06/02/18 Range/Units 21:30 TSH 2.87 (0.27-5.01) uIU/ml Calcium panel 06/03/18 Range/Units 04:25 Calcium 8.4 L (8.6-10.4) mg/dl Phosphorus 3.2 (2.7-4.5) mg/dL Albumin 2.5 L (3.2-5.2) gm/dL Pituitary panel 06/02/18 06/03/18 Range/Units 21:30 04:25 Sodium 127 L (133-145) mmol/L Potassium 3.7 (3.3-5.1) mmol/L Chloride 91 L (96-108) mmol/L Carbon Dioxide 22 (22-30) mmol/L BUN 38 H (8-23) mg/dl Creatinine 1.0 (0.6-1.1) mg/dl Glucose 162 H (70-105) mg/dL Calcium 8.4 L (8.6-10.4) mg/dl TSH 2.87 (0.27-5.01) uIU/ml Adrenal panel 06/03/18 Range/Units 04:25 Sodium 127 L (133-145) mmol/L Potassium 3.7 (3.3-5.1) mmol/L Chloride 91 L (96-108) mmol/L Carbon Dioxide 22 (22-30) mmol/L BUN 38 H (8-23) mg/dl Creatinine 1.0 (0.6-1.1) mg/dl Glucose 162 H (70-105) mg/dL Calcium 8.4 L (8.6-10.4) mg/dl Total Bilirubin 0.7 (0.0-1.0) mg/dL AST 17 (0-37) U/l ALT 9 (0-40) U/l Alkaline Phosphatase 112 (39-117) U/L Total Protein 6.2 (5.9-8.4) gm/dL Albumin 2.5 L (3.2-5.2) gm/dL All other labs normal. Assessment and Plan (1) Venous stasis ulcer Status: Chronic Priority: Low Qualifiers: Venous stasis ulcer site: other part of lower leg Varicose vein presence: with varicose veins Laterality: left Non-pressure ulcer stage: limited to breakdown of skin Qualified Code(s): I83.028 - Varicose veins of left lower extremity with ulcer other part of lower leg; L97.821 - Non-pressure chronic ulcer of other part of left lower leg limited to breakdown of skin (2) Abscess of anal and rectal regions Status: Acute Priority: Medium Comment: Patient seeds to be examined in s upine or lateral position, when she is lying in bed. Reassess later. ?? Perianl absess. Recommend: Local soaks ( Sitz baths ) for now.
[2018-06-03] MEDS: CYANOCOBALAMIN (VITAMIN B-12) 500 MCG TABLET PO SCH (20:11)
[2018-06-04] MEDS: PIPERACILLIN SODIUM/TAZOBACTAM 3.375 GM in DEXTROSE 5% IN WATER 50 ML IV SCH ×4 (05:26→23:44)
[2018-06-04] MEDS: 0.9 % SODIUM CHLORIDE 10 ML SYRINGE IV SCH ×3 (05:26→22:14)
[2018-06-04 06:48] LABS: Basophils # (Auto) 0 K/mcL (0.0-0.3); Basophils % (Auto) 0.1 % (0.0-2.0); Eosinophils # (Auto) 0.1 K/mcL (0.0-0.7); Eosinophils % (Auto) 0.7 % (0.0-7.0); Granulocytes % (Auto) 89.4 % (38.0-78.0); Lymphocytes # (Auto) 0.5 K/mcL (1.5-4.8); Lymphocytes % (Auto) 3.4 % (15.5-49.0); Mean Cell Volume 98.7 fL (80.0-100.0); Monocytes % (Auto) 6.4 % (1.0-12.0); Platelet Count 241 K/mcL (140-440)
[2018-06-04 08:03] LABS: ALT/SGPT 13 U/l (0-40); Albumin 2.5 gm/dL (3.2-5.2); Albumin/Globulin Ratio 0.7 (1.0-2.3); Alkaline Phosphatase 108 U/L (39-117); Bilirubin,Direct < 0.2 mg/dL (0.0-0.3); Blood Urea Nitrogen 35 mg/dl (8-23); Gamma Glutamyl Transpeptidase 19 U/L (5-36); Uric Acid 6.7 mg/dL (2.5-8.0)
[2018-06-04] MEDS ORDERED: MAGNESIUM SULFATE 2 GM/50 ML BAG IV SCH (08:15)
[2018-06-04] MEDS ORDERED: VERAPAMIL HCL 120 MG PO SCH (09:00)
[2018-06-04] MEDS ORDERED: FUROSEMIDE 40 MG/4 ML VIAL IV SCH (09:00)
[2018-06-04] MEDS: INSULIN LISPRO 1 UNIT/0.01 ML UNIT SQ SCH ×4 (09:04→22:13)
[2018-06-04] MEDS: VANCOMYCIN 1,000 MG in 0.9 % SODIUM CHLORIDE 250 ML IV SCH ×2 (10:12→11:39)
[2018-06-04] MEDS: POTASSIUM CHLORIDE 20 MEQ PACKET PO SCH ×2 (11:00→15:01)
[2018-06-04] MEDS: ASPIRIN 81 MG TAB.CHEW PO SCH (11:17)
[2018-06-04] MEDS: SODIUM CHLORIDE 1 GM TABLET PO SCH ×3 (11:18→22:13)
[2018-06-04] MEDS: VERAPAMIL 120 MG TAB.XL.24H PO SCH (11:18)
[2018-06-04] MEDS: HEPARIN 5,000 UNIT/ML VIAL SQ SCH ×2 (11:18→22:13)
[2018-06-04] MEDS: LISINOPRIL 5 MG TABLET PO SCH (11:19)
--- NOTE | 2018-06-04 15:03 | General Surgery Progress Note ---
Subjective Patient reports: other (I saw this patient with Leonor RODRIGUES. Patient does not voice any subjective complaints. Perianal / rectal discomfort is less.) Narrative: Note initiated : 06/04/18 at 2:59 pm Service Date, if different from initiated Date: [] Patient: Nayely Zhao 88 y/o F admitted on 06/02/18 for bilateral leg wounds. Chief Complaint: [] Objective Temp Pulse Resp BP Pulse Ox 99 F 88 12 100/48 99 06/04/18 11:00 06/04/18 11:00 06/04/18 11:00 06/04/18 11:00 06/04/18 11:00 Temperature 90.9F. Vital signs are stable. Tachycardia has resolved. Temperature is defervescing. There are no interval changes in her general physical examination. Patient was examined in bed in supine and left lateral decubitus positions. Her abdomen is soft and nontender. No peritoneal signs. Bowel sounds heard in all 4 quadrants. Local examination: There is a right posterior perianal abscess which has drained spontaneously. There is still some adherent slough and eschar at the wound base. It is closely connected to the rectal wall. There is no evidence of perianal fistula. Vaginal examination is significant for prolapse of uterus. Erythema of both legs has improved with chlorhexidine washes and topical antifungal cream application. - Additional Data Intake & Output - Last 24 hours: Intake & Output 06/02/18 06/03/18 06/04/18 06/05/18 05:59 05:59 05:59 05:59 Intake Total 725 1900 350 Output Total 600 2650 350 Balance 125 -750 0 Weight 179 lb 8 oz 178 lb 8 oz - Labs 06/04/18 04:05 06/04/18 04:05 Diabetes panel 06/04/18 Range/Units 04:05 Sodium 129 L (133-145) mmol/L Potassium 2.8 L* (3.3-5.1) mmol/L Chloride 93 L (96-108) mmol/L Carbon Dioxide 23 (22-30) mmol/L BUN 35 H (8-23) mg/dl Creatinine 1.0 (0.6-1.1) mg/dl Glucose 121 H (70-105) mg/dL Calcium 8.1 L (8.6-10.4) mg/dl AST 20 (0-37) U/l ALT 13 (0-40) U/l Alkaline Phosphatase 108 (39-117) U/L Total Protein 6.2 (5.9-8.4) gm/dL Albumin 2.5 L (3.2-5.2) gm/dL Triglycerides 75 (<150) mg/dl Calcium panel 06/04/18 Range/Units 04:05 Calcium 8.1 L (8.6-10.4) mg/dl Phosphorus 3.4 (2.7-4.5) mg/dL Albumin 2.5 L (3.2-5.2) gm/dL Pituitary panel 06/04/18 Range/Units 04:05 Sodium 129 L (133-145) mmol/L Potassium 2.8 L* (3.3-5.1) mmol/L Chloride 93 L (96-108) mmol/L Carbon Dioxide 23 (22-30) mmol/L BUN 35 H (8-23) mg/dl Creatinine 1.0 (0.6-1.1) mg/dl Glucose 121 H (70-105) mg/dL Calcium 8.1 L (8.6-10.4) mg/dl Adrenal panel 06/04/18 Range/Units 04:05 Sodium 129 L (133-145) mmol/L Potassium 2.8 L* (3.3-5.1) mmol/L Chloride 93 L (96-108) mmol/L Carbon Dioxide 23 (22-30) mmol/L BUN 35 H (8-23) mg/dl Creatinine 1.0 (0.6-1.1) mg/dl Glucose 121 H (70-105) mg/dL Calcium 8.1 L (8.6-10.4) mg/dl Total Bilirubin 0.5 (0.0-1.0) mg/dL AST 20 (0-37) U/l ALT 13 (0-40) U/l Alkaline Phosphatase 108 (39-117) U/L Total Protein 6.2 (5.9-8.4) gm/dL Albumin 2.5 L (3.2-5.2) gm/dL Assessment and Plan (1) Venous stasis ulcer Status: Chronic Current Visit: Yes (2) Abscess of anal and rectal regions Problem details: Patient seeds to be examined in supine or lateral position, when she is lying in bed. Reassess later. ?? Perianl absess. Recommend: Local soaks ( Sitz baths ) for now. 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 Responding to treatment. Plan: Continue present treatment. Assessment: Right posterior perianal abscess. Needs evaluation by general surgery for proctoscopy and further debridement as indicated. Plan: Continue wound care and sitz baths. General surgery consult for Dr. Faustino Vickers. Current Visit: Yes - Time Spent With Patient Total time spent is greater than 50% in coordination of care (as documented) at patient's floor/unit and/or counseling patient:
--- NOTE | 2018-06-04 15:55 | General Surgery Consult Note ---
History of Present Illness Patient information: Note initiated : 06/04/18 at 3:54 pm Service Date, if different from initiated Date: [] Patient: Nayely Zhao 88 y/o F admitted on 06/02/18 for bilateral leg wounds. Chief Complaint: [] Reason for consult: other (perianal abscess with perineal cellulitis) Requesting physician: Sonido Shelby History of present illness: 88-year-old female admitted on June 17 with extensive cellulitis of lower extremities and perineum with draining sinus of the right medial buttock with suspected perirectal abscess. I'm asked to evaluate the patient by Dr. Shelby. By evaluation is limited to that examination. The patient has dementia and cannot answer questions. Her initial white blood count was 22,600 but with antibiotic coverage if his decreased to 15,600. The concern is whether or not the abscess extends into the vaginal or rectal vault. Medications and Allergies Home Medications Medication Instructions Recorded Confirmed Type aspirin 81 mg tablet,delayed 162 mg PO QDAY tab 01/10/15 06/03/18 History release ascorbate calcium 500 mg tablet 500 mg PO QDAY #30 tab 03/18/17 06/03/18 Rx cyanocobalamin (vitamin B-12) 2,500 mcg PO QHS #30 tab 03/18/17 06/03/18 Rx 2,500 mcg tablet lisinopril 10 mg tablet 5 mg PO QDAY 30 Days #15 tab 11/01/17 06/03/18 Rx verapamil ER 120 mg 24 hr 120 mg PO DAILY #30 [email or web address] 01/16/18 06/03/18 Rx capsule,extended release furosemide 20 mg tablet 20 mg PO QDAY PRN #30 tab 03/14/18 06/03/18 Rx hydrocodone 10 mg-acetaminophen 1 tab PO Q6H PRN #120 tab 04/09/18 06/03/18 Rx 325 mg tablet Allergies Allergy/AdvReac Type Severity Reaction Status Date / Time Sulfa (Sulfonamide Allergy Mild Rash Verified 06/02/18 16:32 Antibiotics) apixaban [From Eliquis] AdvReac Intermediate rectal Verified 06/02/18 16:32 bleeding Exam Temp Pulse Resp BP Pulse Ox 97 F 70 14 108/40 90 06/04/18 15:43 06/04/18 15:43 06/04/18 15:43 06/04/18 15:43 06/04/18 15:43 - Neck no masses, no bruits, trachea midline, no lymphadenopathy, no venous distension - Cardiovascular Cardiovascular exam IM: Present: irregular rhythm, RRR, +S1, +S2. Absent: JVD - Respiratory normal expansion, normal respiratory effort, clear to percussion, clear to auscultation - Abdomen Abdomen: Present: soft, non tender, bowel sounds - Rectum Rectum: Present: no masses, other (the patient has extensive cellulitis of her perineum involving her perianal area and the area of the opening to her vaginal vault. She has prominent swollen indurated external hemorrhoids. She has very poor anal tone. There is surgically created opening in the right medial buttock with drainage of purulent material. Probing of this area reveals that it extends about 4 cm into the buttock but does not extend much superiorly. With digital examination the area of induration does not extend to the wall of the rectum nor does it extend to the wall of the vagina. There is no vaginal involvement. Palpation of the area surrounding the opening reveals an area of induration measuring about 5 cm totally. Probing of the short tract with digital examination reveals that it does not extend more superiorly or laterally. Cultures of the wound were taken) Results - Labs 06/04/18 04:05 06/04/18 04:05 Abnormal lab results 06/04/18 06/04/18 Range/Units 04:05 04:05 WBC 15.6 H (4.5-11.0) K/mcL RBC 2.60 L (4.00-5.20) M/mcL Hgb 8.5 L (12.0-15.0) g/dL Hct 25.7 L (36.0-48.0) % Gran % 89.4 H (38.0-78.0) % Lymph % (Auto) 3.4 L (15.5-49.0) % Gran # 13.9 H (1.8-8.0) K/mcL Lymph # (Auto) 0.5 L (1.5-4.8) K/mcL Price # (Auto) 1.0 H (0.1-0.9) K/mcL Sodium 129 L (133-145) mmol/L Potassium 2.8 L* (3.3-5.1) mmol/L Chloride 93 L (96-108) mmol/L BUN 35 H (8-23) mg/dl Glucose 121 H (70-105) mg/dL Calcium 8.1 L (8.6-10.4) mg/dl Magnesium 1.4 L (1.6-2.5) mg/dL Albumin 2.5 L (3.2-5.2) gm/dL Albumin/Globulin Ratio 0.7 L (1.0-2.3) Diabetes panel 06/04/18 Range/Units 04:05 Sodium 129 L (133-145) mmol/L Potassium 2.8 L* (3.3-5.1) mmol/L Chloride 93 L (96-108) mmol/L Carbon Dioxide 23 (22-30) mmol/L BUN 35 H (8-23) mg/dl Creatinine 1.0 (0.6-1.1) mg/dl Glucose 121 H (70-105) mg/dL Calcium 8.1 L (8.6-10.4) mg/dl AST 20 (0-37) U/l ALT 13 (0-40) U/l Alkaline Phosphatase 108 (39-117) U/L Total Protein 6.2 (5.9-8.4) gm/dL Albumin 2.5 L (3.2-5.2) gm/dL Triglycerides 75 (<150) mg/dl Calcium panel 06/04/18 Range/Units 04:05 Calcium 8.1 L (8.6-10.4) mg/dl Phosphorus 3.4 (2.7-4.5) mg/dL Albumin 2.5 L (3.2-5.2) gm/dL Pituitary panel 06/04/18 Range/Units 04:05 Sodium 129 L (133-145) mmol/L Potassium 2.8 L* (3.3-5.1) mmol/L Chloride 93 L (96-108) mmol/L Carbon Dioxide 23 (22-30) mmol/L BUN 35 H (8-23) mg/dl Creatinine 1.0 (0.6-1.1) mg/dl Glucose 121 H (70-105) mg/dL Calcium 8.1 L (8.6-10.4) mg/dl Adrenal panel 06/04/18 Range/Units 04:05 Sodium 129 L (133-145) mmol/L Potassium 2.8 L* (3.3-5.1) mmol/L Chloride 93 L (96-108) mmol/L Carbon Dioxide 23 (22-30) mmol/L BUN 35 H (8-23) mg/dl Creatinine 1.0 (0.6-1.1) mg/dl Glucose 121 H (70-105) mg/dL Calcium 8.1 L (8.6-10.4) mg/dl Total Bilirubin 0.5 (0.0-1.0) mg/dL AST 20 (0-37) U/l ALT 13 (0-40) U/l Alkaline Phosphatase 108 (39-117) U/L Total Protein 6.2 (5.9-8.4) gm/dL Albumin 2.5 L (3.2-5.2) gm/dL All other labs normal. Assessment and Plan (1) Abscess of anal and rectal regions The perianal inflammatory lesion is adequately opened and does not need surgical involvement. Local wound care will be needed and this can be continued by the wound care physician and team. Repeat cultures were done for confirmation of the source of the purulence. Antibiotic regimen can be changed when these cultures are available. I will not follow the patient daily but can be reconsulted if this process does not continue to improve.. Status: Acute Priority: Medium Comment: Patient seeds to be examined in supine or lateral position, when she is lying in bed. Reassess later. ?? Perianl absess. Recommend: Local soaks ( Sitz baths ) for now.
--- NOTE | 2018-06-04 16:46 | Internal Med Progress Note ---
Medical - PN: Subj Patient information: Note initiated : 06/04/18 at 4:42 pm Service Date, if different from initiated Date: [] Patient: Nayely Zhao a 88 y/o F admitted on 06/02/18 for bilateral leg wounds. Chief Complaint: f/u wounds Interval history: 06/02 Ms. Zhao is a 88 year old F who is pleasantly demented presents to the emergency room for evaluation of lower extremity swelling ulceration and redness . The patient is confused unable to provide any meaningful history most of the history is from chart review as well as talking to the ED nurse. No family by the bedside. According to the nurse the patient had been having swelling of lower extremities and weeping wounds that has been getting worse the last 4 days, patient has had multiple scratches and is now some redness developing on both the lower extremities. She was therefore sent here for further evaluation. The patient denies any other complaints she denies any headache chest pain shortness of breath cough denies any abdominal pain nausea vomiting diarrhea constipation or any urinary complaints. On presentation the ER the patient was afebrile heart rate 85 blood pressure 128/60 saturation 97% on room air. Labs show elevated WBC count at 22,600, hemoglobin 9.4 platelets 251 lactic acid 0.9, sodium 126 chloride 93 potassium 4.2 bicarbonate 22 glucose 118, creatinine 0.8 BUN 36. BNP pro calcitonin TSH is pending Chest x-ray done shows chronic COPD changes no acute infiltrate noted Patient is being admitted to the hospital with a diagnosis of cellulitis and possible fluid overload 2/ Pt seen examined, no acute issues, low grade fever noted, still has significant edema, gwen lower extremities, but denies any complaints, is lying comfortably in bed, pleasantly confused. 06/04 Seen and examined on rounds, seen with Dr. Vickers. The patient was noted to have a fluctuant area on buttocks, extending towards labia. Initially provided by Dr. Shelby, subsequently seen by Dr. Vickers, perianal abscess which is now drained. Has been cultured. Cultures from leg wounds growing MRSA and gram-negative bacillus.. Patient is without specific complaint. Keeps repeatedly asking what is wrong with her buttock. Legs are improving. Patient denies any dyspnea, abdominal pain or pain associated with her buttock lesion. - Constitutional Vitals: Vital Signs Temp Pulse Resp BP Pulse Ox 97 F 70 14 108/40 90 02/06/19 15:43 06/04/18 15:43 06/04/18 15:43 06/04/18 15:43 06/04/18 15:43 Period Temp Pulse Resp BP Sys/Benedict Pulse Ox Last 24 Hr 97 F-99 F 70-90 12-16 85-108/40-53 90-99 Intake and Output 06/04/18 06/04/18 06/04/18 05:59 13:59 21:59 Intake Total 700 300 850 Output Total 1600 350 Balance -900 -50 850 Intake & Output: Intake & Output 06/04/18 06/04/18 06/04/18 05:59 13:59 21:59 Intake Total 700 300 850 Output Total 1600 350 Balance -900 -50 850 Intake: IV 100 300 50 Zosyn 3.375 gm In Dextrose 5% 100 50 in Water 50 ml @ 100 mls/hr IV Q6H [facility] Rx#:[id number] Vancomycin 1,000 mg In Sodium 250 Chloride 0.9% 250 ml @ 250 mls/ hr IV DAILY [facility] Rx#:[id number] Oral 600 800 Output: Void Amount 1600 350 Other: Urine Appearance Clear Urine Color Pale Pale Urine Odor Normal # Voids 1 Exam: General: In bed in no acute distress Chest: Clear, good respiratory effort Cardiovascular: Regular, no murmur Abdomen: Soft, nontender Skin: Decreased erythema (compared to photos) of bilateral lower extremities. Fluctuant area on the right buttock, draining. Probed by Dr. Vickers, his perianal, does not extend into the perineum or near the labia. Neuro: Alert, oriented to self, repeatedly asking similar questions. Moves all extremities equally. Medical - PN: Obj Da - Labs CBC & Chem 7: 06/04/18 04:05 06/04/18 04:05 Labs: Abnormal Lab Results 06/04/18 06/04/18 06/03/18 04:05 04:05 04:25 WBC 15.6 H RBC 2.60 L Hgb 8.5 L Hct 25.7 L POC Hct Gran % 89.4 H Lymph % (Auto) 3.4 L Gran # 13.9 H Lymph # (Auto) 0.5 L Marinette # (Auto) 1.0 H POC Sodium Sodium 129 L 127 L Potassium 2.8 L* POC Chloride Chloride 93 L 91 L POC BUN BUN 35 H 38 H Glucose 121 H 162 H POC Glucose Calcium 8.1 L 8.4 L POC WB Ioniz Calcium Magnesium 1.4 L NT-Pro-B Natriuret Pep Albumin 2.5 L 2.5 L Albumin/Globulin Ratio 0.7 L 0.7 L Urine Occult Blood Ur Leukocyte Esterase Urine RBC Urine WBC Ur Yeast w Hyphae Urine Yeast (Budding) 06/03/18 06/02/18 06/02/18 04:25 21:55 21:30 WBC 19.7 H RBC 2.76 L Hgb 9.1 L Hct 27.2 L POC Hct Gran % 90.8 H Lymph % (Auto) 2.5 L Gran # 17.9 H Lymph # (Auto) 0.5 L [place] # (Auto) 1.3 H POC Sodium Sodium Potassium POC Chloride Chloride POC BUN BUN Glucose POC Glucose Calcium POC WB Ioniz Calcium Magnesium NT-Pro-B Natriuret Pep 1714.0 H Albumin Albumin/Globulin Ratio Urine Occult Blood 0.2 A Ur Leukocyte Esterase 500 A Urine RBC 12 H Urine WBC 117 H Ur Yeast w Hyphae Few A Urine Yeast (Budding) Mod A 06/02/18 06/02/18 17:28 17:28 WBC 22.6 H RBC 2.87 L Hgb 9.4 L Hct 28.5 L POC Hct 26.0 L Gran % 90.9 H Lymph % (Auto) 3.0 L Gran # 20.6 H Lymph # (Auto) 0.7 L [place]ette # (Auto) 1.3 H POC Sodium 126 L Sodium Potassium POC Chloride 93 L Chloride POC BUN 36 H BUN Glucose POC Glucose 118 H Calcium POC WB Ioniz Calcium 1.12 L Magnesium NT-Pro-B Natriuret Pep Albumin Albumin/Globulin Ratio Urine Occult Blood Ur Leukocyte Esterase Urine RBC Urine WBC Ur Yeast w Hyphae Urine Yeast (Budding) Microbiology 06/02/18 17:40 Gram Stain - Final Leg - Lower Right Wound Culture - Final Methicillin resistant s.aureus Gram negative bacillus 06/02/18 21:55 Urine Culture - Final Urine - Catheterized Bell albicans 06/02/18 19:07 Blood Culture - Preliminary Blood 06/02/18 19:14 Blood Culture - Preliminary Blood Meds: Medications Acetaminophen (Tylenol) 650 mg PO Q6HP PRN PRN Reason: PAIN/FEVER > 101 Hydrocodone Bitart/Acetaminophen (Goessel 10/325mg) 1 tab PO Q6HP PRN PRN Reason: Pain Aspirin (Aspirin) 162 mg PO DAILY [facility] Last Admin: 06/04/18 11:17 Dose: 162 mg Documented by: Cyanocobalamin (Vitamin B-12) 2,500 mcg PO HS [facility] Last Admin: 06/03/18 20:11 Dose: 2,500 mcg Documented by: Dextrose (Dextrose 50%) 0 ml IV UD PRN PRN Reason: Hypoglycemia Diagnostic Test (Pha) (Accu-Chek) 1 each FS [facility] Last Admin: 06/04/18 16:25 Dose: 1 each Documented by: Glucose (Insta-Glucose) 15 gm PO PRN PRN PRN Reason: Hypoglycemia Heparin Sodium (Porcine) (Heparin) 5,000 unit SQ Q12 [facility] Last Admin: 06/04/18 11:18 Dose: 5,000 unit Documented by: Hydromorphone HCl (Dilaudid) 0.5 mg IV Q2HP PRN PRN Reason: PAIN LEVEL > 6 Piperacillin Sod/Tazobactam (Sod 3.375 gm/ Dextrose) 50 mls @ 100 mls/hr IV Q6H [facility] Last Infusion: 06/04/18 14:44 Dose: Infused Documented by: Vancomycin HCl 1,000 mg/ (Sodium Chloride) 250 mls @ 250 mls/hr IV DAILY [facility] Last Infusion: 06/04/18 11:20 Dose: Infused Documented by: Insulin Human Lispro (Humalog) 0 unit SQ [facility]; Protocol Last Admin: 06/04/18 16:26 Dose: Not Given Documented by: Lisinopril (Zestril) 5 mg PO DAILY [facility] Last Admin: 06/04/18 11:19 Dose: Not Given Documented by: Naloxone HCl (Narcan) 0.1 mg IV Q2MIN PRN PRN Reason: Opiate Reversal Ondansetron HCl (Zofran) 4 mg IV Q6HP PRN PRN Reason: Nausea And Vomiting Sodium Chloride (Saline Flush) 10 ml IV Q8 [facility] Last Admin: 06/04/18 14:44 Dose: 10 ml Documented by: Sodium Chloride (Sodium Chloride) 1 gm PO TID [facility] Last Admin: 06/04/18 14:44 Dose: 1 gm Documented by: Vancomycin HCl (Vancomycin Per Pharmacy) 1 order IV UD [facility] Verapamil HCl (Calan Sr) 120 mg PO DAILY [facility] Last Admin: 06/04/18 11:18 Dose: Not Given Documented by: Medical - PN: A/P (1) Volume overload Status: Acute Current Visit: Yes (2) Cellulitis of leg Status: Acute Current Visit: Yes (3) Diabetes mellitus, type II Problem details: 2004 Dr. Almanza made diagnosis Status: Chronic Current Visit: No - Narrative A/P Narrative: A/P Fluid overload -Initially improved after diuresis, diuretic now held due to soft blood pressures -Hold furosemide, monitor -pt does not wish for a gomez, bladder scan qid to rule out retention Cellulitis of bilateral legs and feet -MRSA and gram-negative rods on culture -Continue with IV vanco, dose based on levels; continue with Zosyn, narrow once pathogen known -Continue his topical wound care Buttock/perianal abscess -Spontaneously drained, cultures sent -Wound care, follow-up culture, continue antibiotics as above Atrial fibrillation -not on anticoagulation, on verapamil, resume same, rate controlled Dementia -high risk fo delirium, resume home meds Hyponatremia sodium low 127, slowly improving, continue salt tablets Type 2 diabetes mellitus SSI insulin for glucose control DVT hep sq Diet regular Full code
[2018-06-04] MEDS: CYANOCOBALAMIN (VITAMIN B-12) 500 MCG TABLET PO SCH (22:14)
[2018-06-05] MEDS: PIPERACILLIN SODIUM/TAZOBACTAM 3.375 GM in DEXTROSE 5% IN WATER 50 ML IV SCH ×3 (05:27→17:35)
[2018-06-05] MEDS: 0.9 % SODIUM CHLORIDE 10 ML SYRINGE IV SCH ×3 (05:27→22:23)
[2018-06-05 06:24] LABS: Basophils # (Auto) 0 K/mcL (0.0-0.3); Basophils % (Auto) 0.2 % (0.0-2.0); Eosinophils # (Auto) 0.1 K/mcL (0.0-0.7); Eosinophils % (Auto) 1.3 % (0.0-7.0); Granulocytes % (Auto) 82.9 % (38.0-78.0); Lymphocytes # (Auto) 0.6 K/mcL (1.5-4.8); Lymphocytes % (Auto) 6.4 % (15.5-49.0); Mean Cell Volume 98.4 fL (80.0-100.0); Monocytes # (Auto) 0.9 K/mcL (0.1-0.9); Monocytes % (Auto) 9.2 % (1.0-12.0); Platelet Count 257 K/mcL (140-440); RBC 2.67 M/mcL (4.00-5.20)
[2018-06-05 06:41] LABS: ALT/SGPT 28 U/l (0-40); Albumin 2.5 gm/dL (3.2-5.2); Albumin/Globulin Ratio 0.7 (1.0-2.3); Alkaline Phosphatase 135 U/L (39-117); Bilirubin,Direct < 0.2 mg/dL (0.0-0.3); Blood Urea Nitrogen 29 mg/dl (8-23); Gamma Glutamyl Transpeptidase 27 U/L (5-36); Uric Acid 5.5 mg/dL (2.5-8.0)
[2018-06-05] MEDS: INSULIN LISPRO 1 UNIT/0.01 ML UNIT SQ SCH ×4 (07:44→22:21)
[2018-06-05] MEDS: POTASSIUM CHLORIDE 20 MEQ PACKET PO SCH ×2 (09:34→11:47)
[2018-06-05] MEDS: ASPIRIN 81 MG TAB.CHEW PO SCH (09:35)
[2018-06-05] MEDS: LISINOPRIL 5 MG TABLET PO SCH (09:35)
[2018-06-05] MEDS: SODIUM CHLORIDE 1 GM TABLET PO SCH ×3 (09:35→22:21)
[2018-06-05] MEDS: HEPARIN 5,000 UNIT/ML VIAL SQ SCH ×2 (09:35→22:22)
[2018-06-05] MEDS: VERAPAMIL 120 MG TAB.XL.24H PO SCH (09:35)
[2018-06-05] MEDS: VANCOMYCIN 1,000 MG in 0.9 % SODIUM CHLORIDE 250 ML IV SCH (10:26)
--- NOTE | 2018-06-05 18:26 | General Surgery Progress Note ---
Subjective Narrative: Note initiated : 06/05/18 at 6:22 pm Service Date, if different from initiated Date: [] Patient: Nayely Zhao 88 y/o F admitted on 06/02/18 for bilateral leg wounds. Chief Complaint: [] I saw this patient along with eLonor RN, wound care nurse and Sarah RN. There are no acute interval changes in his general physical examination. She is alert lucid and answers questions appropriately. Objective Temp Pulse Resp BP Pulse Ox 98.8 F 82 18 107/61 96 06/05/18 16:00 06/05/18 16:00 06/05/18 16:00 06/05/18 16:00 06/05/18 16:00 No fever. Vital signs are stable. No acute interval changes in general physical examination. White count is trending down. Other lab results are unremarkable for acute abnormalities. Local examination: Improving dermatitis of both legs. Edema has resolved. No evidence of acute spreading cellulitis. Superficial epidermal ulcers are dry. Fungal dermatitis is improved with local wound care and topical antifungal cream application. Right posterior sonia anal skin abscess site was digitally explored. Careful select to debridement of the eschar was carried out at bedside with #3 curette. The subcutaneous edema has resolved significantly. - Additional Data Intake & Output - Last 24 hours: Intake & Output 06/03/18 06/04/18 06/05/18 06/06/18 05:59 05:59 05:59 05:59 Intake Total 725 1900 2820 1800 Output Total 600 2650 1050 1275 Balance 125 -750 1770 525 Weight 179 lb 8 oz 178 lb 8 oz 175 lb - Labs 06/05/18 04:00 06/05/18 04:00 Diabetes panel 06/05/18 Range/Units 04:00 Sodium 132 L (133-145) mmol/L Potassium 3.1 L (3.3-5.1) mmol/L Chloride 96 (96-108) mmol/L Carbon Dioxide 24 (22-30) mmol/L BUN 29 H (8-23) mg/dl Creatinine 1.0 (0.6-1.1) mg/dl Glucose 130 H (70-105) mg/dL Calcium 8.1 L (8.6-10.4) mg/dl AST 40 H (0-37) U/l ALT 28 (0-40) U/l Alkaline Phosphatase 135 H (39-117) U/L Total Protein 6.1 (5.9-8.4) gm/dL Albumin 2.5 L (3.2-5.2) gm/dL Triglycerides 79 (<150) mg/dl Calcium panel 06/05/18 Range/Units 04:00 Calcium 8.1 L (8.6-10.4) mg/dl Phosphorus 2.8 (2.7-4.5) mg/dL Albumin 2.5 L (3.2-5.2) gm/dL Pituitary panel 06/05/18 Range/Units 04:00 Sodium 132 L (133-145) mmol/L Potassium 3.1 L (3.3-5.1) mmol/L Chloride 96 (96-108) mmol/L Carbon Dioxide 24 (22-30) mmol/L BUN 29 H (8-23) mg/dl Creatinine 1.0 (0.6-1.1) mg/dl Glucose 130 H (70-105) mg/dL Calcium 8.1 L (8.6-10.4) mg/dl Adrenal panel 06/05/18 Range/Units 04:00 Sodium 132 L (133-145) mmol/L Potassium 3.1 L (3.3-5.1) mmol/L Chloride 96 (96-108) mmol/L Carbon Dioxide 24 (22-30) mmol/L BUN 29 H (8-23) mg/dl Creatinine 1.0 (0.6-1.1) mg/dl Glucose 130 H (70-105) mg/dL Calcium 8.1 L (8.6-10.4) mg/dl Total Bilirubin 0.4 (0.0-1.0) mg/dL AST 40 H (0-37) U/l ALT 28 (0-40) U/l Alkaline Phosphatase 135 H (39-117) U/L Total Protein 6.1 (5.9-8.4) gm/dL Albumin 2.5 L (3.2-5.2) gm/dL Assessment and Plan (1) Venous stasis ulcer Status: Chronic Current Visit: Yes (2) Abscess of anal and rectal regions Problem details: Patient seeds to be examined in supine or lateral position, when she is lying in bed. Reassess later. ?? Perianl absess. Recommend: Local soaks ( Sitz baths ) for now. 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 Responding to treatment. Plan: Continue present treatment. Assessment: Right posterior perianal abscess. Needs evaluation by general surgery for proctoscopy and further debridement as indicated. Plan: Continue wound care and sitz baths. General surgery consult for Dr. Faustino Vickers. Current Visit: Yes - Narrative A/P Narrative: Assessment: Satisfactory progress from the wound care point of view. Appreciate general surgery consult from Dr. Faustino Vickers MD Plan: Continue current treatment. - Time Spent With Patient Total time spent is greater than 50% in coordination of care (as documented) at patient's floor/unit and/or counseling patient:
--- NOTE | 2018-06-05 20:37 | Internal Med Progress Note ---
Medical - PN: Subj Patient information: Note initiated : 06/05/18 at 8:35 pm Service Date, if different from initiated Date: [] Patient: Nayely Zhao a 88 y/o F admitted on 06/02/18 for bilateral leg wounds. Chief Complaint: f/u cellulitis Interval history: 06/02 Ms. Zhao is a 88 year old F who is pleasantly demented presents to the emergency room for evaluation of lower extremity swelling ulceration and red ness. The patient is confused unable to provide any meaningful history most of the history is from chart review as well as talking to the ED nurse. No family by the bedside. According to the nurse the patient had been having swelling of lower extremities and weeping wounds that has been getting worse the last 4 days, patient has had multiple scratches and is now some redness developing on both the lower extremities. She was therefore sent here for further evaluation. The patient denies any other complaints she denies any headache chest pain shortness of breath cough denies any abdominal pain nausea vomiting diarrhea constipation or any urinary complaints. On presentation the ER the patient was afebrile heart rate 85 blood pressure 128/60 saturation 97% on room air. Labs show elevated WBC count at 22,600, hemoglobin 9.4 platelets 251 lactic acid 0.9, sodium 126 chloride 93 potassium 4.2 bicarbonate 22 glucose 118, creatinine 0.8 BUN 36. BNP pro calcitonin TSH is pending Chest x-ray done shows chronic COPD changes no acute infiltrate noted Patient is being admitted to the hospital with a diagnosis of cellulitis and possible fluid overload 2/ Pt seen examined, no acute issues, low grade fever noted, still has significant edema, gwen lower extremities, but denies any complaints, is lying comfortably in bed, pleasantly confused. 2 Seen and examined on rounds, seen with Dr. Vickers. The patient was noted to have a fluctuant area on buttocks, extending towards labia. Initially provided by Dr. Shelby, subsequently seen by Dr. Vickers, perianal abscess which is now drained. Has been cultured. Cultures from leg wounds growing MRSA and gram-negative bacillus.. Patient is without specific complaint. Keeps repeatedly asking what is wrong with her buttock. Legs are improving. Patient denies any dyspnea, abdominal pain or pain associated with her buttock lesion. 2/7 Legs continue to improve. Leg wound cultures with MRSA and gram-negative bacilli. Therefore species of gram-negative bacilli, suspect they were pathogenic. Lab will plate those out for ID and sensitivity. Being seen by wound care. Gram-positive cocci on perianal abscess culture. - Constitutional Vitals: Vital Signs Temp Pulse Resp BP Pulse Ox 98.4 F 54 L 18 136/60 100 06/05/18 20:00 06/05/18 20:00 06/05/18 20:00 06/05/18 20:00 06/05/18 20:00 Period Temp Pulse Resp BP Sys/Benedict Pulse Ox Last 24 Hr 97.0 F-98.8 F 54-86 18-24 98-136/60-69 96-100 Intake and Output 06/05/18 06/05/18 06/05/18 05:59 13:59 21:59 Intake Total 3530 299 0574 Output Total 250 625 750 Balance 970 -225 650 Intake & Output: Intake & Output 06/05/18 06/05/18 06/05/18 05:59 13:59 21:59 Intake Total 1083 594 4036 Output Total 250 625 750 Balance 970 -225 650 Intake: IV 100 300 Zosyn 3.375 gm In Dextrose 5% 100 50 in Water 50 ml @ 100 mls/hr IV Q6H [facility] Rx#:[id number] Vancomycin 1,000 mg In Sodium 250 Chloride 0.9% 250 ml @ 250 mls/ hr IV DAILY [facility] Rx#:[id number] Oral [id number] Output: Void Amount 250 225 750 Urine/Stool Mix 400 Other: Meal Dinner Percent of Meal Consumed 75% Urine Appearance Cloudy Cloudy Urine Color Light Lola Straw Urine Odor Normal Stool Size Small Smear Stool Color Brown Stool Consistency Soft # Voids 1 # Bowel Movements 1 Exam: General: Embedment distress Chest: Clear, unlabored Cardiorespiratory: Regular Abdomen: Soft, nontender Skin: Bilateral legs with decreased erythema, decreased edema. Neuro: Alert, oriented to self, asking the same questions, poor short-term memory Medical - PN: Obj Da - Labs CBC & Chem 7: 06/05/18 04:00 06/05/18 04:00 Labs: Abnormal Lab Results 06/05/18 06/05/18 06/04/18 04:00 04:00 04:05 WBC RBC 2.67 L Hgb 8.7 L Hct 26.2 L Gran % 82.9 H Lymph % (Auto) 6.4 L Gran # 8.3 H Lymph # (Auto) 0.6 L [place] # (Auto) Sodium 132 L 129 L Potassium 3.1 L 2.8 L* Chloride 93 L BUN 29 H 35 H Glucose 130 H 121 H Calcium 8.1 L 8.1 L Magnesium 1.4 L AST 40 H Alkaline Phosphatase 135 H NT-Pro-B Natriuret Pep Albumin 2.5 L 2.5 L Albumin/Globulin Ratio 0.7 L 0.7 L Urine Occult Blood Ur Leukocyte Esterase Urine RBC Urine WBC Ur Yeast w Hyphae Urine Yeast (Budding) 06/04/18 06/03/18 06/03/18 04:05 04:25 04:25 WBC 15.6 H 19.7 H RBC 2.60 L 2.76 L Hgb 8.5 L 9.1 L Hct 25.7 L 27.2 L Gran % 89.4 H 90.8 H Lymph % (Auto) 3.4 L 2.5 L Gran # 13.9 H 17.9 H Lymph # (Auto) 0.5 L 0.5 L [place] # (Auto) 1.0 H 1.3 H Sodium 127 L Potassium Chloride 91 L BUN 38 H Glucose 162 H Calcium 8.4 L Magnesium AST Alkaline Phosphatase NT-Pro-B Natriuret Pep Albumin 2.5 L Albumin/Globulin Ratio 0.7 L Urine Occult Blood Ur Leukocyte Esterase Urine RBC Urine WBC Ur Yeast w Hyphae Urine Yeast (Budding) 06/02/18 06/02/18 21:55 21:30 WBC RBC Hgb Hct Gran % Lymph % (Auto) Gran # Lymph # (Auto) [place] # (Auto) Sodium Potassium Chloride BUN Glucose Calcium Magnesium AST Alkaline Phosphatase NT-Pro-B Natriuret Pep 1714.0 H Albumin Albumin/Globulin Ratio Urine Occult Blood 0.2 A Ur Leukocyte Esterase 500 A Urine RBC 12 H Urine WBC 117 H Ur Yeast w Hyphae Few A Urine Yeast (Budding) Mod A Microbiology 06/02/18 19:07 Blood Culture - Preliminary Blood 06/02/18 19:14 Blood Culture - Preliminary Blood 06/04/18 16:20 Gram Stain - Final Perirectal Abscess Culture - Preliminary Staphylococcus aureus Meds: Medications Acetaminophen (Tylenol) 650 mg PO Q6HP PRN PRN Reason: PAIN/FEVER > 101 Hydrocodone Bitart/Acetaminophen ([place] 10/325mg) 1 tab PO Q6HP PRN PRN Reason: Pain Aspirin (Aspirin) 162 mg PO DAILY [facility] Last Admin: 06/05/18 09:35 Dose: 162 mg Documented by: Cyanocobalamin (Vitamin B-12) 2,500 mcg PO HS [facility] Last Admin: 06/04/18 22:14 Dose: 2,500 mcg Documented by: Dextrose (Dextrose 50%) 0 ml IV UD PRN PRN Reason: Hypoglycemia Diagnostic Test (Pha) (Accu-Chek) 1 each FS [facility] Last Admin: 06/05/18 16:43 Dose: 1 each Documented by: Glucose (Insta-Glucose) 15 gm PO PRN PRN PRN Reason: Hypoglycemia Heparin Sodium (Porcine) (Heparin) 5,000 unit SQ Q12 [facility] Last Admin: 06/05/18 09:35 Dose: 5,000 unit Documented by: Hydromorphone HCl (Dilaudid) 0.5 mg IV Q2HP PRN PRN Reason: PAIN LEVEL > 6 Piperacillin Sod/Tazobactam (Sod 3.375 gm/ Dextrose) 50 mls @ 100 mls/hr IV Q6H [facility] Last Admin: 06/05/18 17:35 Dose: 100 mls/hr Documented by: Vancomycin HCl 1,000 mg/ (Sodium Chloride) 250 mls @ 250 mls/hr IV DAILY [facility] Last Infusion: 06/05/18 11:30 Dose: Infused Documented by: Insulin Human Lispro (Humalog) 0 unit SQ [facility]; Protocol Last Admin: 06/05/18 17:07 Dose: 1 units Documented by: Lisinopril (Zestril) 5 mg PO DAILY [facility] Last Admin: 06/05/18 09:35 Dose: 5 mg Documented by: Naloxone HCl (Narcan) 0.1 mg IV Q2MIN PRN PRN Reason: Opiate Reversal Ondansetron HCl (Zofran) 4 mg IV Q6HP PRN PRN Reason: Nausea And Vomiting Sodium Chloride (Saline Flush) 10 ml IV Q8 [facility] Last Admin: 06/05/18 13:19 Dose: 10 ml Documented by: Sodium Chloride (Sodium Chloride) 1 gm PO TID [facility] Last Admin: 06/05/18 14:24 Dose: 1 gm Documented by: Vancomycin HCl (Vancomycin Per Pharmacy) 1 order IV UD [facility] Verapamil HCl (Calan Sr) 120 mg PO DAILY [facility] Last Admin: 06/05/18 09:35 Dose: 120 mg Documented by: Medical - PN: A/P (1) Volume overload Status: Acute Current Visit: Yes (2) Cellulitis of leg Status: Acute Current Visit: Yes (3) Diabetes mellitus, type II Problem details: 2004 Dr. Almanza made diagnosis Status: Chronic Current Visit: No - Narrative A/P Narrative: A/P Fluid overload -Initially improved after diuresis, diuretic now held due to soft blood pressures -Hold furosemide, monitor -pt does not wish for a Cardona, bladder scan qid to rule out retention Cellulitis of bilateral legs and feet -MRSA and gram-negative rods on culture -Continue with IV vanco, dose based on levels; continue with Zosyn, narrow once pathogens known -Continue his topical wound care Buttock/perianal abscess -Spontaneously drained, cultures sent -Wound care, follow-up culture, continue antibiotics as above Atrial fibrillation -not on anticoagulation, on verapamil, resume same, rate controlled Dementia -high risk fo delirium, resume home meds Hyponatremia sodium low 127, slowly improving, continue salt tablets Type 2 diabetes mellitus SSI insulin for glucose control DVT hep sq Diet regular Full code
[2018-06-05] MEDS: CYANOCOBALAMIN (VITAMIN B-12) 500 MCG TABLET PO SCH (22:21)
[2018-06-06] MEDS: PIPERACILLIN SODIUM/TAZOBACTAM 3.375 GM in DEXTROSE 5% IN WATER 50 ML IV SCH ×4 (00:26→17:08)
[2018-06-06] MEDS: 0.9 % SODIUM CHLORIDE 10 ML SYRINGE IV SCH ×3 (05:21→22:38)
[2018-06-06 06:10] LABS: Basophils # (Auto) 0 K/mcL (0.0-0.3); Basophils % (Auto) 0.1 % (0.0-2.0); Eosinophils # (Auto) 0.1 K/mcL (0.0-0.7); Eosinophils % (Auto) 1.6 % (0.0-7.0); Lymphocytes # (Auto) 0.7 K/mcL (1.5-4.8); Lymphocytes % (Auto) 8.4 % (15.5-49.0); Mean Cell Volume 97.7 fL (80.0-100.0); Mean Corpuscular HGB Conc 34.3 g/dL (31.0-36.0); Monocytes # (Auto) 0.9 K/mcL (0.1-0.9); Monocytes % (Auto) 9.9 % (1.0-12.0); Platelet Count 261 K/mcL (140-440); RBC 2.53 M/mcL (4.00-5.20); Red Cell Distribution Width 13.2 % (11.5-14.5)
[2018-06-06 06:45] LABS: ALT/SGPT 25 U/l (0-40); Albumin 2.4 gm/dL (3.2-5.2); Albumin/Globulin Ratio 0.6 (1.0-2.3); Alkaline Phosphatase 94 U/L (39-117); Bilirubin,Direct < 0.2 mg/dL (0.0-0.3); Blood Urea Nitrogen 25 mg/dl (8-23); Gamma Glutamyl Transpeptidase 31 U/L (5-36); Uric Acid 3.9 mg/dL (2.5-8.0)
[2018-06-06] MEDS: INSULIN LISPRO 1 UNIT/0.01 ML UNIT SQ SCH ×4 (08:13→23:19)
[2018-06-06] MEDS: VANCOMYCIN 1,000 MG in 0.9 % SODIUM CHLORIDE 250 ML IV SCH (10:24)
[2018-06-06] MEDS: SODIUM CHLORIDE 1 GM TABLET PO SCH ×3 (10:25→22:37)
[2018-06-06] MEDS: NEUTRA PHOS 1 PACKET PO SCH ×2 (10:25→22:38)
[2018-06-06] MEDS: ASPIRIN 81 MG TAB.CHEW PO SCH (10:25)
[2018-06-06] MEDS: VERAPAMIL 120 MG TAB.XL.24H PO SCH (10:25)
[2018-06-06] MEDS: LISINOPRIL 5 MG TABLET PO SCH (10:26)
[2018-06-06] MEDS: HEPARIN 5,000 UNIT/ML VIAL SQ SCH ×2 (10:26→22:37)
--- NOTE | 2018-06-06 14:03 | General Surgery Progress Note ---
Subjective Narrative: Note initiated : 06/06/18 at 2:01 pm Service Date, if different from initiated Date: [] Patient: Nayely Zhao 88 y/o F admitted on 06/02/18 for bilateral leg wounds. Chief Complaint: [] PATIENT SEEN AND PROGRESS REVIEWED. Objective Temp Pulse Resp BP Pulse Ox 97.1 F 60 20 124/58 91 06/06/18 12:00 06/06/18 04:00 06/06/18 12:00 06/06/18 12:00 06/06/18 12:00 AVSS. NO acute changes in DILAN or wound care / dressings. Undergoing Physical Therapy. Awaits D/C or transfer to rehab facility. - Additional Data Intake & Output - Last 24 hours: Intake & Output 06/04/18 06/05/18 06/06/18 06/07/18 05:59 05:59 05:59 05:59 Intake Total 1900 2820 1900 50 Output Total 2650 1050 2300 Balance -750 1770 -400 50 Weight 178 lb 8 oz 175 lb 165 lb 165 lb - Labs 06/06/18 04:15 06/06/18 04:15 Diabetes panel 06/06/18 Range/Units 04:15 Sodium 133 (133-145) mmol/L Potassium 4.2 (3.3-5.1) mmol/L Chloride 103 (96-108) mmol/L Carbon Dioxide 24 (22-30) mmol/L BUN 25 H (8-23) mg/dl Creatinine 0.8 (0.6-1.1) mg/dl Glucose 115 H (70-105) mg/dL Calcium 8.3 L (8.6-10.4) mg/dl AST 29 (0-37) U/l ALT 25 (0-40) U/l Alkaline Phosphatase 94 (39-117) U/L Total Protein 6.1 (5.9-8.4) gm/dL Albumin 2.4 L (3.2-5.2) gm/dL Triglycerides 75 (<150) mg/dl Calcium panel 06/06/18 Range/Units 04:15 Calcium 8.3 L (8.6-10.4) mg/dl Phosphorus 2.6 L (2.7-4.5) mg/dL Albumin 2.4 L (3.2-5.2) gm/dL Pituitary panel 06/06/18 Range/Units 04:15 Sodium 133 (133-145) mmol/L Potassium 4.2 (3.3-5.1) mmol/L Chloride 103 (96-108) mmol/L Carbon Dioxide 24 (22-30) mmol/L BUN 25 H (8-23) mg/dl Creatinine 0.8 (0.6-1.1) mg/dl Glucose 115 H (70-105) mg/dL Calcium 8.3 L (8.6-10.4) mg/dl Adrenal panel 06/06/18 Range/Units 04:15 Sodium 133 (133-145) mmol/L Potassium 4.2 (3.3-5.1) mmol/L Chloride 103 (96-108) mmol/L Carbon Dioxide 24 (22-30) mmol/L BUN 25 H (8-23) mg/dl Creatinine 0.8 (0.6-1.1) mg/dl Glucose 115 H (70-105) mg/dL Calcium 8.3 L (8.6-10.4) mg/dl Total Bilirubin 0.4 (0.0-1.0) mg/dL AST 29 (0-37) U/l ALT 25 (0-40) U/l Alkaline Phosphatase 94 (39-117) U/L Total Protein 6.1 (5.9-8.4) gm/dL Albumin 2.4 L (3.2-5.2) gm/dL Assessment and Plan (1) Venous stasis ulcer Status: Chronic Current Visit: Yes (2) Abscess of anal and rectal regions Problem details: Patient seeds to be examined in supine or lateral position, when she is lying in bed. Reassess later. ?? Perianl absess. Recommend: Local soaks ( Sitz baths ) for now. 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 Responding to treatment. Plan: Continue present treatment. Assessment: Right posterior perianal abscess. Needs evaluation by general surgery for proctoscopy and further debridement as indicated. Plan: Continue wound care and sitz baths. General surgery consult for Dr. Faustino Vickers. Current Visit: Yes - Narrative A/P Narrative: Assessment: Satisfactory progress. Plan: Continue current treatment. - Time Spent With Patient Total time spent is greater than 50% in coordination of care (as documented) at patient's floor/unit and/or counseling patient:
--- NOTE | 2018-06-06 14:27 | Internal Med Progress Note ---
Medical - PN: Subj Patient information: Note initiated : 06/06/18 at 2:27 pm Service Date, if different from initiated Date: [] Patient: Nayely Zhao a 88 y/o F admitted on 06/02/18 for bilateral leg wounds. Chief Complaint: [] Interval history: 06/02 Ms. Zhao is a 88 year old F who is pleasantly demented presents to the emergency room for evaluation of lower extremity swelling ulceration and redness. The patient is confused unable to provide any meaningful history most of the history is from chart review as well as talking to the ED nurse. No family by the bedside. According to the nurse the patient had been having swelling of lower extremities and weeping wounds that has been getting worse the last 4 days, patient has had multiple scratches and is now some redness developing on both the lower ex tremities. She was therefore sent here for further evaluation. The patient denies any other complaints she denies any headache chest pain shortness of breath cough denies any abdominal pain nausea vomiting diarrhea constipation or any urinary complaints. On presentation the ER the patient was afebrile heart rate 85 blood pressure 128/60 saturation 97% on room air. Labs show elevated WBC count at 22,600, hemoglobin 9.4 platelets 251 lactic acid 0.9, sodium 126 chloride 93 potassium 4.2 bicarbonate 22 glucose 118, creatinine 0.8 BUN 36. BNP pro calcitonin TSH is pending Chest x-ray done shows chronic COPD changes no acute infiltrate noted Patient is being admitted to the hospital with a diagnosis of cellulitis and possible fluid overload 2/ Pt seen examined, no acute issues, low grade fever noted, still has significant edema, gwen lower extremities, but denies any complaints, is lying comfortably in bed, pleasantly confused. 2 Seen and examined on rounds, seen with Dr. Vickers. The patient was noted to have a fluctuant area on buttocks, extending towards labia. Initially provided by Dr. Shelby, subsequently seen by Dr. Vickers, perianal abscess which is now drained. Has been cultured. Cultures from leg wounds growing MRSA and gram-negative bacillus.. Patient is without specific complaint. Keeps repeatedly asking what is wrong with her buttock. Legs are improving. Patient denies any dyspnea, abdominal pain or pain associated with her buttock lesion. 2/ Legs continue to improve. Leg wound cultures with MRSA and gram-negative bacilli. Therefore species of gram-negative bacilli, suspect they were pathogenic. Lab will plate those out for ID and sensitivity. Being seen by wound care. Gram-positive cocci on perianal abscess culture. 06/06-patient doing well. In good spirits. No shortness of breath fever or chills or concerns per staff. Citrobacter/MRSA on cultures. Continuing wound care/antibiotics including vancomycin/Zosyn. Continue treatment/rehab andnutrition support - Constitutional Vitals: Vital Signs Temp Pulse Resp BP Pulse Ox 97.1 F 60 20 124/58 91 06/06/18 12:00 06/06/18 04:00 06/06/18 12:00 06/06/18 12:00 06/06/18 12:00 Period Temp Pulse Resp BP Sys/Benedict Pulse Ox Last 24 Hr 97.1 F-98.8 F 54-82 16-20 107-136/58-61 91-100 Intake and Output 06/06/18 06/06/18 06/06/18 05:59 13:59 21:59 Intake Total 100 50 Output Total 775 Balance -675 50 Weight 165 lb Patient Weight 06/07/18 05:59 Weight 165 lb Intake & Output: Intake & Output 06/06/18 06/06/18 06/06/18 05:59 13:59 21:59 Intake Total 100 50 Output Total 775 Balance -675 50 Weight 165 lb Intake: IV 100 50 Zosyn 3.375 gm In Dextrose 5% 100 50 in Water 50 ml @ 100 mls/hr IV Q6H [facility] Rx#:[id number] Output: Urine Catheter Amount 600 Void Amount 175 Other: Urine Appearance Clear Cloudy Sediment Urine Color Dark Yellow Urine Odor Normal Stool Size Small Stool Color Brown Stool Consistency Formed Loose # Voids 1 General appearance: cooperative, no acute distress Exam: Alert Nonlabored breathing No anxiety Nondistended abdomen Medical - PN: Obj Da - Labs CBC & Chem 7: 06/06/18 04:15 06/06/18 04:15 Labs: Abnormal Lab Results 06/06/18 06/06/18 06/05/18 04:15 04:15 04:00 WBC RBC 2.53 L Hgb 8.5 L Hct 24.8 L Gran % 80.0 H Lymph % (Auto) 8.4 L Gran # Lymph # (Auto) 0.7 L [place] # (Auto) Sodium 132 L Potassium 3.1 L Chloride Anion Gap 6.0 L BUN 25 H 29 H Glucose 115 H 130 H Calcium 8.3 L 8.1 L Phosphorus 2.6 L Magnesium AST 40 H Alkaline Phosphatase 135 H Albumin 2.4 L 2.5 L Albumin/Globulin Ratio 0.6 L 0.7 L 06/05/18 06/04/18 06/04/18 04:00 04:05 04:05 WBC 15.6 H RBC 2.67 L 2.60 L Hgb 8.7 L 8.5 L Hct 26.2 L 25.7 L Gran % 82.9 H 89.4 H Lymph % (Auto) 6.4 L 3.4 L Gran # 8.3 H 13.9 H Lymph # (Auto) 0.6 L 0.5 L [place] # (Auto) 1.0 H Sodium 129 L Potassium 2.8 L* Chloride 93 L Anion Gap BUN 35 H Glucose 121 H Calcium 8.1 L Phosphorus Magnesium 1.4 L AST Alkaline Phosphatase Albumin 2.5 L Albumin/Globulin Ratio 0.7 L Meds: Medications Acetaminophen (Tylenol) 650 mg PO Q6HP PRN PRN Reason: PAIN/FEVER > 101 Hydrocodone Bitart/Acetaminophen ([place] 10/325mg) 1 tab PO Q6HP PRN PRN Reason: Pain Aspirin (Aspirin) 162 mg PO DAILY [facility] Last Admin: 06/06/18 10:25 Dose: 162 mg Documented by: Cyanocobalamin (Vitamin B-12) 2,500 mcg PO HS [facility] Last Admin: 06/05/18 22:21 Dose: 2,500 mcg Documented by: Dextrose (Dextrose 50%) 0 ml IV UD PRN PRN Reason: Hypoglycemia Diagnostic Test (Pha) (Accu-Chek) 1 each FS ACHS [facility] Last Admin: 06/06/18 12:18 Dose: 1 each Documented by: Glucose (Insta-Glucose) 15 gm PO PRN PRN PRN Reason: Hypoglycemia Heparin Sodium (Porcine) (Heparin) 5,000 unit SQ Q12 [facility] Last Admin: 06/06/18 10:26 Dose: 5,000 unit Documented by: Hydromorphone HCl (Dilaudid) 0.5 mg IV Q2HP PRN PRN Reason: PAIN LEVEL > 6 Piperacillin Sod/Tazobactam (Sod 3.375 gm/ Dextrose) 50 mls @ 100 mls/hr IV Q6H [facility] Last Infusion: 06/06/18 10:26 Dose: Infused Documented by: Vancomycin HCl 1,000 mg/ (Sodium Chloride) 250 mls @ 250 mls/hr IV DAILY [facility] Last Admin: 06/06/18 10:24 Dose: 250 mls/hr Documented by: Insulin Human Lispro (Humalog) 0 unit SQ [facility]; Protocol Last Admin: 06/06/18 12:19 Dose: 1 units Documented by: Lisinopril (Zestril) 5 mg PO DAILY [facility] Last Admin: 06/06/18 10:26 Dose: 5 mg Documented by: Naloxone HCl (Narcan) 0.1 mg IV Q2MIN PRN PRN Reason: Opiate Reversal Ondansetron HCl (Zofran) 4 mg IV Q6HP PRN PRN Reason: Nausea And Vomiting Potassium/Phosphorus/Sodium (Neutra Phos) 1 packet PO BID [facility] Stop: 06/06/18 21:01 Last Admin: 06/06/18 10:25 Dose: 1 packet Documented by: Sodium Chloride (Saline Flush) 10 ml IV Q8 [facility] Last Admin: 06/06/18 05:21 Dose: 10 ml Documented by: Sodium Chloride (Sodium Chloride) 1 gm PO TID [facility] Last Admin: 06/06/18 10:25 Dose: 1 gm Documented by: Vancomycin HCl (Vancomycin Per Pharmacy) 1 order IV UD [facility] Verapamil HCl (Calan Sr) 120 mg PO DAILY [facility] Last Admin: 06/06/18 10:25 Dose: 120 mg Documented by: Medical - PN: A/P - Time Spent With Patient Total time spent is greater than 50% in coordination of care (as documented) at patient's floor/unit and/or counseling patient: 25 - 35 minutes (1) Abscess of anal and rectal regions Status: Acute Assessment and plan: * Buttock/perianal abscess-Spontaneously drained, cultures MRSA Continue vancomycin. Continue Wound care * Cellulitis of bilateral legs and feet,MRSA and Citrobacter. Continue Zosyn/vancomycin. Continue wound care * Fluid overload-Initially improved after diuresis, diuretic now held due to soft blood pressures * Atrial fibrillation-not on anticoagulation, on verapamil, resume same, rate controlled * Dementia-high risk fo delirium, on home meds * Hypertension on lisinopril * Hyponatremia-sodium l improved from 127-123,continue salt tablets * Hypokalemia resolved-now at 4.2 from 2.8 * Type 2 diabetes mellitus-SSI insulin for glucose control * DVT hep sq * Full code Plan * Continue antibiotic coverage * Wound care per surgeon * Pre-existing medication management as above * Nutrition and rehab support Current Visit: Yes
[2018-06-06] MEDS: CYANOCOBALAMIN (VITAMIN B-12) 500 MCG TABLET PO SCH (22:37)
[2018-06-07] MEDS: PIPERACILLIN SODIUM/TAZOBACTAM 3.375 GM in DEXTROSE 5% IN WATER 50 ML IV SCH ×4 (00:19→17:36)
[2018-06-07 06:15] LABS: Basophils # (Auto) 0 K/mcL (0.0-0.3); Basophils % (Auto) 0.1 % (0.0-2.0); Eosinophils # (Auto) 0.3 K/mcL (0.0-0.7); Eosinophils % (Auto) 2.7 % (0.0-7.0); Granulocytes % (Auto) 78.4 % (38.0-78.0); Lymphocytes # (Auto) 0.9 K/mcL (1.5-4.8); Lymphocytes % (Auto) 9.2 % (15.5-49.0); Mean Cell Volume 98.5 fL (80.0-100.0); Mean Corpuscular HGB Conc 33.3 g/dL (31.0-36.0); Monocytes # (Auto) 0.9 K/mcL (0.1-0.9); Monocytes % (Auto) 9.6 % (1.0-12.0); Platelet Count 306 K/mcL (140-440); RBC 2.83 M/mcL (4.00-5.20); Red Cell Distribution Width 12.8 % (11.5-14.5)
[2018-06-07 06:52] LABS: ALT/SGPT 25 U/l (0-40); Albumin 2.7 gm/dL (3.2-5.2); Albumin/Globulin Ratio 0.7 (1.0-2.3); Alkaline Phosphatase 100 U/L (39-117); Bilirubin,Direct < 0.2 mg/dL (0.0-0.3); Blood Urea Nitrogen 22 mg/dl (8-23); Gamma Glutamyl Transpeptidase 39 U/L (5-36); Uric Acid 3.2 mg/dL (2.5-8.0)
[2018-06-07] MEDS: 0.9 % SODIUM CHLORIDE 10 ML SYRINGE IV SCH ×3 (07:05→20:50)
[2018-06-07] MEDS: INSULIN LISPRO 1 UNIT/0.01 ML UNIT SQ SCH ×4 (07:05→20:49)
[2018-06-07] MEDS: ASPIRIN 81 MG TAB.CHEW PO SCH (08:18)
[2018-06-07] MEDS: SODIUM CHLORIDE 1 GM TABLET PO SCH ×3 (08:18→20:50)
[2018-06-07] MEDS: LISINOPRIL 5 MG TABLET PO SCH (08:18)
[2018-06-07] MEDS: VERAPAMIL 120 MG TAB.XL.24H PO SCH (08:19)
[2018-06-07] MEDS: VANCOMYCIN 1,000 MG in 0.9 % SODIUM CHLORIDE 250 ML IV SCH (08:20)
[2018-06-07] MEDS: HEPARIN 5,000 UNIT/ML VIAL SQ SCH ×2 (08:20→20:48)
--- NOTE | 2018-06-07 11:07 | Internal Med Progress Note ---
Medical - PN: Subj Patient information: Note initiated : 06/07/18 at 11:04 am Service Date, if different from initiated Date: [] Patient: Nayely Zhao a 88 y/o F admitted on 06/02/18 for bilateral leg wounds. Chief Complaint: [] Interval history: 06/02 Ms. Zhao is a 88 year old F who is pleasantly demented presents to the emergency room for evaluation of lower extremity swelling ulceration and redness. The patient is confused unable to provide any meaningful history most of the history is from chart review as well as talking to the ED nurse. No family by the bedside. According to the nurse the patient had been having swelling of lower extremities and weeping wounds that has been getting worse the last 4 days, patient has had multiple scratches and is now some redness developing on both the lower e xtremities. She was therefore sent here for further evaluation. The patient denies any other complaints she denies any headache chest pain shortness of breath cough denies any abdominal pain nausea vomiting diarrhea constipation or any urinary complaints. On presentation the ER the patient was afebrile heart rate 85 blood pressure 128/60 saturation 97% on room air. Labs show elevated WBC count at 22,600, hemoglobin 9.4 platelets 251 lactic acid 0.9, sodium 126 chloride 93 potassium 4.2 bicarbonate 22 glucose 118, creatinine 0.8 BUN 36. BNP pro calcitonin TSH is pending Chest x-ray done shows chronic COPD changes no acute infiltrate noted Patient is being admitted to the hospital with a diagnosis of cellulitis and possible fluid overload 2/ Pt seen examined, no acute issues, low grade fever noted, still has significant edema, gwen lower extremities, but denies any complaints, is lying comfortably in bed, pleasantly confused. 2/ Seen and examined on rounds, seen with Dr. Vickers. The patient was noted to have a fluctuant area on buttocks, extending towards labia. Initially provided by Dr. Shelby, subsequently seen by Dr. Vikcers, perianal abscess which is now drained. Has been cultured. Cultures from leg wounds growing MRSA and gram-negative bacillus.. Patient is without specific complaint. Keeps repeatedly asking what is wrong with her buttock. Legs are improving. Patient denies any dyspnea, abdominal pain or pain associated with her buttock lesion. 2/ Legs continue to improve. Leg wound cultures with MRSA and gram-negative bacilli. Therefore species of gram-negative bacilli, suspect they were pathogenic. Lab will plate those out for ID and sensitivity. Being seen by wound care. Gram-positive cocci on perianal abscess culture. 06/06-patient doing well. In good spirits. No shortness of breath fever or chills or concerns per staff. Citrobacter/MRSA on cultures. Continuing wound care/antibiotics including vancomycin/Zosyn. Continue treatment/rehab and nutrition support 06/07-doing well. No overnight events. Tolerating diet. Slept well. No co ncerns per staff. Ongoing wound care/antibiotic coverage. - Constitutional Vitals: Vital Signs Temp Pulse Resp BP Pulse Ox 98.4 F 83 16 122/60 96 06/07/18 07:22 06/07/18 04:11 06/07/18 07:22 06/07/18 07:22 06/07/18 07:22 Period Temp Pulse Resp BP Sys/Benedict Pulse Ox Last 24 Hr 97.1 F-98.8 F 72-83 16-20 120-140/58-70 91-98 Intake and Output 06/06/18 06/07/18 06/07/18 21:59 05:59 13:59 Intake Total 100 350 50 Output Total 350 825 Balance 100 0 -775 Weight 168 lb Intake & Output: Intake & Output 06/06/18 06/07/18 06/07/18 21:59 05:59 13:59 Intake Total 100 350 50 Output Total 350 825 Balance 100 0 -775 Weight 168 lb Intake: IV 100 50 50 Zosyn 3.375 gm In Dextrose 5% 100 50 50 in Water 50 ml @ 100 mls/hr IV Q6H [facility] Rx#:[id number] Oral 300 Output: Void Amount 350 Urine/Stool Mix 825 Other: Stool Size Small Moderate Small Stool Color Brown Brown Brown Stool Consistency Loose Soft Soft # Bowel Movements 1 General appearance: no acute distress Exam: Occasionally confused No labored breathing No anxiety Nondistended abdomen Medical - PN: Obj Da - Labs CBC & Chem 7: 06/07/18 04:00 06/07/18 04:00 Labs: Abnormal Lab Results 06/07/18 06/07/18 06/06/18 04:00 04:00 04:15 RBC 2.83 L Hgb 9.3 L Hct 27.8 L Gran % 78.4 H Lymph % (Auto) 9.2 L Gran # Lymph # (Auto) 0.9 L Sodium Potassium Carbon Dioxide 21 L Anion Gap 6.0 L BUN 25 H Glucose 111 H 115 H Calcium 8.4 L 8.3 L Phosphorus 2.6 L GGT 39 H AST Alkaline Phosphatase Albumin 2.7 L 2.4 L Globulin 3.8 H Albumin/Globulin Ratio 0.7 L 0.6 L 06/06/18 06/05/18 06/05/18 04:15 04:00 04:00 RBC 2.53 L 2.67 L Hgb 8.5 L 8.7 L Hct 24.8 L 26.2 L Gran % 80.0 H 82.9 H Lymph % (Auto) 8.4 L 6.4 L Gran # 8.3 H Lymph # (Auto) 0.7 L 0.6 L Sodium 132 L Potassium 3.1 L Carbon Dioxide Anion Gap BUN 29 H Glucose 130 H Calcium 8.1 L Phosphorus GGT AST 40 H Alkaline Phosphatase 135 H Albumin 2.5 L Globulin Albumin/Globulin Ratio 0.7 L Meds: Medications Acetaminophen (Tylenol) 650 mg PO Q6HP PRN PRN Reason: PAIN/FEVER > 101 Hydrocodone Bitart/Acetaminophen ([place] 10/325mg) 1 tab PO Q6HP PRN PRN Reason: Pain Aspirin (Aspirin) 162 mg PO DAILY [facility] Last Admin: 06/07/18 08:18 Dose: 162 mg Documented by: Cyanocobalamin (Vitamin B-12) 2,500 mcg PO HS [facility] Last Admin: 06/06/18 22:37 Dose: 2,500 mcg Documented by: Dextrose (Dextrose 50%) 0 ml IV UD PRN PRN Reason: Hypoglycemia Diagnostic Test (Pha) (Accu-Chek) 1 each FS ACHS [facility] Last Admin: 06/07/18 07:05 Dose: 1 each Documented by: Glucose (Insta-Glucose) 15 gm PO PRN PRN PRN Reason: Hypoglycemia Heparin Sodium (Porcine) (Heparin) 5,000 unit SQ Q12 [facility] Last Admin: 06/07/18 08:20 Dose: 5,000 unit Documented by: Hydromorphone HCl (Dilaudid) 0.5 mg IV Q2HP PRN PRN Reason: PAIN LEVEL > 6 Piperacillin Sod/Tazobactam (Sod 3.375 gm/ Dextrose) 50 mls @ 100 mls/hr IV Q6H [facility] Last Infusion: 06/07/18 07:11 Dose: Infused Documented by: Vancomycin HCl 1,000 mg/ (Sodium Chloride) 250 mls @ 250 mls/hr IV DAILY [facility] Last Admin: 06/07/18 08:20 Dose: 250 mls/hr Documented by: Insulin Human Lispro (Humalog) 0 unit SQ ACHS [facility]; Protocol Last Admin: 06/07/18 07:05 Dose: Not Given Documented by: Lisinopril (Zestril) 5 mg PO DAILY [facility] Last Admin: 06/07/18 08:18 Dose: 5 mg Documented by: Naloxone HCl (Narcan) 0.1 mg IV Q2MIN PRN PRN Reason: Opiate Reversal Ondansetron HCl (Zofran) 4 mg IV Q6HP PRN PRN Reason: Nausea And Vomiting Sodium Chloride (Saline Flush) 10 ml IV Q8 [facility] Last Admin: 06/07/18 07:05 Dose: 10 ml Documented by: Sodium Chloride (Sodium Chloride) 1 gm PO TID [facility] Last Admin: 06/07/18 08:18 Dose: 1 gm Documented by: Vancomycin HCl (Vancomycin Per Pharmacy) 1 order IV UD [facility] Verapamil HCl (Calan Sr) 120 mg PO DAILY [facility] Last Admin: 06/07/18 08:19 Dose: 120 mg Documented by: Medical - PN: A/P - Time Spent With Patient Total time spent is greater than 50% in coordination of care (as documented) at patient's floor/unit and/or counseling patient: 25 - 35 minutes (1) Abscess of anal and rectal regions Status: Acute Assessment and plan: * Buttock/perianal abscess-Spontaneously drained, cultures MRSA on vancomycin. Wound care per licensing specialist * Cellulitis of bilateral legs and feet,MRSA and Citrobacter. Continue Zosyn/vancomycin and daily wound care * Fluid overload-clinically resolved with diuretics. Diuretic on hold due to soft blood pressures * Atrial fibrillation-not on anticoagulation, on verapamil, resume same, rate controlled * Dementia-high risk fo delirium, on home meds * Hypertension on lisinopril * Hyponatremia-sodium l improved from 127-123,continue salt tablets * Hypokalemia resolved-now at 4.2 from 2.8 * Type 2 diabetes mellitus-SSI insulin for glucose control * DVT hep sq * Full code Plan * Continue antibiotic coverage * Continue wound care * Pre-existing medication management as above * Nutrition and rehab support * Discharge planning per case management Current Visit: Yes
[2018-06-07] MEDS: CYANOCOBALAMIN (VITAMIN B-12) 500 MCG TABLET PO SCH (20:50)
[2018-06-07] MEDS ORDERED: CIPROFLOXACIN 500 MG TABLET PO SCH (21:00)
[2018-06-08] MEDS: PIPERACILLIN SODIUM/TAZOBACTAM 3.375 GM in DEXTROSE 5% IN WATER 50 ML IV SCH ×5 (00:41→23:42)
[2018-06-08 05:19] LABS: Basophils # (Auto) 0 K/mcL (0.0-0.3); Basophils % (Auto) 0.3 % (0.0-2.0); Eosinophils # (Auto) 0.3 K/mcL (0.0-0.7); Eosinophils % (Auto) 4.4 % (0.0-7.0); Granulocytes % (Auto) 71.4 % (38.0-78.0); Lymphocytes # (Auto) 0.7 K/mcL (1.5-4.8); Lymphocytes % (Auto) 10.8 % (15.5-49.0); Mean Cell Volume 98.2 fL (80.0-100.0); Mean Corpuscular HGB Conc 32.9 g/dL (31.0-36.0); Monocytes # (Auto) 0.9 K/mcL (0.1-0.9); Monocytes % (Auto) 13.1 % (1.0-12.0); Platelet Count 317 K/mcL (140-440); RBC 2.62 M/mcL (4.00-5.20)
[2018-06-08] MEDS: 0.9 % SODIUM CHLORIDE 10 ML SYRINGE IV SCH ×3 (05:45→23:43)
[2018-06-08 05:52] LABS: ALT/SGPT 17 U/l (0-40); Albumin 2.5 gm/dL (3.2-5.2); Albumin/Globulin Ratio 0.8 (1.0-2.3); Alkaline Phosphatase 74 U/L (39-117); Bilirubin,Direct < 0.2 mg/dL (0.0-0.3); Blood Urea Nitrogen 23 mg/dl (8-23); Gamma Glutamyl Transpeptidase 31 U/L (5-36); Uric Acid 2.8 mg/dL (2.5-8.0)
[2018-06-08] MEDS: INSULIN LISPRO 1 UNIT/0.01 ML UNIT SQ SCH ×4 (07:16→21:45)
[2018-06-08] MEDS: LISINOPRIL 5 MG TABLET PO SCH (08:33)
[2018-06-08] MEDS: VERAPAMIL 120 MG TAB.XL.24H PO SCH (08:33)
[2018-06-08] MEDS: ASPIRIN 81 MG TAB.CHEW PO SCH (08:33)
[2018-06-08] MEDS: SODIUM CHLORIDE 1 GM TABLET PO SCH ×3 (08:33→21:23)
[2018-06-08] MEDS: HEPARIN 5,000 UNIT/ML VIAL SQ SCH ×2 (08:33→21:27)
[2018-06-08] MEDS: VANCOMYCIN 1,000 MG in 0.9 % SODIUM CHLORIDE 250 ML IV SCH (09:51)
--- NOTE | 2018-06-08 11:18 | Internal Med Progress Note ---
Medical - PN: Subj Patient information: Note initiated : 06/08/18 at 11:15 am Service Date, if different from initiated Date: [] Patient: Nayely Zhao a 88 y/o F admitted on 06/02/18 for bilateral leg wounds. Chief Complaint: [] Interval history: 06/02 Ms. Zhao is a 88 year old F who is pleasantly demented presents to the emergency room for evaluation of lower extremity swelling ulceration and redness. The patient is confused unable to provide any meaningful history most of the history is from chart review as well as talking to the ED nurse. No family by the bedside. According to the nurse the patient had been having swelling of lower extremities and weeping wounds that has been getting worse the last 4 days, patient has had multiple scratches and is now some redness developing on both the lower e xtremities. She was therefore sent here for further evaluation. The patient denies any other complaints she denies any headache chest pain shortness of breath cough denies any abdominal pain nausea vomiting diarrhea constipation or any urinary complaints. On presentation the ER the patient was afebrile heart rate 85 blood pressure 128/60 saturation 97% on room air. Labs show elevated WBC count at 22,600, hemoglobin 9.4 platelets 251 lactic acid 0.9, sodium 126 chloride 93 potassium 4.2 bicarbonate 22 glucose 118, creatinine 0.8 BUN 36. BNP pro calcitonin TSH is pending Chest x-ray done shows chronic COPD changes no acute infiltrate noted Patient is being admitted to the hospital with a diagnosis of cellulitis and possible fluid overload 2/ Pt seen examined, no acute issues, low grade fever noted, still has significant edema, gwen lower extremities, but denies any complaints, is lying comfortably in bed, pleasantly confused. 2/ Seen and examined on rounds, seen with Dr. Vickers. The patient was noted to have a fluctuant area on buttocks, extending towards labia. Initially provided by Dr. Shelby, subsequently seen by Dr. Vickers, perianal abscess which is now drained. Has been cultured. Cultures from leg wounds growing MRSA and gram-negative bacillus.. Patient is without specific complaint. Keeps repeatedly asking what is wrong with her buttock. Legs are improving. Patient denies any dyspnea, abdominal pain or pain associated with her buttock lesion. 2/ Legs continue to improve. Leg wound cultures with MRSA and gram-negative bacilli. Therefore species of gram-negative bacilli, suspect they were pathogenic. Lab will plate those out for ID and sensitivity. Being seen by wound care. Gram-positive cocci on perianal abscess culture. 06/06-patient doing well. In good spirits. No shortness of breath fever or chills or concerns per staff. Citrobacter/MRSA on cultures. Continuing wound care/antibiotics including vancomycin/Zosyn. Continue treatment/rehab and nutrition support 06/07-doing well. No overnight events. Tolerating diet. Slept well. No co ncerns per staff. Ongoing wound care/antibiotic coverage. 06/08-continue antibiotics/wound care. Ongoing therapy/nutrition support. No overnight events or concerns per staff. ID consulted and will attempt to de- escalate antibiotics on Saturday. - Constitutional Vitals: Vital Signs Temp Pulse Resp BP Pulse Ox 97.2 F 73 16 128/70 97 06/08/18 07:21 06/08/18 07:21 06/08/18 07:21 06/08/18 07:21 06/08/18 07:21 Period Temp Pulse Resp BP Sys/Benedict Pulse Ox Last 24 Hr 96.7 F-98.3 F 65-79 16-20 120-140/62-76 95-100 Intake and Output 06/07/18 06/08/18 06/08/18 21:59 05:59 13:59 Intake Total 550 750 480 Output Total 950 500 650 Balance -400 250 -170 Weight 170 lb Intake & Output: Intake & Output 06/07/18 06/08/18 06/08/18 21:59 05:59 13:59 Intake Total 550 750 480 Output Total 950 500 650 Balance -400 250 -170 Weight 170 lb Intake: IV 50 50 Zosyn 3.375 gm In Dextrose 5% 50 50 in Water 50 ml @ 100 mls/hr IV Q6H [facility] Rx#:[id number] Oral 500 700 480 Output: Void Amount 950 500 650 Other: Meal Breakfast Percent of Meal Consumed 100% Urine Appearance Clear Urine Color Bright Yellow Urine Odor Normal Stool Size Small Small Small Stool Color Brown Brown Brown Blood Tinged Blood Tinged Stool Consistency Soft Soft Loose # Voids 1 1 # Bowel Movements 1 1 1 # of times incontinent of 1 1 1 Bowels General appearance: no acute distress Exam: Alert No labored breathing No anxiety or distress Medical - PN: Obj Da - Labs CBC & Chem 7: 06/08/18 04:05 06/08/18 04:05 Labs: Abnormal Lab Results 06/08/18 06/08/18 06/07/18 04:05 04:05 04:00 RBC 2.62 L Hgb 8.5 L Hct 25.7 L Gran % Lymph % (Auto) 10.8 L [place] % (Auto) 13.1 H Lymph # (Auto) 0.7 L Carbon Dioxide 21 L 21 L Anion Gap BUN Glucose 111 H 111 H Calcium 7.9 L 8.4 L Phosphorus GGT 39 H Total Protein 5.7 L Albumin 2.5 L 2.7 L Globulin 3.8 H Albumin/Globulin Ratio 0.8 L 0.7 L 06/07/18 06/06/18 06/06/18 04:00 04:15 04:15 RBC 2.83 L 2.53 L Hgb 9.3 L 8.5 L Hct 27.8 L 24.8 L Gran % 78.4 H 80.0 H Lymph % (Auto) 9.2 L 8.4 L [place] % (Auto) Lymph # (Auto) 0.9 L 0.7 L Carbon Dioxide Anion Gap 6.0 L BUN 25 H Glucose 115 H Calcium 8.3 L Phosphorus 2.6 L GGT Total Protein Albumin 2.4 L Globulin Albumin/Globulin Ratio 0.6 L Meds: Medications Acetaminophen (Tylenol) 650 mg PO Q6HP PRN PRN Reason: PAIN/FEVER > 101 Hydrocodone Bitart/Acetaminophen ([place] 10/325mg) 1 tab PO Q6HP PRN PRN Reason: Pain Aspirin (Aspirin) 162 mg PO DAILY [facility] Last Admin: 06/08/18 08:33 Dose: 162 mg Documented by: Cyanocobalamin (Vitamin B-12) 2,500 mcg PO HS [facility] Last Admin: 06/07/18 20:50 Dose: 2,500 mcg Documented by: Dextrose (Dextrose 50%) 0 ml IV UD PRN PRN Reason: Hypoglycemia Diagnostic Test (Pha) (Accu-Chek) 1 each FS ACHS [facility] Last Admin: 06/08/18 07:16 Dose: 1 each Documented by: Glucose (Insta-Glucose) 15 gm PO PRN PRN PRN Reason: Hypoglycemia Heparin Sodium (Porcine) (Heparin) 5,000 unit SQ Q12 [facility] Last Admin: 06/08/18 08:33 Dose: 5,000 unit Documented by: Hydromorphone HCl (Dilaudid) 0.5 mg IV Q2HP PRN PRN Reason: PAIN LEVEL > 6 Piperacillin Sod/Tazobactam (Sod 3.375 gm/ Dextrose) 50 mls @ 100 mls/hr IV Q6H [facility] Last Admin: 06/08/18 05:45 Dose: 100 mls/hr Documented by: Vancomycin HCl 1,000 mg/ (Sodium Chloride) 250 mls @ 250 mls/hr IV DAILY [facility] Last Admin: 06/08/18 09:51 Dose: 250 mls/hr Documented by: Insulin Human Lispro (Humalog) 0 unit SQ ACHS [facility]; Protocol Last Admin: 06/08/18 07:16 Dose: Not Given Documented by: Lisinopril (Zestril) 5 mg PO DAILY [facility] Last Admin: 06/08/18 08:33 Dose: 5 mg Documented by: Naloxone HCl (Narcan) 0.1 mg IV Q2MIN PRN PRN Reason: Opiate Reversal Ondansetron HCl (Zofran) 4 mg IV Q6HP PRN PRN Reason: Nausea And Vomiting Sodium Chloride (Saline Flush) 10 ml IV Q8 [facility] Last Admin: 06/08/18 05:45 Dose: 10 ml Documented by: Sodium Chloride (Sodium Chloride) 1 gm PO TID [facility] Last Admin: 06/08/18 08:33 Dose: 1 gm Documented by: Vancomycin HCl (Vancomycin Per Pharmacy) 1 order IV UD [facility] Verapamil HCl (Calan Sr) 120 mg PO DAILY [facility] Last Admin: 06/08/18 08:33 Dose: 120 mg Documented by: Medical - PN: A/P - Time Spent With Patient Total time spent is greater than 50% in coordination of care (as documented) at patient's floor/unit and/or counseling patient: 15 - 24 minutes (1) Abscess of anal and rectal regions Status: Acute Assessment and plan: * Buttock/perianal abscess-Spontaneously drained, cultures MRSA- on vancomycin. Wound care per government affairs specialist. ID consulted and will recommend de- escalation in 24 hours * Cellulitis of bilateral legs and feet,MRSA, Acinetobacter, stenotrophomonas and Citrobacter. Continue Zosyn/vancomycin and daily wound care until de- escalate by ID * Fluid overload-clinically resolved with diuretics. Diuretic on hold due to soft blood pressures * Atrial fibrillation-not on anticoagulation, on verapamil, rate controlled * Dementia- stable on home meds * Hypertension stable on lisinopril * Hyponatremia-sodium l improved from 127-123,continue salt tablets * Hypokalemia resolved-now at 4.2 from 2.8 * Type 2 diabetes mellitus-SSI insulin for glucose control * DVT hep sq * Full code Plan * De-escalate antibiotics in 24 hours as per ID * Continue wound care * Pre-existing medication management as above * Continue nutrition and rehab support * Discharge planning per case management Current Visit: Yes
[2018-06-08] MEDS: CYANOCOBALAMIN (VITAMIN B-12) 500 MCG TABLET PO SCH (21:23)
[2018-06-09] MEDS: 0.9 % SODIUM CHLORIDE 10 ML SYRINGE IV SCH ×2 (06:01→12:02)
[2018-06-09] MEDS: PIPERACILLIN SODIUM/TAZOBACTAM 3.375 GM in DEXTROSE 5% IN WATER 50 ML IV SCH ×2 (06:01→11:59)
[2018-06-09 06:14] LABS: Basophils # (Auto) 0 K/mcL (0.0-0.3); Basophils % (Auto) 0.6 % (0.0-2.0); Eosinophils # (Auto) 0.3 K/mcL (0.0-0.7); Eosinophils % (Auto) 4.9 % (0.0-7.0); Granulocytes % (Auto) 65.7 % (38.0-78.0); Lymphocytes # (Auto) 0.9 K/mcL (1.5-4.8); Lymphocytes % (Auto) 14.1 % (15.5-49.0); Mean Cell Volume 98.1 fL (80.0-100.0); Mean Corpuscular HGB Conc 32.7 g/dL (31.0-36.0); Monocytes # (Auto) 0.9 K/mcL (0.1-0.9); Monocytes % (Auto) 14.7 % (1.0-12.0); Platelet Count 333 K/mcL (140-440); RBC 2.69 M/mcL (4.00-5.20)
[2018-06-09 07:04] LABS: ALT/SGPT 16 U/l (0-40); Albumin 2.5 gm/dL (3.2-5.2); Albumin/Globulin Ratio 0.7 (1.0-2.3); Alkaline Phosphatase 71 U/L (39-117); Bilirubin,Direct < 0.2 mg/dL (0.0-0.3); Blood Urea Nitrogen 23 mg/dl (8-23); Gamma Glutamyl Transpeptidase 30 U/L (5-36); Uric Acid 2.9 mg/dL (2.5-8.0)
[2018-06-09] MEDS: INSULIN LISPRO 1 UNIT/0.01 ML UNIT SQ SCH ×2 (07:07→11:58)
[2018-06-09] MEDS: ASPIRIN 81 MG TAB.CHEW PO SCH (09:11)
[2018-06-09] MEDS: LISINOPRIL 5 MG TABLET PO SCH (09:11)
[2018-06-09] MEDS: VERAPAMIL 120 MG TAB.XL.24H PO SCH (09:11)
[2018-06-09] MEDS: SODIUM CHLORIDE 1 GM TABLET PO SCH (09:11)
[2018-06-09] MEDS: VANCOMYCIN 1,000 MG in 0.9 % SODIUM CHLORIDE 250 ML IV SCH (09:12)
[2018-06-09] MEDS: HEPARIN 5,000 UNIT/ML VIAL SQ SCH (09:12)
[2018-06-09] MEDS ORDERED: 0.9 % SODIUM CHLORIDE 10 ML SYRINGE IV PRN (10:42)
--- NOTE | 2018-06-09 12:39 | Discharge Summary ---
Medical - DS: Prov Patient information: Note initiated : 06/09/18 at 12:37 pm Service Date, if different from initiated Date: [] Patient: Nayely Zhao 88 y/o F admitted on 06/02/18 for bilateral leg wounds. Chief Complaint: [] Date of admission: 06/02/18 22:58 Discharge date: 06/09/18 Primary care physician: Leonor Bond Consults: 06/02/18 Consult to Physician [CONS] Stat Comment: Consulting Provider: Husam Huff Reason For Exam: Physician to Consult 06/03/18 09:39 Consult to Physician [CONS] Routine Comment: wound care Consulting Provider: Sonido Shelby Reason For Exam: Physician to Consult 06/09/18 08:39 Consult to Physician [CONS] Routine Comment: Consulting Provider: Brian Benavidez Reason For Exam: Physician to Consult Medical - DS: Meds - Discharge Medications Active and Home Medications: Home Medications aspirin 81 mg tablet,delayed release 162 mg PO QDAY tab 01/10/15 [History Confirmed 06/03/18 Last Taken 06/02/18] ascorbate calcium 500 mg tablet 500 mg PO QDAY #30 tab 03/18/17 [Rx Confirmed 06/03/18 Last Taken 06/02/18] cyanocobalamin (vitamin B-12) 2,500 mcg tablet 2,500 mcg PO QHS #30 tab 03/18/17 [Rx Confirmed 06/03/18 Last Taken 07/16/17] lisinopril 10 mg tablet 5 mg PO QDAY 30 Days #15 tab 11/01/17 [Rx Confirmed 06/03/18 Last Taken 06/02/18] verapamil ER 120 mg 24 hr capsule,extended release 120 mg PO DAILY #30 [email or web address] 01/16/18 [Rx Confirmed 06/03/18 Last Taken 06/02/18] furosemide 20 mg tablet 20 mg PO QDAY PRN #30 tab 03/14/18 [Rx Confirmed 06/03/18 Last Taken 06/02/18] hydrocodone 10 mg-acetaminophen 325 mg tablet 1 tab PO Q6H PRN #120 tab 04/09/18 [Rx Confirmed 06/03/18 Last Taken 06/03/18] Medical - DS: Hosp Hospital course: Discharge diagnosis * Buttock/perianal abscess-Spontaneously drained, clinically improved. Cultures MRSA-treated vancomycin. Ongoing wound care per software licensing specialist. I did recommend just continuation of all antibiotics * Cellulitis of bilateral legs and feet,MRSA, clinically resolved. ID recommends discontinuation of antibiotics * Fluid overload-clinically resolved with diuretics. Diuretic on hold due to s oft blood pressures * Atrial fibrillation-not on anticoagulation, on verapamil, rate controlled * Dementia- stable on home meds * Hypertension stable on lisinopril * Hyponatremia-sodium l improved from 127-123,continue salt tablets * Hypokalemia resolved-now at 4.2 from 2.8 * Type 2 diabetes mellitus-SSI insulin for glucose control Brief hospital course Ms. Zhao is a 88 year old F who is pleasantly demented presents to the emergency room for evaluation of lower extremity swelling ulceration and redness. The patient is confused unable to provide any meaningful history most of the history is from chart review as well as talking to the ED nurse. No family by the bedside. According to the nurse the patient had been having swelling of lower extremities and weeping wounds that has been getting worse the last 4 days, patient has had multiple scratches and is now some redness developing on both the lower extremities. She was therefore sent here for further evaluation. The patient denies any other complaints she denies any headache chest pain shortness of breath cough denies any abdominal pain nausea vomiting diarrhea constipation or any urinary complaints. On presentation the ER the patient was afebrile heart rate 85 blood pressure 128/60 saturation 97% on room air. Labs show elevated WBC count at 22,600, hemoglobin 9.4 platelets 251 lactic acid 0.9, sodium 126 chloride 93 potassium 4.2 bicarbonate 22 glucose 118, creatinine 0.8 BUN 36. BNP pro calcitonin TSH is pending Chest x-ray done shows chronic COPD changes no acute infiltrate noted Patient is being admitted to the hospital with a diagnosis of cellulitis and possible fluid overload 2/ Pt seen examined, no acute issues, low grade fever noted, still has significant edema, gwen lower extremities, but denies any complaints, is lying comfortably in bed, pleasantly confused. 2/ Seen and examined on rounds, seen with Dr. Vickers. The patient was noted to have a fluctuant area on buttocks, extending towards labia. Initially provided by Dr. Shelby, subsequently seen by Dr. Vickers, perianal abscess which is now drained. Has been cultured. Cultures from leg wounds growing MRSA and gram-negative bacillus.. Patient is without specific complaint. Keeps repeatedly asking what is wrong with her buttock. Legs are improving. Patient denies any dyspnea, abdominal pain or pain associated with her buttock lesion. 06/05 Legs continue to improve. Leg wound cultures with MRSA and gram-negative bacilli. Therefore species of gram-negative bacilli, suspect they were pathogenic. Lab will plate those out for ID and sensitivity. Being seen by wound care. Gram-positive cocci on perianal abscess culture. 06/06-patient doing well. In good spirits. No shortness of breath fever or chill s or concerns per staff. Citrobacter/MRSA on cultures. Continuing wound care/antibiotics including vancomycin/Zosyn. Continue treatment/rehab and nutrition support 06/07-doing well. No overnight events. Tolerating diet. Slept well. No concerns per staff. Ongoing wound care/antibiotic coverage. 06/08-continue antibiotics/wound care. Ongoing therapy/nutrition support. No overnight events or concerns per staff. ID consulted and will attempt to de- escalate antibiotics on Saturday. 06/09-patient clinically improved. No overnight events. No concerns per staff. ID recommended continuation of oral antibiotics. Patient discharging to SNF. Will continue outpatient wound care. Discharge diagnosis: . - Time Spent with Patient Total time spent providing and/or coordinating discharge services: Greater than 30 minutes Medical - DS: Exam - Constitutional Vitals: Vital Signs Temp Pulse Resp BP Pulse Ox 06/09/18 11:57 97.5 F 75 18 135/67 98 06/09/18 06:52 97.8 F 79 18 142/64 99 06/09/18 04:14 97.9 F 72 16 136/66 98 06/09/18 00:00 97.4 F 72 12 128/66 100 06/08/18 19:16 97.7 F 74 14 132/52 99 06/08/18 15:47 97.7 F 70 14 130/64 99 Intake and Output 06/08/18 06/09/18 06/09/18 21:59 05:59 13:59 Intake Total 930 700 300 Output Total 425 350 200 Balance 505 350 100 Intake: IV 50 50 300 Zosyn 3.375 gm In Dextrose 5% 50 50 50 in Water 50 ml @ 100 mls/hr IV Q6H [facility] Rx#:[id number] Vancomycin 1,000 mg In Sodium 250 Chloride 0.9% 250 ml @ 250 mls/ hr IV DAILY [facility] Rx#:[id number] Oral 880 650 Output: Void Amount 425 350 200 Other: Meal Dinner Percent of Meal Consumed 75% Urine Appearance Clear Urine Color Bright Yellow Urine Odor Normal Stool Size Small Small Moderate Stool Color Brown Brown Brown Stool Consistency Soft Soft Loose # Voids 1 1 # Bowel Movements 1 1 1 # of times incontinent of 1 1 Bowels Weight 171 lb Medical - DS: Data Labs on day of discharge: Labs from last 24 hours 06/09/18 06/09/18 04:10 04:10 WBC 6.0 RBC 2.69 L Hgb 8.6 L Hct 26.4 L MCV 98.1 MCH 32.1 MCHC 32.7 RDW 13.0 Plt Count 333 MPV 7.3 L Gran % 65.7 Lymph % (Auto) 14.1 L [place] % (Auto) 14.7 H Eos % (Auto) 4.9 Baso % (Auto) 0.6 Gran # 4.0 Lymph # (Auto) 0.9 L [place] # (Auto) 0.9 Eos # (Auto) 0.3 Baso # (Auto) 0 Sodium 128 L Potassium 4.4 Chloride 99 Carbon Dioxide 23 Anion Gap 6.0 L BUN 23 Creatinine 0.9 GFR Calculation 57 Glucose 95 Uric Acid 2.9 Calcium 8.3 L Phosphorus 3.3 Magnesium 1.8 Total Bilirubin 0.3 Direct Bilirubin < 0.2 GGT 30 AST 13 ALT 16 Alkaline Phosphatase 71 Lactate Dehydrogenase 162 Total Protein 6.1 Albumin 2.5 L Globulin 3.6 Albumin/Globulin Ratio 0.7 L Triglycerides 55 Medical - DS: A/P - Patient/Caregiver Discharge Instructions Activity: as per physical therapy, increase activity as tolerated, other (Wound care) Diet: Low Sodium (2gm) Additional Instructions: Follow-up PCP in 5 days Follow-up wound care as scheduled I recommend SNF physician to check CBC BMP UA as a posthospital follow-up in 1 week. Continue aggressive bowel regimen to prevent constipation Continue fall precautions Continue aggressive PT OT evaluation and treatment at [facility]. ST eval and treatment if indicated All meals on chair sitting upright at 90 degrees to prevent aspiration Return to ER if worsening fever chills shortness of breath, diarrhea, bleeding Continue diet and activity as advised Discussed importance of medication adherence Please review medication list with patient prior to discharge Please schedule follow-up with PCP/Providers prior to discharge and provide printouts - Problem Maintenance (1) Abscess of anal and rectal regions Status: Acute - Follow up Plan Follow up with: Leonor Bond, KIMBERLY, [employer] [Primary Care Provider] - Disposition: Xfer SNF Prognosis: Fair Rehab Potential: Fair I certify that the patient requires SNF services: Yes Overall status at discharge: patient is progressing back to baseline
--- NOTE | 2018-06-09 17:06 | Infectious Disease Consult ---
History of Present Illness Patient information: Note initiated : 06/09/18 at 5:05 pm Service Date, if different from initiated Date: [] Patient: Nayely Zhao 88 y/o F admitted on 06/02/18 for bilateral leg wounds. Chief Complaint: [] Consult date: 06/09/18 Requesting Physician: Axel Flores Reason for Consult: Lower extremity cellulitis and abscess in the perineal area Chief complaint: I hurt in my legs and buttocks History of present illness: 88 year old lady with PMHx of: - dementia - correction residence Pt was admitted around 06/03 with c/o b/l lower extremity swelling,and redness and superficial ulceration of left leg. HPI obtained by chart review as pt unable to give a chronological history According to the nurse at [facility], the patient had been having swelling of lower extremities and weeping wounds that has been getting worse the last 4 days, patient has had multiple scratches and is now some redness developing on both the lower extremities. She was therefore sent here for further evaluation. The patient denies any other complaints she denies any headache chest pain shor tness of breath cough denies any abdominal pain nausea vomiting diarrhea constipation or any urinary complaints. On presentation the ER the patient was afebrile heart rate 85 blood pressure 128/60 saturation 97% on room air. Labs show elevated WBC count at 22,600, hemoglobin 9.4 platelets 251 lactic acid 0.9, sodium 126 chloride 93 potassium 4.2 bicarbonate 22 glucose 118, creatinine 0.8 BUN 36. Chest x-ray done shows chronic COPD changes no acute infiltrate noted. Patient was admitted to the hospital with a diagnosis of cellulitis and possible fluid overload. Pt was started on IV Vanc and IV Zosyn. On 06/04, the patient was noted to have a fluctuant area on buttocks, extending towards labia. It was drained by the surgeon and sent for culture, and grew MRSA. The wound Cx sent at admission grew MRSA, multiple GNR [ Acinetobacter, Stenotrophomonas, Citrobacter]. Pt continued to get better. ID was consulted on 06/09 (day of her discharge) to see if antibiotics could be deescalated. At time of visit, pt denied any symptoms except for mild pain in both lower extremities. She denied any diarrhea today. Review of Systems All systems PM: reviewed and no additional remarkable complaints except as stated Medications and Allergies Home Medications Medication Instructions Recorded Confirmed Type aspirin 81 mg tablet,delayed 162 mg PO QDAY tab 01/10/15 06/03/18 History release ascorbate calcium 500 mg tablet 500 mg PO QDAY #30 tab 03/18/17 06/03/18 Rx cyanocobalamin (vitamin B-12) 2,500 mcg PO QHS #30 tab 03/18/17 06/03/18 Rx 2,500 mcg tablet lisinopril 10 mg tablet 5 mg PO QDAY 30 Days #15 tab 11/01/17 06/03/18 Rx verapamil ER 120 mg 24 hr 120 mg PO DAILY #30 [email or web address] 01/16/18 06/03/18 Rx capsule,extended release furosemide 20 mg tablet 20 mg PO QDAY PRN #30 tab 03/14/18 06/03/18 Rx hydrocodone 10 mg-acetaminophen 1 tab PO Q6H PRN #120 tab 04/09/18 06/03/18 Rx 325 mg tablet HYDROcodone/APAP 10/325MG [Quail 1 tab PO Q6H PRN #10 tab 06/09/18 Rx 10-325Mg] chlorhexidine gluconate 2 % 2 % TOPICAL DAILY #30 each 06/09/18 Rx towelette mupirocin 2 % nasal ointment 1 applic INTRANASAL BID 5 Days #10 06/09/18 Rx g Allergies Allergy/AdvReac Type Severity Reaction Status Date / Time Sulfa (Sulfonamide Allergy Mild Rash Verified 06/02/18 16:32 Antibiotics) apixaban [From Eliquis] AdvReac Intermediate rectal Verified 06/02/18 16:32 bleeding Physical Examination Vital signs: Temp Pulse Resp BP Pulse Ox 36.9 C 75 18 104/48 98 06/09/18 13:43 06/09/18 13:43 06/09/18 13:43 06/09/18 13:43 06/09/18 13:43 Results - Laboratory Findings CBC and BMP: 06/09/18 04:10 06/09/18 04:10 Abnormal lab findings: Abnormal Labs 06/02/18 06/02/18 06/02/18 17:28 17:28 21:30 WBC 22.6 H RBC 2.87 L Hgb 9.4 L Hct 28.5 L POC Hct 26.0 L MPV Gran % 90.9 H Lymph % (Auto) 3.0 L [place] % (Auto) Gran # 20.6 H Lymph # (Auto) 0.7 L [place] # (Auto) 1.3 H POC Sodium 126 L Sodium Potassium POC Chloride 93 L Chloride Carbon Dioxide Anion Gap POC BUN 36 H BUN Glucose POC Glucose 118 H Calcium POC WB Ioniz Calcium 1.12 L Phosphorus Magnesium GGT AST Alkaline Phosphatase NT-Pro-B Natriuret Pep 1714.0 H Total Protein Albumin Globulin Albumin/Globulin Ratio Urine Occult Blood Ur Leukocyte Esterase Urine RBC Urine WBC Ur Yeast w Hyphae Urine Yeast (Budding) 06/02/18 06/03/18 06/03/18 21:55 04:25 04:25 WBC 19.7 H RBC 2.76 L Hgb 9.1 L Hct 27.2 L POC Hct MPV Gran % 90.8 H Lymph % (Auto) 2.5 L [place] % (Auto) Gran # 17.9 H Lymph # (Auto) 0.5 L [place] # (Auto) 1.3 H POC Sodium Sodium 127 L Potassium POC Chloride Chloride 91 L Carbon Dioxide Anion Gap POC BUN BUN 38 H Glucose 162 H POC Glucose Calcium 8.4 L POC WB Ioniz Calcium Phosphorus Magnesium GGT AST Alkaline Phosphatase NT-Pro-B Natriuret Pep Total Protein Albumin 2.5 L Globulin Albumin/Globulin Ratio 0.7 L Urine Occult Blood 0.2 A Ur Leukocyte Esterase 500 A Urine RBC 12 H Urine WBC 117 H Ur Yeast w Hyphae Few A Urine Yeast (Budding) Mod A 06/04/18 06/04/18 06/05/18 04:05 04:05 04:00 WBC 15.6 H RBC 2.60 L 2.67 L Hgb 8.5 L 8.7 L Hct 25.7 L 26.2 L POC Hct MPV Gran % 89.4 H 82.9 H Lymph % (Auto) 3.4 L 6.4 L [place] % (Auto) Gran # 13.9 H 8.3 H Lymph # (Auto) 0.5 L 0.6 L [place] # (Auto) 1.0 H POC Sodium Sodium 129 L Potassium 2.8 L* POC Chloride Chloride 93 L Carbon Dioxide Anion Gap POC BUN BUN 35 H Glucose 121 H POC Glucose Calcium 8.1 L POC WB Ioniz Calcium Phosphorus Magnesium 1.4 L GGT AST Alkaline Phosphatase NT-Pro-B Natriuret Pep Total Protein Albumin 2.5 L Globulin Albumin/Globulin Ratio 0.7 L Urine Occult Blood Ur Leukocyte Esterase Urine RBC Urine WBC Ur Yeast w Hyphae Urine Yeast (Budding) 06/05/18 06/06/18 06/06/18 04:00 04:15 04:15 WBC RBC 2.53 L Hgb 8.5 L Hct 24.8 L POC Hct MPV Gran % 80.0 H Lymph % (Auto) 8.4 L [place] % (Auto) Gran # Lymph # (Auto) 0.7 L [place]mullen # (Auto) POC Sodium Sodium 132 L Potassium 3.1 L POC Chloride Chloride Carbon Dioxide Anion Gap 6.0 L POC BUN BUN 29 H 25 H Glucose 130 H 115 H POC Glucose Calcium 8.1 L 8.3 L POC WB Ioniz Calcium Phosphorus 2.6 L Magnesium GGT AST 40 H Alkaline Phosphatase 135 H NT-Pro-B Natriuret Pep Total Protein Albumin 2.5 L 2.4 L Globulin Albumin/Globulin Ratio 0.7 L 0.6 L Urine Occult Blood Ur Leukocyte Esterase Urine RBC Urine WBC Ur Yeast w Hyphae Urine Yeast (Budding) 06/07/18 06/07/18 06/08/18 04:00 04:00 04:05 WBC RBC 2.83 L 2.62 L Hgb 9.3 L 8.5 L Hct 27.8 L 25.7 L POC Hct MPV Gran % 78.4 H Lymph % (Auto) 9.2 L 10.8 L [place] % (Auto) 13.1 H Gran # Lymph # (Auto) 0.9 L 0.7 L [place] # (Auto) POC Sodium Sodium Potassium POC Chloride Chloride Carbon Dioxide 21 L Anion Gap POC BUN BUN Glucose 111 H POC Glucose Calcium 8.4 L POC WB Ioniz Calcium Phosphorus Magnesium GGT 39 H AST Alkaline Phosphatase NT-Pro-B Natriuret Pep Total Protein Albumin 2.7 L Globulin 3.8 H Albumin/Globulin Ratio 0.7 L Urine Occult Blood Ur Leukocyte Esterase Urine RBC Urine WBC Ur Yeast w Hyphae Urine Yeast (Budding) 06/08/18 06/09/18 06/09/18 04:05 04:10 04:10 WBC RBC 2.69 L Hgb 8.6 L Hct 26.4 L POC Hct MPV 7.3 L Gran % Lymph % (Auto) 14.1 L [place] % (Auto) 14.7 H Gran # Lymph # (Auto) 0.9 L [place] # (Auto) POC Sodium Sodium 128 L Potassium POC Chloride Chloride Carbon Dioxide 21 L Anion Gap 6.0 L POC BUN BUN Glucose 111 H POC Glucose Calcium 7.9 L 8.3 L POC WB Ioniz Calcium Phosphorus Magnesium GGT AST Alkaline Phosphatase NT-Pro-B Natriuret Pep Total Protein 5.7 L Albumin 2.5 L 2.5 L Globulin Albumin/Globulin Ratio 0.8 L 0.7 L Urine Occult Blood Ur Leukocyte Esterase Urine RBC Urine WBC Ur Yeast w Hyphae Urine Yeast (Budding) Microbiology: Microbiology 06/09/18 13:26 Nose MRSA (PCR) - Final MRSA PCR positive 06/02/18 19:07 Blood Blood Culture - Final 06/02/18 19:14 Blood Blood Culture - Final 06/02/18 17:40 Leg - Lower Right Gram Stain - Final 06/02/18 17:40 Leg - Lower Right Wound Culture - Final Methicillin resistant s.aureus Stenotrophomonas maltophilia Acinetobacter lwoffii Citrobacter freundii 06/04/18 16:20 Perirectal Gram Stain - Final 06/04/18 16:20 Perirectal Abscess Culture - Final Methicillin resistant s.aureus 06/02/18 21:55 Urine - Catheterized Urine Culture - Final Bell albicans Assessment and Plan - Narrative A/P Narrative: A: 1. Abscess in perineal area with extension to underlying soft tissues: s/p drainage and no concerns of rectal fistulization or another fistula per surgeon's assessment - Cx grew MRSA - s/p 7 days of IV Vanc 2. Lt LE cellulitis with superificial wounds: exam c/w superficial ulcers which look uninfected Recommendations: - Consider MRSA nasal screen. If positive will treat with 2% nasal mupirocin once daily x 5 days and below-neck CHG wipes 2% once daily for 5 days - IV antibiotics can be stopped as pt has recieved adequate duration after surgical drainage for perineal area abscess and for lower extremity cellulitis - pt will benefir from continued local wound care after discharge will call correction after discharge if pt is positive for MRSA nasal screen Brian Benavidez MD Infectious diseases
[2018-06-09] MEDS ORDERED: 0.9 % SODIUM CHLORIDE 10 ML SYRINGE IV SCH (21:00)
== END 2018-06-09 14:16 | DRG 603 ==
LOC: ED 16:30 → MEDSUR 22:58
PROVIDERS: ADMIT Internal Medicine; ATTEND Internal Medicine

== ENCOUNTER 2019-07-14 12:12 | Inpatient (IN) ==
[2019-07-14] MEDS ORDERED: IOPAMIDOL 100 ML BOTTLE IV ONE (12:13)
[2019-07-14] MEDS ORDERED: 0.9 % SODIUM CHLORIDE 1,000 ML IV ONE (12:51)
[2019-07-14 13:03] LABS: POC Blood Urea Nitrogen 38 mg/dl (8-23); POC CO2 24 mmol/L (22-30); POC Calcium, Ionized 1.14 mmol/L (1.16-1.32); POC Chloride 100 mmol/L (96-108); POC Creatinine 0.9 mg/dl (0.6-1.1); POC Glucose, Random 159 mg/dL (70-105); POC Potassium 4.8 mmol/L (3.3-5.1); POC Sodium 133 mmol/L (133-145)
[2019-07-14] MEDS ORDERED: ONDANSETRON 4 MG/2 ML VIAL IV ONE (13:12)
[2019-07-14] MEDS: HYDROmorphone 2 MG/ML VIAL IV PRN ×3 (13:19→15:26)
[2019-07-14 13:31] LABS: Basophils # (Auto) 0.07 K/mcL (0.00-0.30); Basophils % (Auto) 0.4 % (0.0-2.0); Eosinophils # (Auto) 0.11 K/mcL (0.00-0.70); Eosinophils % (Auto) 0.7 % (0.0-7.0); Granulocytes % (Auto) 81.8 % (38.0-78.0); Hematocrit 26.4 % (34.1-44.9); Hemoglobin 8.9 g/dL (11.2-15.7); Lymphocytes % (Auto) 7.4 % (15.5-49.0); Mean Cell Volume 98.1 fL (80.0-100.0); Mean Corpuscular HGB Conc 33.7 g/dL (31.0-36.0); Mean Platelet Volume 9.7 fL (7.4-10.4); Monocytes # (Auto) 1.56 K/mcL (0.10-0.90); Monocytes % (Auto) 9.7 % (1.0-12.0); Platelet Count 209 K/mcL (140-440); RBC 2.69 M/mcL (3.59-5.38); Red Cell Distribution Width 11.7 % (11.5-14.5); WBC 16.1 K/mcL (4.50-11.00)
[2019-07-14 13:39] LABS: INR 1.1 (0.9-1.1); Prothrombin Time 14.3 sec (11.9-14.5)
[2019-07-14 13:47] LABS: ALT/SGPT 13 U/l (0-40); AST/SGOT 20 U/l (0-37); Albumin 3.2 gm/dL (3.2-5.2); Albumin/Globulin Ratio 1.1 (1.0-2.3); Alkaline Phosphatase 52 U/L (39-117); Bilirubin,Total 0.5 mg/dL (0.0-1.0); Blood Urea Nitrogen 39 mg/dl (8-23); Calcium 8.5 mg/dl (8.6-10.4); Carbon Dioxide 21 mmol/L (22-30); Chloride 101 mmol/L (96-108); Globulin 2.8 gm/dL (2.2-3.7); Glomerular Filtration Rate 50; Glucose 163 mg/dL (70-105)
--- NOTE | 2019-07-14 14:34 | Cat Scan Report ---
CLINICAL INFORMATION: Trauma COMPARISON: 02/26/2018 TECHNIQUE: 2.5 mm helical slices were obtained in the skull base to vertex. Following reconstruction, axial reformatted images were reviewed at bone and parenchymal windows. The exam was performed using radiation dose optimization techniques including, but not limited to, automated exposure control, adjustment of the mA and/or kV according to patient size and use of iterative reconstruction technique. FINDINGS: The ventricles, sulci, fissures, and cisterns are symmetrically enlarged compatible with moderate age-related atrophy. No extra-axial fluid collections are identified. Mild patchy chronic ischemic changes in the deep cerebral white matter expected for age. The cerebrum, brainstem and cerebellum are, otherwise, unremarkable. There is no evidence of hemorrhage, mass effect, or edema. Bone windows show no osseous abnormality. IMPRESSION: Mild atrophy and chronic ischemic changes in the deep cerebral white matter - expected for age. No acute cerebral hemorrhage or posttraumatic change. Interpreted and Authenticated by: Tha Rios 07/14/19
--- NOTE | 2019-07-14 14:41 | Cat Scan Report ---
CLINICAL INFORMATION: Trauma COMPARISON: 02/26/2018 TECHNIQUE: 0.625 mm helical slices were obtained from the skull base through the superior T2 end plate, and following reconstruction, 2.5 mm sagittal, coronal and axial reformations were then processed. The exam was reviewed at bone and soft tissue windows. The exam was performed using radiation dose optimization techniques including, but not limited to, automated exposure control, adjustment of the mA and/or kV according to patient size and use of iterative reconstruction technique. FINDINGS: Sagittal reformatted images show 2 mm of C4 anterior subluxation which is unchanged from the 02/26/2018 CT. No posttraumatic subluxation. No fracture appreciated. The cervical cord is normal in contour and caliber without hemorrhage. No soft tissue abnormality. At C2-3, a small central disc protrusion is unchanged. C3-4, moderate broad disc spur complex and facet arthropathy results in severe central canal stenosis with cord impingement. No change. At C4-5, moderate broad disc protrusion results in moderate central canal stenosis At C5-6, moderate broad disc protrusion results in moderate central canal and right lateral recess/ IV foraminal stenosis. At C6-7, moderate broad disc spur complex results in moderate central canal and moderate left and mild right lateral recess stenosis At C7-T1, mild broad disc protrusion is appreciated IMPRESSION: 1. No fracture or other acute posttraumatic change 2. Multilevel degenerative change resulting in significant central canal, lateral recess and IV foraminal stenosis at the levels described - no change in 2018 comparison study however Interpreted and Authenticated by: Tha Rios 07/14/19
--- NOTE | 2019-07-14 14:44 | XRay Report ---
CLINICAL INFORMATION: fall, pain, edema COMPARISON: Right knee 06/04/2019 FINDINGS: Left knee: Severe patellofemoral and lateral tibiofemoral degenerative change with small suprapatellar effusion. Left knee: A severely comminuted, predominantly oblique, fracture through the distal femoral metadiaphysis is appreciated. The proximal diaphyseal fragment is displaced 2.5 cm medially and 2 cm posteriorly. Large effusion is appreciated. Moderate patellofemoral and tibiofemoral degenerative changes noted. IMPRESSION: Left knee: Severely comminuted, markedly displaced oblique fracture of the distal femoral metadiaphysis. Left knee: Moderate patellofemoral and tibiofemoral degeneration Right knee: No fracture. Severe patellofemoral and lateral tibiofemoral degenerative change Interpreted and Authenticated by: Tha Rios 07/14/19
[2019-07-14] MEDS ORDERED: 0.9 % SODIUM CHLORIDE 250 ML IV SCH ×2 (14:45→18:30)
--- NOTE | 2019-07-14 14:50 | XRay Report ---
CLINICAL INFORMATION: Trauma COMPARISON: 06/27/2017 FINDINGS: A mildly comminuted, minimally displaced subacute fracture of the first metatarsal head and neck appreciated with small amounts of healing bone. Moderate hammertoe deformities second through fifth digits appreciated. The second and third metatarsal heads show slight deformity suggesting malunified old fractures - they are unchanged from the comparison x-ray two years ago. Severe degenerative change in all of the MTT and moderate degenerative change in all MTP and interphalangeal joints have progressed. There is marked pes planus - as previously seen. Diffuse soft tissue swelling noted.. IMPRESSION: Comminuted oblique subacute fracture of the first metatarsal head and neck with small amount of healing bone. Mild deformity of the second and third metatarsal heads - identical to the comparison x-ray two years prior and compatible with mildly malunified old fractures Hammertoe deformities second through fifth digits Multilevel degeneration Pes planus Forefoot soft tissue swelling - likely posttraumatic Interpreted and Authenticated by: Tha Rios 07/14/19
--- NOTE | 2019-07-14 15:11 | Cat Scan Report ---
CLINICAL INFORMATION: Trauma COMPARISON: Abdomen and pelvic CT 02/27/2018. TECHNIQUE: Enteric contrast was utilized. 80 cc of Isovue-370 were injected intravenously, and 50 seconds later 2.5 mm helical slices were obtained from the lung apices through the subtrochanteric regions of the femurs. Following reconstruction, 2.5 mm sagittal, coronal and axial reformatted images were processed and reviewed at multiple windows and levels. 7 mm MIP reconstructions were obtained through the lungs to optimize nodule detection.The exam was performed using radiation dose optimization techniques including, but not limited to, automated exposure control, adjustment of the mA and/or kV according to patient size and use of iterative reconstruction technique. FINDINGS: Pulmonary parenchymal windows show mild chronic bronchitis and scattered tree-in-bud airspace disease in the right upper lobe - likely minor fibrosis. No posttraumatic contusion or other acute finding. The pleural spaces are normal - there is no evidence no hemothorax or pneumothorax. The mediastinal windows show the heart is normal in size with extremely heavy calcification within the mitral annulus. There is also aortic valve calcification. The thoracic aorta and pulmonary arteries are normal in diameter and well opacified without evidence of embolus.. Esophagus is grossly normal. There is no adenopathy in the mediastinal hilar or axillary region. No mediastinal hemorrhage. The thyroid is unremarkable. Abdominal images show the gallbladder and bile ducts, liver, both kidneys, adrenal glands, spleen, pancreas and aorta to be normal. There is no free air, free fluid or adenopathy. The stomach, small and large bowel are symmetrically dilated compatible with mild ileus. Pelvic images show urinary bladder is normal. Cardona catheter is in the urinary bladder. Uterus region is obscured by beam hardening artifact from right hip prosthesis - no gross abnormality. Bone windows show moderate chronic T11 and mild chronic L2 compression fractures which are stable from the previous exam. There are no acute fractures throughout the chest abdomen or pelvis. IMPRESSION: 1. No acute posttraumatic change. 2. Moderate chronic T11 and mild chronic L2 compression fractures. No acute fracture 3. Heavy calcification mitral annulus and aortic valves. 4. Mild chronic bronchitis and scarring in the right upper lobe. 5. Mild ileus Interpreted and Authenticated by: Tha Rios 07/14/19
--- NOTE | 2019-07-14 15:22 | XRay Report ---
CLINICAL INFORMATION: deformity, fall COMPARISON: None. FINDINGS: A severely comminuted, predominantly oblique, fracture through the distal femoral metadiaphysis appreciated. The proximal diaphyseal fragment is displaced 2.5 cm medially and 2 cm posteriorly. Moderate patellofemoral and tibiofemoral degenerative changes noted. Marked soft tissue swelling over the fracture site seen IMPRESSION: Severely comminuted and moderately displaced oblique fracture of the distal femoral metadiaphysis. Moderate degenerative change in the hip, patellofemoral and tibiofemoral joints. Interpreted and Authenticated by: Tha Rios 07/14/19
--- NOTE | 2019-07-14 15:27 | Emergency Department Note ---
Fall HPI - General Chief Complaint: Fall Stated Complaint: Fall Time Seen by Provider: 07/14/19 12:27 Source: patient, EMS Mode of arrival: EMS - History of Present Illness HPI Narrative: 89-year-old female presents with weakness, left leg deformity, bilateral knee pain, right hip pain, covered in feces, with generalized weakness and pain all over her whole body. States "I think my neck is broke ". Is complaining of headache and neck pain. Patient has dementia and is extremely poor historian. Arrives via EMS. EMS reports they go out on her frequently and the house is e xtremely cluttered and they often have to spend lots of time moving thinks he be able to even get to her. Apparently her daughter is her caregiver at home but the daughter has significant health issues herself and often cannot provide the care needed. Patient believes she was on the floor since last seen her daughter which was about 6 AM. She cannot recall the event, why she fell, but thinks her knee may have given out. She supposed be wearing a knee brace to the right knee but has not been. She states that her entire body hurts right now. Appears to have an obvious deformity to the left distal femur. Also has bilateral knee swelling and pain in the knees but she cannot tell us if that is new or not. She also has some bleeding to the left foot and pain in the left foot. She denies any upper extremity pain. No shortness of breath or difficulty breathing. She does report headache and neck pain. No back pain Associated symptoms (after fall): Denies: numbness (No numbness or tingling.) - Related Data Home Medications Medication Instructions Recorded Confirmed aspirin 81 mg tablet,delayed 162 mg PO QDAY tab 01/10/15 10/21/18 release B-complex with vitamin C PO 10/20/18 10/21/18 calcium carbonate 600 mg calcium 600 mg PO QDAY tab 10/20/18 10/21/18 (1,500 mg) tablet hydrocortisone 2.5 % topical cream 1 applic TOPICAL BID 10/20/18 10/21/18 potassium PO QDAY 10/20/18 10/21/18 Previous Rx's Medication Instructions Recorded ascorbate calcium (vitamin C) 500 500 mg PO QDAY #30 tab 03/18/17 mg tablet cyanocobalamin (vitamin B-12) 2,500 mcg PO QHS #30 tab 03/18/17 2,500 mcg tablet lisinopril 10 mg tablet 5 mg PO QDAY 30 Days #15 tab 11/01/17 verapamil 120 mg 24 hr 120 mg PO DAILY #30 cap24h.pel 01/16/18 capsule,extended release furosemide 20 mg tablet 20 mg PO QDAY PRN #30 tab 03/14/18 hydrocodone 10 mg-acetaminophen 1 tab PO Q6H PRN #120 tab 04/09/18 325 mg tablet HYDROcodone/APAP 10/325MG [[place] 1 tab PO Q6H PRN #10 tab 06/09/18 10-325Mg] chlorhexidine gluconate 2 % 2 % TOPICAL DAILY #30 each 06/09/18 towelette Allergies Allergy/AdvReac Type Severity Reaction Status Date / Time Sulfa (Sulfonamide Allergy Mild Rash Verified 07/14/19 12:31 Antibiotics) apixaban [From Eliquis] AdvReac Intermediate rectal Verified 07/14/19 12:31 bleeding Review of Systems All systems ED: reviewed and negative except as stated. Fall PMH - Past Medical History [facility] Narrative: Extremely poor historian and difficult to get information from. 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) Other amnesia (Chronic) Chronic atrial fibrillation (Chronic) Chronic kidney disease, stage 3 (moderate) (Chronic) Renal osteodystrophy (Chronic) Vitamin D deficiency, unspecified (Chronic) 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) Hyperlipidemia, unspecified (Chronic) Major depressive disorder, single episode, unspecified (Chronic) Anemia (Chronic) GI bleed (Resolved) Memory changes (Chronic) Depression (Chronic) Parkinsonian features (Chronic) Hallucinations (Resolved) 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) Osteoporosis (Chronic) Fracture lumbar vertebra-closed (Chronic) Abnormal finding on thyroid function test (Resolved) Abscess of anal and rectal regions (Resolved) Cellulitis of leg (Resolved) Closed hip fracture (Resolved 09/14/13) Complicated UTI (urinary tract infection) (Resolved) Edema (Resolved) Hyponatremia (Resolved) Irregular heart rhythm (Resolved) Left lower lobe pulmonary infiltrate (Resolved) Pneumonia (Resolved) Pressure ulcer of foot, stage 1 (Resolved) Rectal bleeding (Resolved) Skin lesion of right lower extremity (Resolved) Transient hypertension of , with delivery (Resolved) Venous stasis ulcer (Resolved) Wrist fracture, closed (Resolved) Degenerative arthritis of foot (Inactive) Past Surgical History (Last Reviewed 10/21/18 @ 14:53 by Bouchra Yen RN) S/P tonsillectomy (Chronic) Status post amputation of right great toe (Chronic) History of amputation (Resolved) History of tonsillectomy (Resolved) Medical history: Reports: dementia, DM (With neuropathy), hypertension, osteoporosis (With compression fracture), other (Hereditary hemochromatosis) - Social History smoking status: Never smoker Alcohol use: Reports: None Drug use: Reports: none Physical Exam Limitations: altered mental status (Extremely poor historian and forgetful) General appearance: alert (Is not oriented to person, place, or time but does k now she is here because she fell and is hurting.), grimacing, other (Patient arrives covered in feces) Head: atraumatic, normocephalic, normal inspection Eye: Present: normal appearance, PERRL, EOMI. Absent: conjunctival injection, nystagmus ENT: Present: normal exam, mucous membranes moist, TM's normal bilaterally, normal external ear exam Neck: Present: trachea midline. Absent: full ROM (Midline cervical spine tenderness with palpation. No step-off or deformity. Placed in c-collar and full C-spine precautions) Chest: Present: symmetric chest wall rise Respiratory: Present: normal lung sounds bilaterally, decreased breath sounds (Slightly decreased in the bases bilaterally otherwise clear throughout). Absent: respiratory distress, rales/crackles, accessory muscle use Cardiovascular: Present: regular rate, normal heart sounds Abdominal: Present: soft, normal bowel sounds. Absent: distention, tenderness, guarding, rigidity Extremities: Absent: normal inspection (Right hip pain with decreased range of motion related to pain. No step-off or deformity. Right knee with diffuse edema and bruising in various stages. Left knee with diffuse edema and bruising in various stages as well as a distal femur deformity on the left that is diffusely tender. Left foot with diffuse pain but hard to pinpoint tenderness. The third digit on the left foot has a completely avulsed nail and nailbed. Minimal active bleeding present.) Neurological: Present: alert. Absent: oriented X3 Psychiatric: Present: normal affect, normal mood Skin: Present: warm, dry. Absent: normal color (Pale) Course Course Narrative: Head and neck CT without acute findings. C-collar removed and patient's neck pain improved after c-collar was removed. Does have good range of motion. At 1500 I did speak with orthopedics on-call, Dr. Soares agrees to accept this patient however he would like us to consult with the hospitalist and have the hospitalist admit. We do have a call into them. He also like us to put this patient in some traction which we are working on. career services coordinator, [facility] and with the patient and family, At 1520 I did speak with the hospitalist, Dr. Flores who agrees to accept this patient. Vital Signs Temperature 95.9 F L 07/14/19 12:13 Pulse Rate 83 07/14/19 12:13 Respiratory Rate 13 07/14/19 12:13 Blood Pressure 145/120 07/14/19 12:13 Temperature 94.3 F L 07/14/19 14:46 Pulse Rate 84 07/14/19 14:46 Respiratory Rate 17 07/14/19 14:46 Blood Pressure 108/72 07/14/19 14:46 Pulse Oximetry (%) 100 07/14/19 14:46 Fall - Lab Data Lab results reviewed: Yes I reviewed the patient's lab results. Result diagrams: 07/14/19 12:53 07/14/19 12:53 Lab Results 07/14/19 07/14/19 07/14/19 Range/Units 12:53 12:53 12:53 WBC 16.1 H (4.50-11.00) K/mcL RBC 2.69 L (3.59-5.38) M/mcL Hgb 8.9 L (11.2-15.7) g/dL Hct 26.4 L (34.1-44.9) % POC Hct 25.0 L (36.0-48.0) % MCV 98.1 (80.0-100.0) fL MCH 33.1 (26.0-34.0) pg MCHC 33.7 (31.0-36.0) g/dL RDW 11.7 (11.5-14.5) % Plt Count 209 (140-440) K/mcL MPV 9.7 (7.4-10.4) fL Gran % 81.8 H (38.0-78.0) % Lymph % (Auto) 7.4 L (15.5-49.0) % [place] % (Auto) 9.7 (1.0-12.0) % Eos % (Auto) 0.7 (0.0-7.0) % Baso % (Auto) 0.4 (0.0-2.0) % Gran # 13.17 H (1.80-8.00) K/mcL Lymph # (Auto) 1.20 L (1.50-4.80) K/mcL [place] # (Auto) 1.56 H (0.10-0.90) K/mcL Eos # (Auto) 0.11 (0.00-0.70) K/mcL Baso # (Auto) 0.07 (0.00-0.30) K/mcL PT 14.3 (11.9-14.5) sec INR 1.1 (0.9-1.1) POC Sodium 133 (133-145) mmol/L Sodium 135 (133-145) mmol/L POC Potassium 4.8 (3.3-5.1) mmol/L Potassium 4.8 (3.3-5.1) mmol/L POC Chloride 100 (96-108) mmol/L Chloride 101 (96-108) mmol/L Carbon Dioxide 21 L (22-30) mmol/L POC Total CO2 24 (22-30) mmol/L Anion Gap 13.0 (8-16) POC BUN 38 H (8-23) mg/dl BUN 39 H (8-23) mg/dl Creatinine 1.0 (0.6-1.1) mg/dl POC Creatinine 0.9 (0.6-1.1) mg/dl GFR Calculation 50 Glucose 163 H (70-105) mg/dL POC Glucose 159 H (70-105) mg/dL Calcium 8.5 L (8.6-10.4) mg/dl POC WB Ioniz Calcium 1.14 L (1.16-1.32) mmol/L Total Bilirubin 0.5 (0.0-1.0) mg/dL AST 20 (0-37) U/l ALT 13 (0-40) U/l Alkaline Phosphatase 52 (39-117) U/L Total Protein 6.0 (5.9-8.4) gm/dL Albumin 3.2 (3.2-5.2) gm/dL Globulin 2.8 (2.2-3.7) gm/dL Albumin/Globulin Ratio 1.1 (1.0-2.3) - Radiology Data Radiology results reviewed: Yes I reviewed the patient's radiology results. Disposition Pt seen by [facility]/PA only: Yes Clinical Impression: Fall, Femur fracture, left, Foot fracture, left, Nail avulsion of toe, Minor head injury, Neck pain, Multiple contusions, Bilateral knee pain Anemia Qualifiers: Anemia type: unspecified type Qualified Code(s): D64.9 - Anemia, unspecified Disposition: Xfer As Inpt ([facility]) Condition: Fair Referrals: Leonor Bond, KIMBERLY, BEATER ROOM SUPERVISOR [Primary Care Provider] - Parrish Soares MD [Physician] - Time of Disposition: 15:33
--- NOTE | 2019-07-14 15:32 | Internal Med History&Physical ---
Medical - H&P: [facility] Patient information: Note initiated : 07/14/19 at 3:28 pm Service Date, if different from initiated Date: [] Patient: Nayely Zhao a 89 y/o F admitted on for Fall. Chief Complaint: [] Chief complaint: Fall History of present illness: Ms. Zhao is a 89 year old F with advanced dementia residing with her daughter and presents to the emergency room following unwitnessed fall and was evaluated by EMS with bilateral knee pain/left leg deformity and generalized pain. Following presentation to [facility] ER she underwent extensive work-up including whole-body imaging. Imaging revealed left femur fracture. Dr. Soares orthopedic was consulted and recommended operative intervention. Orthopedics recommended to use a blood transfusion prior to surgery in light of hemoglobin 8.9. Patient was also found to be hypothermic at 94 and underwent active rewarming Subsequently hospitalist service was requested for admission. The time evaluation patient is alert. She was able to answer some of the questions. She could not recall the events prior to the fall or recollect episodes of dizziness lightheadedness. She denies fever or chest pain. She endorses pain during movement of left extremity. 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) Chronic kidney disease, stage 3 (moderate) (Chronic) Dizziness (Acute) Anemia (Acute) Memory changes (Chronic) Depression (Acute) PHQ9 score of 11, 08/2017; patient declines counseling or medications for treatment Atrial fibrillation (Chronic) Parkinsonian features (Acute) Edema (Chronic) has taken a diuretic when this occurs Irregular heart rhythm (Acute) Hallucinations (Chronic) Intermittent; sometimes auditory, sometimes visual 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 Almanza made diagnosis Abnormal finding on thyroid function test (Resolved) Closed hip fracture (Resolved 09/14/13) Right, following a fall - Trip over velcro strap of her shoes Skin lesion of right lower extremity (Resolved) right small toe, lateral aspect Transient hypertension of , with delivery (Resolved) Wrist fracture, closed (Resolved) left wrist Surgical History S/P tonsillectomy (Chronic) Status post amputation of right great toe (Chronic) "After Gangrenous Necrotic Infection" History of amputation (Resolved) 05/2011 Amputation of right great toe after gangrenous necrotic infection History of tonsillectomy (Resolved) As a teenager Family History Father Type 2 diabetes mellitus Paternal Grandfather Type 2 diabetes mellitus Social History household members: family housing: house lives independently: No marital status: occupational status: retired pets and animals: Yes pets and animals: cat(s), dog(s) sexually active: No well-balanced diet: daily or most days daily servings fruits/ve-4 during the past year weight has: remained stable physical activity: none smoking status: Never smoker alcohol intake frequency: does not drink substance use type: does not use mari/pentecostal: [facility] seatbelt use: always working smoke detector in home: No Medical - H&P: Meds Home Medications Medication Instructions Recorded Confirmed Type verapamil 120 mg 24 hr 120 mg PO DAILY #30 cap24h.pel 01/16/18 07/14/19 Rx capsule,extended release furosemide 20 mg tablet 20 mg PO QDAY PRN #30 tab 03/14/18 07/14/19 Rx hydrocodone 10 mg-acetaminophen 1 tab PO Q6H PRN #120 tab 04/09/18 07/14/19 Rx 325 mg tablet Allergies Allergy/AdvReac Type Severity Reaction Status Date / Time Sulfa (Sulfonamide Allergy Mild Rash Verified 07/14/19 12:31 Antibiotics) apixaban [From Eliquis] AdvReac Intermediate rectal Verified 07/14/19 12:31 bleeding Medical - H&P: Exam - Constitutional Vitals: Temp Pulse Resp BP Pulse Ox 94.9 F L 103 H 23 H 87/52 100 07/14/19 15:16 07/14/19 15:16 07/14/19 15:16 07/14/19 15:16 07/14/19 15:16 General appearance: no acute distress Exam: Respond to commands Confused Head normocephalic Oral cavity dry no ear nose discharge Neck lymphadenopathy S1-S2 regular rhythm ESM grade 1 Diminished breath sounds bases Abdomen soft nontender Left lower extremity externally rotated and shortened No cyanosis lymphedema or clubbing Skin no suspicious lesion except for bruising Psych alert but confused Neuro nonfocal Medical - H&P: Reslt - Labs CBC & Chem 7: 07/15/19 04:49 07/15/19 04:48 Labs: Short CBC 07/14/19 Range/Units 12:53 WBC 16.1 H (4.50-11.00) K/mcL Hgb 8.9 L (11.2-15.7) g/dL Hct 26.4 L (34.1-44.9) % Plt Count 209 (140-440) K/mcL BMP 07/14/19 12:53 Sodium 135 Potassium 4.8 Chloride 101 Carbon Dioxide 21 L BUN 39 H Creatinine 1.0 Glucose 163 H Calcium 8.5 L Liver Function 07/14/19 Range/Units 12:53 Total Bilirubin 0.5 (0.0-1.0) mg/dL AST 20 (0-37) U/l ALT 13 (0-40) U/l Alkaline Phosphatase 52 (39-117) U/L Albumin 3.2 (3.2-5.2) gm/dL Medical - H&P: A/P (1) Femur fracture, left Current visit: Yes Status: Acute * Left femur fracture-orthopedics consulted. Pain management/operative intervention per orthopedics * Preop risk evaluation-overall high risk candidate based on RCRI [place] [employer] recertification with advanced age/underlying comorbidities including extremely poor functional status/type 2 diabetes. * Leukocytosis-rule out infectious etiology. Likely stress response. * Hypothermia resolved after active rewarming. Monitor electrolytes * Blood loss anemia requiring transfusion. PRBC 1 unit today and recheck. Likely secondary to extravasation at the fracture site * Atrial fibrillation-on verapamil, rate controlled. Aspirin for CVA prophylaxis * Dementia- stable , continue home medications * Hypertension continue home dose lisinopril * Type 2 diabetes mellitus-basal prandial insulin * DVT prophylaxis subcu heparin * Full code Plan * Inpatient admission * Orthopedic consult * PRBC transfusion * Pain management/postoperative care per orthopedics * Pre-existing medical mission management on home medications * PT OT nutrition support * Case management to coordinate SNF transfer in light advance age/dementia/deconditioning and need for postoperative and posthospitalization rehab
[2019-07-14] MEDS: 0.9 % SODIUM CHLORIDE 1,000 ML IV SCH ×3 (15:58→19:13)
[2019-07-14 16:10] LABS: Appearance,Urine HAZY; Bilirubin,Urine NEG (NEG); Color,Urine AMBER; Culture Indicated,Urine NO; Glucose,Urine (UA) NEGATIVE (NEG); Ketones,Urine NEG (NEG); Leukocyte Esterase,Urine NEG /uL (NEG); Nitrate,Urine NEG (NEG); Protein,Urine NEG (NEG); Specific Gravity,Urine 1.019 (1.000-1.035); Urine Blood NEG mg/dL (<0.03); Urobilinogen,Urine NEG (NEG)
[2019-07-14 17:20] LABS: Creatine Kinase MB 6.6 ng/ml (0-2.9)
[2019-07-14] MEDS ORDERED: 0.9 % SODIUM CHLORIDE 500 ML IV ONE (17:45)
[2019-07-14] MEDS ORDERED: POLYETHYLENE GLYCOL 3350 17 GM PACKET PO PRN (17:48)
[2019-07-14] MEDS ORDERED: ACETAMINOPHEN 325 MG TABLET PO PRN (17:48)
[2019-07-14] MEDS ORDERED: ONDANSETRON 4 MG ODT TABLET SL PRN (17:48)
[2019-07-14] MEDS ORDERED: MELATONIN 3 MG TABLET PO PRN (17:48)
[2019-07-14] MEDS ORDERED: ACETAMINOPHEN 650 MG/65 ML BOTTLE IV PRN (17:48)
[2019-07-14] MEDS ORDERED: ONDANSETRON 4 MG/2 ML VIAL IV PRN (17:48)
[2019-07-14] MEDS ORDERED: 0.9 % SODIUM CHLORIDE 1,000 ML IV SCH (17:48)
[2019-07-14] MEDS ORDERED: MAGNESIUM SULFATE 2 GM/50 ML BAG IV PRN (17:48)
[2019-07-14] MEDS ORDERED: BISACODYL 10 MG SUPP.RECT PR PRN (17:48)
[2019-07-14] MEDS ORDERED: POTASSIUM CHLORIDE 20 MEQ PACKET PO PRN (17:48)
[2019-07-14] MEDS ORDERED: DEXTROSE 50% 50 ML VIAL IV PRN (19:08)
[2019-07-14] MEDS ORDERED: DEXTROSE 31 GM ORAL.SUSP PO PRN (19:08)
--- NOTE | 2019-07-14 19:40 | History and Physical Report ---
DATE OF ADMISSION: 07/14/2019 IDENTIFICATION: This is an 89-year-old female. CHIEF COMPLAINT: She has had a left supracondylar femur fracture. HISTORY: This elderly lady fell last night. There is not a clearcut timeline as to her fall and she does not specifically remember the event. She apparently laid on the floor, was ultimately found, and was transported to [facility] with pain on the left supracondylar femur/knee and was unable to bear weight. She has radiographs demonstrating supracondylar femur fracture and we are now called for further evaluation and management. She also has a nail bed avulsion on left third toe with some bleeding, but no evidence of an open fracture. On presentation, the patient is reasonably comfortable as long as she is not moving, but any motion of this left supracondylar or the left lower extremity causes pain. PAST MEDICAL HISTORY: Significant for hypertension, diabetes, apparently atrial fibrillation. She does have a history of dementia. PAST SURGICAL HISTORY: Not particularly pertinent to this specific problem. She does have also a history of some renal disease. PHYSICAL EXAMINATION: GENERAL: She is awake and alert. She does generally respond appropriately, but does seem to have an element of confusion. HEAD: Normocephalic, atraumatic. EYES: PERRLA. Conjunctivae clear. ENT: Within normal limits. NECK: Supple without pain on range of motion. HEART: Irregular. LUNGS: Clear. ABDOMEN: Benign. EXTREMITIES: Her left lower extremity is markedly deformed. She has no gross neurovascular deficit. IMAGING DATA: Her radiographs demonstrate a fracture of the left supracondylar femur. This was significantly displaced. IMPRESSION: Left femur fracture. PLAN: We have discussed treatment options. The patient seems to grasp certain concepts about surgery. I have spoken with the granddaughter over the phone. They would like to move toward surgical intervention. It does seem that they maybe do not completely understand the extent of her multiple medical problems. The patient does have several active issues such as low hemoglobin and again has been down on the floor for an extended period of time. We will wait to do surgical intervention until hospitalist has thoroughly evaluated and she has been stabilized overnight. We would then plan possible reduction and internal fixation. GDD:ino Job ID: [id number] Doc ID: [id number] Parrish Soares MD
[2019-07-14] MEDS: SENNOSIDES/DOCUSATE SODIUM 1 TAB TABLET PO SCH (20:25)
[2019-07-14] MEDS: DOCUSATE SODIUM 100 MG CAPSULE PO SCH (20:26)
[2019-07-14] MEDS: CYANOCOBALAMIN (VITAMIN B-12) 500 MCG TABLET PO SCH (20:26)
[2019-07-14] MEDS: HEPARIN 5,000 UNIT/ML VIAL SQ SCH (20:29)
[2019-07-14] MEDS: INSULIN LISPRO 1 UNIT/0.01 ML UNIT SQ SCH (20:29)
[2019-07-14] MEDS: 0.9 % SODIUM CHLORIDE 10 ML SYRINGE IV SCH (20:30)
[2019-07-15] MEDS: 0.9 % SODIUM CHLORIDE 1,000 ML IV SCH ×3 (01:28→17:00)
[2019-07-15] MEDS: HYDROmorphone 2 MG/ML VIAL IV PRN ×2 (01:29→18:03)
[2019-07-15 06:07] LABS: Hematocrit 24.5 % (34.1-44.9); Mean Corpuscular HGB Conc 32.7 g/dL (31.0-36.0); Mean Platelet Volume 9.7 fL (7.4-10.4); Platelet Count 155 K/mcL (140-440); Red Cell Distribution Width 13.9 % (11.5-14.5); WBC 10.3 K/mcL (4.50-11.00)
[2019-07-15 06:21] LABS: ALT/SGPT 15 U/l (0-40); AST/SGOT 23 U/l (0-37); Albumin 2.8 gm/dL (3.2-5.2); Alkaline Phosphatase 47 U/L (39-117); Bilirubin,Direct < 0.2 mg/dL (0.0-0.3); Bilirubin,Total 0.8 mg/dL (0.0-1.0); Blood Urea Nitrogen 32 mg/dl (8-23); Carbon Dioxide 20 mmol/L (22-30); Chloride 102 mmol/L (96-108); Globulin 2.7 gm/dL (2.2-3.7); Glomerular Filtration Rate 66; Glucose 148 mg/dL (70-105); Lactate Dehydrogenase 200 U/L (94-250); Triglycerides 64 mg/dl (<150); Uric Acid 5.7 mg/dL (2.5-8.0)
[2019-07-15 06:52] LABS: Lymphocytes % 7 % (15-49); Monocytes % (Manual) 2 % (1-12); Platelet Estimate NORMAL (NORMAL); RBC Morphology NORMAL (NORMAL); Reactive Lymphocytes 2 % (0-2); Segmented Neutrophils % 89 % (38-78)
[2019-07-15] MEDS: 0.9 % SODIUM CHLORIDE 10 ML SYRINGE IV SCH ×3 (07:56→21:07)
[2019-07-15] MEDS: INSULIN LISPRO 1 UNIT/0.01 ML UNIT SQ SCH ×4 (07:57→21:06)
[2019-07-15] MEDS: THIAMINE 100 MG TABLET PO SCH (09:40)
[2019-07-15] MEDS: CYANOCOBALAMIN (VITAMIN B-12) 500 MCG TABLET PO SCH ×2 (09:40→21:01)
[2019-07-15] MEDS: HEPARIN 5,000 UNIT/ML VIAL SQ SCH ×2 (09:40→21:01)
[2019-07-15] MEDS: MULTIVIT,THER IRON,CA,FA & MIN 1 TABLET PO SCH (09:40)
[2019-07-15] MEDS: DOCUSATE SODIUM 100 MG CAPSULE PO SCH ×2 (09:40→21:00)
[2019-07-15] MEDS ORDERED: ceFAZolin 2 GM in DEXTROSE 5% IN WATER 50 ML IV SCH (11:15)
[2019-07-15] MEDS ORDERED: 0.9 % SODIUM CHLORIDE 250 ML IV SCH (12:15)
--- NOTE | 2019-07-15 13:12 | Internal Med Progress Note ---
Medical - PN: Subj Patient information: Note initiated : 07/15/19 at 1:09 pm Service Date, if different from initiated Date: [] Patient: Nayeyl Zhao a 89 y/o F admitted on 07/14/19 for Fall. Chief Complaint: [] Interval history: Ms. Zhao is a 89 year old F with advanced dementia residing with her daughter and presents to the emergency room following unwitnessed fall and was evaluated by EMS with bilateral knee pain/left leg deformity and generalized pain. Following presentation to [facility] ER she underwent extensive work-up including whole-body imaging. Imaging revealed left femur fracture. Dr. Ky nuno orthopedic was consulted and recommended operative intervention. Orthopedics recommended to use a blood transfusion prior to surgery in light of hemoglobin 8.9. Patient was also found to be hypothermic at 94 and underwent active rewarming Subsequently hospitalist service was requested for admission. The time evaluation patient is alert. She was able to answer some of the questions. She could not recall the events prior to the fall or recollect episodes of dizziness lightheadedness. She denies fever or chest pain. She endorses pain during movement of left extremity. 07/14-hemoglobin down to 8 following transfusion. White count down to 10.3, additional 1 unit transfusion today. You for surgery today. No modifiable risk factor. Case discussed with Dr. Soares orthopedics. Will review postoperatively. Patient remains high risk operative morbidity and mortality in light of advanced age and underlying diabetes/dementia and deconditioning with poor functional status. - Constitutional Vitals: Vital Signs Temp Pulse Resp BP Pulse Ox 99.9 F H 106 H 16 132/63 100 07/15/19 07:57 07/15/19 11:51 07/15/19 11:29 07/15/19 11:29 07/15/19 11:51 Period Temp Pulse Resp BP Sys/Benedict Pulse Ox Last 24 Hr 94.2 F-100.0 F 76-139 10-36 78-143/21-105 78-100 Intake and Output 07/14/19 07/15/19 07/15/19 21:59 05:59 13:59 Intake Total 2001 Output Total 975 Balance 2001 Weight 165 lb Intake & Output: Intake & Output 07/14/19 07/15/19 07/15/19 21:59 05:59 13:59 Intake Total 2001 Output Total 975 Balance 2001 Weight 165 lb Intake: IV 1677 Sodium Chloride 0.9% 1,000 ml @ 1177 100 mls/hr IV .Q10H [facility] Rx#: [id number] Sodium Chloride 0.9% 500 ml @ 500 Wide Open IV BOLUS ONE Rx#: [id number] Blood Product 325 Output: Urine Catheter Amount 975 Other: Urine Appearance Clear Uretheral (Cardona) Clear Urine Color Bright Yellow Uretheral (Cardona) Bright Yellow General appearance: no acute distress Exam: Pleasantly confused Minimal distress from pain Nonlabored breathing Minimal pallor Medical - PN: Obj Da - Labs CBC & Chem 7: 07/15/19 04:49 07/15/19 04:48 Labs: Abnormal Lab Results 07/15/19 07/15/19 07/14/19 04:49 04:48 12:53 WBC RBC 2.50 L Hgb 8.0 L Hct 24.5 L POC Hct Gran % Lymph % (Auto) Gran # Lymph # (Auto) [place] # (Auto) Seg Neutrophils % 89 H Lymphocytes % 7 L Sodium 132 L Carbon Dioxide 20 L POC BUN BUN 32 H Glucose 148 H POC Glucose Calcium 8.0 L POC WB Ioniz Calcium Total Creatine Kinase 181 H CK-MB (CK-2) 6.6 H Total Protein 5.5 L Albumin 2.8 L 07/14/19 07/14/19 12:53 12:53 WBC 16.1 H RBC 2.69 L Hgb 8.9 L Hct 26.4 L POC Hct 25.0 L Gran % 81.8 H Lymph % (Auto) 7.4 L Gran # 13.17 H Lymph # (Auto) 1.20 L [place] # (Auto) 1.56 H Seg Neutrophils % Lymphocytes % Sodium Carbon Dioxide 21 L POC BUN 38 H BUN 39 H Glucose 163 H POC Glucose 159 H Calcium 8.5 L POC WB Ioniz Calcium 1.14 L Total Creatine Kinase CK-MB (CK-2) Total Protein Albumin Meds: Medications Acetaminophen (Tylenol) 650 mg PO Q4-6HP PRN; Protocol PRN Reason: Per Pain Protocol/Fever > 101 Bisacodyl (Dulcolax) 10 mg [place] Q2-3DAYS PRN PRN Reason: Constipation Cyanocobalamin (Vitamin B-12) 1,000 mcg PO BID [facility] Stop: 07/19/19 09:01 Last Admin: 07/15/19 09:40 Dose: Not Given Documented by: Dextrose (Dextrose 50%) 0 ml IV UD PRN PRN Reason: Hypoglycemia Diagnostic Test (Pha) (Accu-Chek) 1 each FS ACHS [facility] Last Admin: 07/15/19 11:57 Dose: Not Given Documented by: Docusate Sodium (Colace) 100 mg PO BID [facility] Last Admin: 07/15/19 09:40 Dose: Not Given Documented by: Glucose (Insta-Glucose) 15 gm PO PRN PRN PRN Reason: Hypoglycemia Heparin Sodium (Porcine) (Heparin) 5,000 unit SQ Q12 [facility] Last Admin: 07/15/19 09:40 Dose: Not Given Documented by: Hydromorphone HCl (Dilaudid) 0 mg IV Q4HP PRN; Protocol PRN Reason: Per Pain Protocol Last Admin: 07/15/19 01:29 Dose: 0.5 mg Documented by: Acetaminophen (Ofirmev) 650 mg in 65 mls @ 130 mls/hr IV Q6HP PRN; Protocol PRN Reason: Per Pain Protocol/Fever > 101 Magnesium Sulfate (Magnesium Sulfate) 2 gm in 50 mls @ 50 mls/hr IV UD PRN PRN Reason: MG = or < 1.7 Sodium Chloride (Sodium Chloride 0.9%) 1,000 mls @ 100 mls/hr IV .Q10H [facility] Stop: 07/16/19 01:08 Last Admin: 07/15/19 03:16 Dose: Not Given Documented by: Cefazolin Sodium 2 gm/ (Dextrose) 50 mls @ 100 mls/hr IV PREOP [facility]; Protocol Stop: 07/15/19 16:00 Last Admin: 07/15/19 13:04 Dose: 100 mls/hr Documented by: Sodium Chloride (Sodium Chloride 0.9%) 250 mls @ 20 mls/hr IV .[id number] [facility] Stop: 07/16/19 00:44 Insulin Human Lispro (Humalog) 0 unit SQ ACHS [facility]; Protocol Last Admin: 07/15/19 11:57 Dose: Not Given Documented by: Iron Carb/Multivit/Sebastian/Folic Acid (Multivitamin W/Minerals) 1 tab PO DAILY [facility] Last Admin: 07/15/19 09:40 Dose: Not Given Documented by: Melatonin (Melatonin 3mg Tablet) 3 mg PO HSP PRN PRN Reason: Insomnia Ondansetron HCl (Zofran Odt) 4 mg SL Q4-6HP PRN; Protocol PRN Reason: Nausea And Vomiting Ondansetron HCl (Zofran) 4 mg IV Q4-6HP PRN; Protocol PRN Reason: Nausea And Vomiting Polyethylene Glycol (Miralax) 17 gm PO DAILYP PRN PRN Reason: Constipation Potassium Chloride (Klor-Con) 40 meq PO DAILYP PRN PRN Reason: K+ < 3.5 Senna/Docusate Sodium (Senna Plus Tablet) 1 tab PO HS [facility] Last Admin: 07/14/19 20:25 Dose: 1 tab Documented by: Sodium Chloride (Saline Flush) 10 ml IV Q8 [facility] Last Admin: 07/15/19 07:56 Dose: Not Given Documented by: Thiamine HCl (Vitamin B1) 100 mg PO DAILY [facility] Last Admin: 07/15/19 09:40 Dose: Not Given Documented by: Medical - PN: A/P - Time Spent With Patient Total time spent is greater than 50% in coordination of care (as documented) at patient's floor/unit and/or counseling patient: (1) Femur fracture, left Status: Acute Assessment and plan: * Left femur fracture-will undergo operative intervention today. Review postop. * Preop risk evaluation-overall high risk operative candidate based on R[employer] [place] [employer] recertification with advanced age/underlying comorbidities including extremely poor functional status/type 2 diabetes. However no modifiable risk factor at this time * Leukocytosis-resolved * Hypothermia resolved after active rewarming. Electrolytes within normal limits * Blood loss anemia requiring transfusion. Hemoglobin 8 despite 1 unit PRBC. Additional 1 unit transfusion * Atrial fibrillation-continue verapamil, rate controlled. Aspirin for CVA prophylaxis * Dementia- stable , continue home medications * Hypertension continue home dose lisinopril * Type 2 diabetes mellitus-basal prandial insulin * DVT prophylaxis subcu heparin * Full code Plan * Review postop * Additional 1 unit PRBC transfusion * Dementia care/fall watch * Pain management/postoperative care per orthopedics * Continue pre-existing medical mission management on home medications * PT OT nutrition support * Case management to coordinate SNF transfer in light advance age/dementia/deconditioning and need for postoperative and posthospitalization rehab Current Visit: Yes Medical - PN: Qual - VTE Deep Vein Thrombosis/Pulmonary Embolism Present on Admission: No
[2019-07-15] MEDS ORDERED: VANCOMYCIN 1,000 MG in 0.9 % SODIUM CHLORIDE 250 ML IV SCH (13:15)
[2019-07-15] MEDS ORDERED: PHENYLEPHRINE 10 MG/ML VIAL ONE (13:25)
[2019-07-15] MEDS ORDERED: KETAMINE 100 MG/ML ML ONE (13:25)
[2019-07-15] MEDS ORDERED: GLYCOPYRROLATE 0.2 MG/ML VIAL IV ONE (13:25)
[2019-07-15] MEDS ORDERED: LIDOCAINE HCL/PF 100 MG/5 ML SYRINGE IV ONE (13:25)
[2019-07-15] MEDS ORDERED: PROPOFOL 200 MG/20 ML VIAL IV ONE (13:25)
[2019-07-15] MEDS ORDERED: DEXAMETHASONE 10 MG/ML VIAL ONE (13:25)
[2019-07-15] MEDS ORDERED: ONDANSETRON 4 MG/2 ML VIAL ONE (13:25)
[2019-07-15] MEDS ORDERED: FUROSEMIDE 20 MG TABLET PO PRN (15:08)
[2019-07-15] MEDS ORDERED: HYDROcodone/APAP 10/325MG TABLET PO PRN (15:08)
--- NOTE | 2019-07-15 15:08 | Orthopedic Procedure Note ---
Date of procedure: Note initiated : 07/15/19 at 3:07 pm Service Date, if different from initiated Date: [] Pre-op diagnosis: L supracondylar femur Post-op diagnosis: same Procedure: ORIF Grafts/Implants: Peter Anesthesia: TAMIKA Surgeon: Parrish Soares Game Agent: Luis Miguel Addison Estimated blood loss: 100 Pathology: none sent Condition: stable Disposition: floor
[2019-07-15] MEDS ORDERED: LACTATED RINGERS 250 ML IV PRN (15:45)
[2019-07-15] MEDS ORDERED: LACTATED RINGERS 1,000 ML IV SCH (15:45)
[2019-07-15] MEDS ORDERED: fentaNYL 100 MCG/2 ML VIAL IV PRN (15:45)
[2019-07-15] MEDS ORDERED: METHOCARBAMOL 1,000 MG/10 ML VIAL IV PRN (15:45)
[2019-07-15] MEDS ORDERED: IPRATROPIUM/ALBUTEROL 3 ML AMPUL.NEB NEB PRN (15:45)
[2019-07-15] MEDS ORDERED: ONDANSETRON 4 MG/2 ML VIAL IV PRN (15:45)
[2019-07-15] MEDS ORDERED: BENZOCAINE/MENTHOL 1 LOZENGE PO PRN (15:45)
[2019-07-15] MEDS ORDERED: FLUMAZENIL 0.1 MG/ML ML IV PRN (15:45)
[2019-07-15] MEDS ORDERED: NALOXONE HCL 0.4 MG/ML VIAL IV PRN (15:45)
[2019-07-15] MEDS ORDERED: ACETAMINOPHEN 1,000 MG/100 ML BOTTLE IV ONE (15:45)
--- NOTE | 2019-07-15 18:51 | XRay Report ---
CLINICAL INFORMATION: left distal femur ORIF COMPARISON: None. FINDINGS: Limited from the OR show reduction of severely comminuted fractures of the distal femoral metadiaphysis and transfixation by lateral plate and multiple screws. IMPRESSION: Open reduction and internal fixation severely comminuted fracture of the distal femoral metadiaphysis with transfixation by plate and screws. Alignment is improved in the final film Interpreted and Authenticated by: Tha Rios 07/15/19
[2019-07-15] MEDS: SENNOSIDES/DOCUSATE SODIUM 1 TAB TABLET PO SCH (21:01)
[2019-07-16] MEDS: HYDROmorphone 2 MG/ML VIAL IV PRN (05:25)
[2019-07-16] MEDS: 0.9 % SODIUM CHLORIDE 10 ML SYRINGE IV SCH ×3 (05:27→21:01)
[2019-07-16 05:58] LABS: Hematocrit 21.1 % (34.1-44.9); Hemoglobin 7.1 g/dL (11.2-15.7); Mean Cell Volume 93.4 fL (80.0-100.0); Mean Corpuscular HGB Conc 33.6 g/dL (31.0-36.0); Mean Platelet Volume 10.2 fL (7.4-10.4); Platelet Count 114 K/mcL (140-440); RBC 2.26 M/mcL (3.59-5.38); Red Cell Distribution Width 15.1 % (11.5-14.5); WBC 13.5 K/mcL (4.50-11.00)
[2019-07-16 06:14] LABS: ALT/SGPT 15 U/l (0-40); AST/SGOT 28 U/l (0-37); Albumin 2.4 gm/dL (3.2-5.2); Albumin/Globulin Ratio 0.9 (1.0-2.3); Alkaline Phosphatase 40 U/L (39-117); Bilirubin,Direct < 0.2 mg/dL (0.0-0.3); Bilirubin,Total 0.6 mg/dL (0.0-1.0); Blood Urea Nitrogen 29 mg/dl (8-23); Carbon Dioxide 22 mmol/L (22-30); Chloride 101 mmol/L (96-108); Globulin 2.6 gm/dL (2.2-3.7); Glomerular Filtration Rate 77; Glucose 176 mg/dL (70-105); Lactate Dehydrogenase 224 U/L (94-250); Phosphorous 2.8 mg/dL (2.7-4.5); Triglycerides 50 mg/dl (<150); Uric Acid 5.6 mg/dL (2.5-8.0)
[2019-07-16 07:19] LABS: Anisocytosis FEW (NONE SEEN); Band Neutrophils % 3 % (0-10); Lymphocytes % 2 % (15-49); Monocytes % (Manual) 7 % (1-12); Platelet Estimate DECREASED (NORMAL); RBC Morphology ABNORM (NORMAL); Segmented Neutrophils % 88 % (38-78)
--- NOTE | 2019-07-16 07:27 | Orthopedic Progress Note ---
Subjective Patient information: Note initiated : 07/16/19 at 7:25 am Service Date, if different from initiated Date: [] Patient: Nayely Zhao 89 y/o F admitted on 07/14/19 for Fall. Chief Complaint: [Left supracondylar femur fx] Patient is resting comfortable and has no complaints. She is fairly confused. She denies any new onset chest pain, SOA, or calf tenderness. Principal diagnosis: Left comminuted displaced supracondylar femur fx Objective Vital signs: Vital Signs Temp Pulse Pulse Resp BP BP Pulse Ox 07/16/19 04:00 77 11 L 99/63 100 07/16/19 03:00 82 14 113/58 100 07/16/19 02:01 91 H 25 H 106/44 100 07/16/19 01:30 86 22 118/66 100 07/16/19 01:00 88 14 130/52 100 07/16/19 00:31 84 15 116/71 100 07/16/19 00:01 97.4 F 94 H 12 108/62 100 07/15/19 23:31 79 12 115/55 100 07/15/19 23:01 80 12 110/56 100 07/15/19 22:31 83 12 119/54 100 07/15/19 22:02 89 15 115/61 100 07/15/19 21:31 93 H 19 129/114 100 07/15/19 20:32 95 H 20 137/65 98 07/15/19 20:01 84 14 127/109 100 07/15/19 19:31 80 12 138/62 100 07/15/19 19:01 83 11 L 122/64 100 07/15/19 18:32 79 15 127/58 100 07/15/19 18:01 77 16 124/68 100 07/15/19 17:47 78 13 131/64 100 07/15/19 17:32 86 14 133/60 100 07/15/19 17:17 84 14 131/63 100 07/15/19 17:02 76 13 100 07/15/19 17:01 73 13 124/58 100 07/15/19 16:46 74 12 125/68 100 07/15/19 16:32 70 16 113/59 100 07/15/19 16:21 71 118/62 100 07/15/19 16:10 97 F 71 14 120/57 100 07/15/19 16:05 74 15 120/55 100 07/15/19 16:00 75 14 125/60 100 07/15/19 15:55 75 16 109/86 100 07/15/19 15:50 74 16 126/63 99 07/15/19 15:45 73 17 102/66 99 07/15/19 15:40 71 15 111/52 99 07/15/19 15:36 97.6 F 68 14 110/48 99 07/15/19 11:51 106 H 100 07/15/19 11:29 97 H 16 132/63 95 07/15/19 11:00 85 22 138/63 100 07/15/19 10:48 85 14 137/57 100 07/15/19 10:28 84 21 134/63 93 07/15/19 10:00 88 17 134/57 100 07/15/19 09:00 87 17 138/53 100 07/15/19 08:01 85 16 134/52 100 07/15/19 08:00 87 16 100 07/15/19 07:57 99.9 F H 87 20 143/58 100 Intake and Output 07/15/19 07/16/19 07/16/19 21:59 05:59 13:59 Intake Total 2473 1120 Output Total 600 Balance 2473 520 Intake: IV 2473 Sodium Chloride 0.9% 1,000 ml @ 1823 100 mls/hr IV .Q10H [facility] Rx#: [id number] Sodium Chloride 0.9% 250 ml @ 250 20 mls/hr IV .[id number] [facility] Rx#: [id number] Vancomycin 1,000 mg In Sodium 250 Chloride 0.9% 250 ml @ 250 mls/ hr IV PREOP [facility] Rx#:[id number] Ancef 2 gm In Dextrose 5% in 50 Water 50 ml @ 100 mls/hr IV PREOP [facility] Rx#:[id number] Oral 1120 Output: Urine Catheter Amount 600 Other: Meal Dinner Percent of Meal Consumed 50% Feeding Ability Assist with Tray Set Up Urine Appearance Clear Urine Color Bright Yellow Weight 168 lb Intake & Output: Intake & Output 07/15/19 07/16/19 07/16/19 21:59 05:59 13:59 Intake Total 2473 1120 Output Total 600 Balance 2473 520 Weight 168 lb Intake: IV 2473 Sodium Chloride 0.9% 1,000 ml @ 1823 100 mls/hr IV .Q10H [facility] Rx#: [id number] Sodium Chloride 0.9% 250 ml @ 250 20 mls/hr IV .[id number] [facility] Rx#: [id number] Vancomycin 1,000 mg In Sodium 250 Chloride 0.9% 250 ml @ 250 mls/ hr IV PREOP [facility] Rx#:[id number] Ancef 2 gm In Dextrose 5% in 50 Water 50 ml @ 100 mls/hr IV PREOP [facility] Rx#:[id number] Oral 1120 Output: Urine Catheter Amount 600 Other: Meal Dinner Percent of Meal Consumed 50% Feeding Ability Assist with Tray Set Up Urine Appearance Clear Urine Color Bright Yellow Incision: Yes healing, Yes clean and dry Incision clean and dry: Yes Dressing: Yes clean, Yes dry, Yes intact Weight bearing status: non (LLE) Neurological exam IM: Yes oriented X3, Yes motor sensory intact, Yes neurovascular intact Extremities exam IM: Yes calf tenderness (negative bilaterally), Yes Edwin's sign (negative bilaterally), Yes neurovascular intact - Labs CBC & BMP: 07/16/19 05:00 07/16/19 05:00 Labs: Orthopedic Labs 07/14/19 12:53 PT 14.3 INR 1.1 07/16/19 07/15/19 07/14/19 05:00 04:49 12:53 Hgb 7.1 L 8.0 L 8.9 L Hct 21.1 L 24.5 L 26.4 L Assessment and Plan (1) Femur fracture, left Knee ranger on LLE at all times. Non-weightbearing on LLE. May apply silver dressing prior to discharge. Likely discharge to SNF and medical management per hospitalist. Patient will follow-up with [facility] in 2 weeks following discharge. Status: Acute
[2019-07-16] MEDS: INSULIN LISPRO 1 UNIT/0.01 ML UNIT SQ SCH ×4 (07:38→21:00)
[2019-07-16] MEDS ORDERED: VERAPAMIL 120 MG TAB.XL.24H PO SCH (09:00)
[2019-07-16] MEDS: HEPARIN 5,000 UNIT/ML VIAL SQ SCH ×2 (09:39→20:59)
[2019-07-16] MEDS: MULTIVIT,THER IRON,CA,FA & MIN 1 TABLET PO SCH (09:40)
[2019-07-16] MEDS: CYANOCOBALAMIN (VITAMIN B-12) 500 MCG TABLET PO SCH ×2 (09:40→21:00)
[2019-07-16] MEDS: THIAMINE 100 MG TABLET PO SCH (09:40)
[2019-07-16] MEDS: DOCUSATE SODIUM 100 MG CAPSULE PO SCH ×2 (09:40→21:00)
[2019-07-16] MEDS ORDERED: ONDANSETRON 4 MG/2 ML VIAL IV PRN (10:04)
[2019-07-16] MEDS ORDERED: BISACODYL 10 MG SUPP.RECT PR PRN (10:04)
[2019-07-16] MEDS ORDERED: DEXTROSE 31 GM ORAL.SUSP PO PRN (10:04)
[2019-07-16] MEDS ORDERED: ACETAMINOPHEN 325 MG TABLET PO PRN (10:04)
[2019-07-16] MEDS ORDERED: DEXTROSE 50% 50 ML VIAL IV PRN (10:04)
[2019-07-16] MEDS ORDERED: MELATONIN 3 MG TABLET PO PRN (10:04)
[2019-07-16] MEDS ORDERED: HYDROmorphone 2 MG/ML VIAL IV PRN (10:04)
[2019-07-16] MEDS ORDERED: POTASSIUM CHLORIDE 20 MEQ PACKET PO PRN (10:04)
[2019-07-16] MEDS ORDERED: MAGNESIUM SULFATE 2 GM/50 ML BAG IV PRN (10:04)
[2019-07-16] MEDS ORDERED: ONDANSETRON 4 MG ODT TABLET SL PRN (10:04)
[2019-07-16] MEDS ORDERED: FUROSEMIDE 20 MG TABLET PO PRN (10:04)
[2019-07-16] MEDS ORDERED: VANCOMYCIN PER PHARMACY IV ONE (11:38)
[2019-07-16] MEDS ORDERED: VANCOMYCIN 1,500 MG in 0.9 % SODIUM CHLORIDE 500 ML IV ONE (11:45)
[2019-07-16] MEDS: ACETAMINOPHEN 650 MG/65 ML BOTTLE IV PRN ×2 (14:58→21:30)
--- NOTE | 2019-07-16 16:12 | Internal Med Progress Note ---
Medical - PN: Subj Patient information: Note initiated : 07/16/19 at 4:09 pm Service Date, if different from initiated Date: [] Patient: Nayely Zhao a 89 y/o F admitted on 07/14/19 for Fall. Chief Complaint: [] Interval history: Ms. Zhao is a 89 year old F with advanced dementia residing with her daughter and presents to the emergency room following unwitnessed fall and was evaluated by EMS with bilateral knee pain/left leg deformity and generalized pain. Following presentation to [facility] ER she underwent extensive work-up including whole-body imaging. Imaging revealed left femur fracture. Dr. Ky nuno orthopedic was consulted and recommended operative intervention. Orthopedics recommended to use a blood transfusion prior to surgery in light of hemoglobin 8.9. Patient was also found to be hypothermic at 94 and underwent active rewarming Subsequently hospitalist service was requested for admission. The time evaluation patient is alert. She was able to answer some of the questions. She could not recall the events prior to the fall or recollect episodes of dizziness lightheadedness. She denies fever or chest pain. She endorses pain during movement of left extremity. 07/14-hemoglobin down to 8 following transfusion. White count down to 10.3, additional 1 unit transfusion today. You for surgery today. No modifiable risk factor. Case discussed with Dr. Soares orthopedics. Will review postoperatively. Patient remains high risk operative morbidity and mortality in light of advanced age and underlying diabetes/dementia and deconditioning with poor functional status. 07/15. Patient seen postop day 1. Doing well. No significant pain at the operative site. Alert and respond to commands. Hemoglobin 7.1 initial 1 unit PRBC transfusion. Sodium 131. 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 No other concerns per nursing staff. - Constitutional Vitals: Vital Signs Temp Pulse Resp BP Pulse Ox 97.7 F 71 14 116/60 100 07/16/19 12:00 07/16/19 08:00 07/16/19 12:00 07/16/19 12:00 07/16/19 12:00 Period Temp Pulse Resp BP Sys/Benedict Pulse Ox Last 24 Hr 97 F-99.4 F 70-95 11-25 99-138/44-114 98-100 Intake and Output 07/16/19 07/16/19 07/16/19 05:59 13:59 21:59 Intake Total 1120 240 Output Total 600 650 Balance 520 -410 Intake & Output: Intake & Output 07/16/19 07/16/19 07/16/19 05:59 13:59 21:59 Intake Total 1120 240 Output Total 600 650 Balance 520 -410 Intake: Oral 1120 240 Output: Urine Catheter Amount 600 Void Amount 650 Other: Meal Dinner Breakfast Percent of Meal Consumed 50% 100% Feeding Ability Assist with Tray Set Up Assist with Tray Set Up Urine Appearance Clear Clear Urine Color Bright Yellow Bright Yellow General appearance: no acute distress - Head Additional comments: postop state Alert and responding Nonlabored breathing No anxiety Medical - PN: Obj Da - Labs CBC & Chem 7: 07/16/19 05:00 07/16/19 05:00 Labs: Abnormal Lab Results 07/16/19 07/16/19 07/15/19 05:00 05:00 04:49 WBC 13.5 H RBC 2.26 L 2.50 L Hgb 7.1 L 8.0 L Hct 21.1 L 24.5 L POC Hct RDW 15.1 H Plt Count 114 L Gran % Lymph % (Auto) Gran # Lymph # (Auto) [place] # (Auto) Seg Neutrophils % 88 H 89 H Lymphocytes % 2 L 7 L RBC Morphology Abnorm A Anisocytosis Few A Sodium 131 L Carbon Dioxide POC BUN BUN 29 H Glucose 176 H POC Glucose Calcium 8.0 L POC WB Ioniz Calcium Total Creatine Kinase CK-MB (CK-2) Total Protein 5.0 L Albumin 2.4 L Albumin/Globulin Ratio 0.9 L 07/15/19 07/14/19 07/14/19 04:48 12:53 12:53 WBC RBC Hgb Hct POC Hct 25.0 L RDW Plt Count Gran % Lymph % (Auto) Gran # Lymph # (Auto) [place] # (Auto) Seg Neutrophils % Lymphocytes % RBC Morphology Anisocytosis Sodium 132 L Carbon Dioxide 20 L 21 L POC BUN 38 H BUN 32 H 39 H Glucose 148 H 163 H POC Glucose 159 H Calcium 8.0 L 8.5 L POC WB Ioniz Calcium 1.14 L Total Creatine Kinase 181 H CK-MB (CK-2) 6.6 H Total Protein 5.5 L Albumin 2.8 L Albumin/Globulin Ratio 07/14/19 12:53 WBC 16.1 H RBC 2.69 L Hgb 8.9 L Hct 26.4 L POC Hct RDW Plt Count Gran % 81.8 H Lymph % (Auto) 7.4 L Gran # 13.17 H Lymph # (Auto) 1.20 L [place] # (Auto) 1.56 H Seg Neutrophils % Lymphocytes % RBC Morphology Anisocytosis Sodium Carbon Dioxide POC BUN BUN Glucose POC Glucose Calcium POC WB Ioniz Calcium Total Creatine Kinase CK-MB (CK-2) Total Protein Albumin Albumin/Globulin Ratio Meds: Medications Acetaminophen (Tylenol) 650 mg PO Q4-6HP PRN; Protocol PRN Reason: Per Pain Protocol/Fever > 101 Hydrocodone Bitart/Acetaminophen ([place] 10/325mg) 1 tab PO Q6HP PRN; Protocol PRN Reason: Pain Bisacodyl (Dulcolax) 10 mg IN Q2-3DAYS PRN PRN Reason: Constipation Cyanocobalamin (Vitamin B-12) 1,000 mcg PO BID [facility] Stop: 07/17/19 21:01 Dextrose (Dextrose 50%) 0 ml IV UD PRN PRN Reason: Hypoglycemia Diagnostic Test (Pha) (Accu-Chek) 1 each FS ACHS [facility] Last Admin: 07/16/19 11:47 Dose: 1 each Documented by: Docusate Sodium (Colace) 100 mg PO BID [facility] Furosemide (Lasix) 20 mg PO DAILYP PRN PRN Reason: Edema Glucose (Insta-Glucose) 15 gm PO PRN PRN PRN Reason: Hypoglycemia Heparin Sodium (Porcine) (Heparin) 5,000 unit SQ Q12 [facility] Hydromorphone HCl (Dilaudid) 0 mg IV Q4HP PRN; Protocol PRN Reason: Per Pain Protocol Magnesium Sulfate (Magnesium Sulfate) 2 gm in 50 mls @ 50 mls/hr IV UD PRN PRN Reason: MG = or < 1.7 Acetaminophen (Ofirmev) 650 mg in 65 mls @ 130 mls/hr IV Q6HP PRN; Protocol PRN Reason: Per Pain Protocol/Fever > 101 Last Admin: 07/16/19 14:58 Dose: 130 mls/hr Documented by: Insulin Human Lispro (Humalog) 0 unit SQ ACHS [facility]; Protocol Last Admin: 07/16/19 11:47 Dose: Not Given Documented by: Iron Carb/Multivit/[place]/Folic Acid (Multivitamin W/Minerals) 1 tab PO DAILY [facility] Melatonin (Melatonin 3mg Tablet) 3 mg PO HSP PRN PRN Reason: Insomnia Mupirocin (Bactroban Oint 2%) 1 dose NARES BID [facility] Ondansetron HCl (Zofran Odt) 4 mg SL Q4-6HP PRN; Protocol PRN Reason: Nausea And Vomiting Ondansetron HCl (Zofran) 4 mg IV Q4-6HP PRN; Protocol PRN Reason: Nausea And Vomiting Polyethylene Glycol (Miralax) 17 gm PO DAILYP PRN PRN Reason: Constipation Potassium Chloride (Klor-Con) 40 meq PO DAILYP PRN PRN Reason: K+ < 3.5 Senna/Docusate Sodium (Senna Plus Tablet) 1 tab PO HS [facility] Sodium Chloride (Saline Flush) 10 ml IV Q8 [facility] Last Admin: 07/16/19 14:37 Dose: 10 ml Documented by: Thiamine HCl (Vitamin B1) 100 mg PO DAILY [facility] Verapamil HCl (Calan Sr) 120 mg PO DAILY [facility] Medical - PN: A/P - Time Spent With Patient Total time spent is greater than 50% in coordination of care (as documented) at patient's floor/unit and/or counseling patient: 25 - 35 minutes (1) Femur fracture, left Status: Acute Assessment and plan: * Left femur fracture-postop day 1. Management per orthopedics * Blood loss anemia requiring transfusion. Status post units transfusion. Hemoglobin following first unit transfusion 7.1 * Hypothermia resolved after active rewarming. Electrolytes within normal limits * Atrial fibrillation-rate controlled on verapamil, Aspirin for CVA prophylaxis * Dementia- stable , continue home medications * Hypertension continue home dose lisinopril * Type 2 diabetes mellitus-basal prandial insulin * DVT prophylaxis heparin * Full code Plan * PRBC transfusion 1 unit * Postoperative care per orthopedics * Dementia care/fall watch * Continue pre-existing medical mission management on home medications * Continue PT OT nutrition support * Case management to coordinate SNF transfer in light advance age/leena ia/deconditioning and need for postoperative and posthospitalization rehab Current Visit: Yes Medical - PN: Qual - VTE Deep Vein Thrombosis/Pulmonary Embolism Present on Admission: No
[2019-07-16] MEDS: SENNOSIDES/DOCUSATE SODIUM 1 TAB TABLET PO SCH (21:00)
[2019-07-16] MEDS: MUPIROCIN OINT 2% 22GM NARES SCH (21:04)
[2019-07-17] MEDS: HYDROcodone/APAP 10/325MG TABLET PO PRN ×4 (01:20→20:28)
[2019-07-17] MEDS: ACETAMINOPHEN 650 MG/65 ML BOTTLE IV PRN (03:28)
[2019-07-17] MEDS: 0.9 % SODIUM CHLORIDE 10 ML SYRINGE IV SCH ×3 (05:58→20:18)
--- NOTE | 2019-07-17 07:04 | Orthopedic Progress Note ---
Subjective Patient information: Note initiated : 07/17/19 at 7:03 am Service Date, if different from initiated Date: [] Patient: Nayely Zhao 89 y/o F admitted on 07/14/19 for Fall. Chief Complaint: [] Principal diagnosis: Left comminuted displaced supracondylar femur fx Objective Vital signs: Vital Signs Temp Pulse Resp BP BP Pulse Ox 07/17/19 03:06 97.8 F 86 20 140/68 98 07/17/19 01:00 98.3 F 72 20 122/60 98 07/16/19 20:10 97.6 F 71 17 108/48 100 07/16/19 17:00 97.2 F 76 108/52 97 07/16/19 12:00 97.7 F 14 116/60 100 07/16/19 08:00 99.4 F H 71 16 107/61 100 Intake and Output 07/16/19 07/17/19 07/17/19 21:59 05:59 13:59 Intake Total 785 430 Output Total 100 450 Balance 685 -20 Intake: IV 65 130 Oral 720 300 Output: Urine Catheter Amount 100 450 Other: Meal Dinner Percent of Meal Consumed 100% Urine Appearance Clear Uretheral (Cardona) Clear Urine Color Light Lola Dark Yellow Uretheral (Cardona) Light Lola Urine Odor Strong Normal Uretheral (Cardona) Strong Weight 171 lb Intake & Output: Intake & Output 07/16/19 07/17/19 07/17/19 21:59 05:59 13:59 Intake Total 785 430 Output Total 100 450 Balance 685 -20 Weight 171 lb Intake: IV 65 130 Oral 720 300 Output: Urine Catheter Amount 100 450 Other: Meal Dinner Percent of Meal Consumed 100% Urine Appearance Clear Uretheral (Cardona) Clear Urine Color Light Lola Dark Yellow Uretheral (Cardona) Light Lola Urine Odor Strong Normal Uretheral (Cardona) Strong Dressing: Yes clean, Yes dry, Yes intact Neurological exam IM: Yes neurovascular intact - Labs CBC & BMP: 07/16/19 05:00 07/16/19 05:00 Labs: Orthopedic Labs 07/14/19 12:53 PT 14.3 INR 1.1 07/17/19 07/16/19 07/15/19 05:05 05:00 04:49 Hgb Pending 7.1 L 8.0 L Hct Pending 21.1 L 24.5 L 07/14/19 12:53 Hgb 8.9 L Hct 26.4 L Assessment and Plan - Narrative A/P Narrative: status post ORIF mobilize with PT 7 day dressing SNF patient is non weight bearing
[2019-07-17 07:11] LABS: Hematocrit 23.7 % (34.1-44.9); Hemoglobin 7.9 g/dL (11.2-15.7); Mean Cell Volume 94.8 fL (80.0-100.0); Mean Corpuscular HGB Conc 33.3 g/dL (31.0-36.0); Mean Platelet Volume 10.5 fL (7.4-10.4); Platelet Count 119 K/mcL (140-440); Red Cell Distribution Width 14.6 % (11.5-14.5); WBC 11.8 K/mcL (4.50-11.00)
[2019-07-17 07:40] LABS: ALT/SGPT 20 U/l (0-40); AST/SGOT 36 U/l (0-37); Albumin 2.4 gm/dL (3.2-5.2); Albumin/Globulin Ratio 0.9 (1.0-2.3); Alkaline Phosphatase 47 U/L (39-117); Bilirubin,Direct 0.2 mg/dL (0.0-0.3); Bilirubin,Total 0.9 mg/dL (0.0-1.0); Blood Urea Nitrogen 26 mg/dl (8-23); Calcium 7.6 mg/dl (8.6-10.4); Carbon Dioxide 21 mmol/L (22-30); Chloride 98 mmol/L (96-108); Globulin 2.7 gm/dL (2.2-3.7); Glomerular Filtration Rate 81; Glucose 109 mg/dL (70-105); Lactate Dehydrogenase 229 U/L (94-250); Phosphorous 2.1 mg/dL (2.7-4.5); Triglycerides 77 mg/dl (<150); Uric Acid 5.3 mg/dL (2.5-8.0)
[2019-07-17] MEDS: INSULIN LISPRO 1 UNIT/0.01 ML UNIT SQ SCH ×4 (08:00→20:28)
[2019-07-17 09:04] LABS: Eosinophils % (Manual) 2 % (0-7); Lymphocytes % 8 % (15-49); Monocytes % (Manual) 10 % (1-12); Platelet Estimate DECREASED (NORMAL); Polychromasia FEW (NONE SEEN); RBC Morphology ABNORM (NORMAL); Segmented Neutrophils % 80 % (38-78)
[2019-07-17] MEDS: THIAMINE 100 MG TABLET PO SCH (11:05)
[2019-07-17] MEDS: CYANOCOBALAMIN (VITAMIN B-12) 500 MCG TABLET PO SCH ×2 (11:05→20:17)
[2019-07-17] MEDS: VERAPAMIL 120 MG TAB.XL.24H PO SCH (11:06)
[2019-07-17] MEDS: DOCUSATE SODIUM 100 MG CAPSULE PO SCH ×2 (11:06→20:17)
[2019-07-17] MEDS: MULTIVIT,THER IRON,CA,FA & MIN 1 TABLET PO SCH (11:06)
[2019-07-17] MEDS: MUPIROCIN OINT 2% 22GM NARES SCH ×2 (11:07→20:17)
[2019-07-17] MEDS: HEPARIN 5,000 UNIT/ML VIAL SQ SCH ×2 (11:07→20:16)
--- NOTE | 2019-07-17 11:45 | XRay Report ---
CLINICAL INFORMATION: Pain COMPARISON: The 18/05/2017 FINDINGS: Right hip prosthesis remains in anatomic alignment without loosening or infection. No osseous abnormality. Cardona catheter tip overlies the central bladder. No soft tissue abnormality. Moderate L4-5 and L5-S1 degenerative disc disease. There is moderate bilateral SI joint and left hip degeneration. IMPRESSION: Degenerative change. Right hip prostheses is unremarkable Interpreted and Authenticated by: Tha Rios 07/17/19
--- NOTE | 2019-07-17 11:46 | XRay Report ---
CLINICAL INFORMATION: Traumar/o fracture COMPARISON: None. FINDINGS: No fracture or other osseous abnormalities. Moderate acromioclavicular and glenohumeral degenerative change appreciated. Soft tissues normal IMPRESSION: No evidence of fracture. Moderate acromioclavicular and glenohumeral degenerative change Interpreted and Authenticated by: Tha Rios 07/17/19
[2019-07-17] MEDS ORDERED: FUROSEMIDE 20 MG/2 ML VIAL IV ONE (12:22)
--- NOTE | 2019-07-17 16:52 | Internal Med Progress Note ---
Medical - PN: Subj Patient information: Note initiated : 07/17/19 at 4:44 pm Service Date, if different from initiated Date: [] Patient: Nayely Zhao a 89 y/o F admitted on 07/14/19 for Fall. Chief Complaint: [] Interval history: Ms. Zhao is a 89 year old F with advanced dementia residing with her daughter and presents to the emergency room following unwitnessed fall and was evaluated by EMS with bilateral knee pain/left leg deformity and generalized pain. Following presentation to [facility] ER she underwent extensive work-up including whole-body imaging. Imaging revealed left femur fracture. Dr. Ky nuno orthopedic was consulted and recommended operative intervention. Orthopedics recommended to use a blood transfusion prior to surgery in light of hemoglobin 8.9. Patient was also found to be hypothermic at 94 and underwent active rewarming Subsequently hospitalist service was requested for admission. The time evaluation patient is alert. She was able to answer some of the questions. She could not recall the events prior to the fall or recollect episodes of dizziness lightheadedness. She denies fever or chest pain. She endorses pain during movement of left extremity. 07/14-hemoglobin down to 8 following transfusion. White count down to 10.3, additional 1 unit transfusion today. You for surgery today. No modifiable risk factor. Case discussed with Dr. Soares orthopedics. Will review postoperatively. Patient remains high risk operative morbidity and mortality in light of advanced age and underlying diabetes/dementia and deconditioning with poor functional status. 07/15. Patient seen postop day 1. Doing well. No significant pain at the operative site. Alert and respond to commands. Hemoglobin 7.1 initial 1 unit PRBC transfusion. Sodium 131. 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 No other concerns per nursing staff. 07/16-patient doing well. No overnight events. Sodium at 127. Hemoglobin 7.9 status post transfusion. Ongoing PT OT/nutrition support. No family at bedside. On free water restriction/start salt tabs for treatment of SIADH. - Constitutional Vitals: Vital Signs Temp Pulse Resp BP Pulse Ox 96.8 F L 76 18 117/70 98 07/17/19 07:00 07/17/19 07:30 07/17/19 07:30 07/17/19 07:00 07/17/19 07:30 Period Temp Pulse Resp BP Sys/Benedict Pulse Ox Last 24 Hr 96.8 F-98.3 F 71-86 -20 108-140/48-70 97-100 Intake and Output 07/17/19 07/17/19 07/17/19 05:59 13:59 21:59 Intake Total 430 Output Total 450 800 Balance -20 -800 Weight 171 lb Patient Weight 07/18/19 05:59 Weight 171 lb Intake & Output: Intake & Output 07/17/19 07/17/19 07/17/19 05:59 13:59 21:59 Intake Total 430 Output Total 450 800 Balance -20 -800 Weight 171 lb Intake: IV 130 Oral 300 Output: Urine Catheter Amount 450 800 Other: Meal Breakfast Percent of Meal Consumed 75% Feeding Ability Independent Urine Appearance Uretheral (Cardona) Clear Urine Color Dark Yellow Uretheral (Cardona) Light Lola Urine Odor Normal Uretheral (Cardona) Strong General appearance: no acute distress Exam: Alert and respond to commands no concerns No anxiety Nonlabored breathing No significant pain at surgery site Medical - PN: Obj Da - Labs CBC & Chem 7: 07/17/19 05:05 07/17/19 05:05 Labs: Abnormal Lab Results 07/17/19 07/17/19 07/16/19 05:05 05:05 05:00 WBC 11.8 H RBC 2.50 L Hgb 7.9 L Hct 23.7 L RDW 14.6 H Plt Count 119 L MPV 10.5 H Seg Neutrophils % 80 H Lymphocytes % 8 L RBC Morphology Abnorm A Polychromasia Few A Anisocytosis Sodium 127 L 131 L Carbon Dioxide 21 L BUN 26 H 29 H Glucose 109 H 176 H Calcium 7.6 L 8.0 L Phosphorus 2.1 L Total Creatine Kinase CK-MB (CK-2) Total Protein 5.1 L 5.0 L Albumin 2.4 L 2.4 L Albumin/Globulin Ratio 0.9 L 0.9 L 07/16/19 07/15/19 07/15/19 05:00 04:49 04:48 WBC 13.5 H RBC 2.26 L 2.50 L Hgb 7.1 L 8.0 L Hct 21.1 L 24.5 L RDW 15.1 H Plt Count 114 L MPV Seg Neutrophils % 88 H 89 H Lymphocytes % 2 L 7 L RBC Morphology Abnorm A Polychromasia Anisocytosis Few A Sodium 132 L Carbon Dioxide 20 L BUN 32 H Glucose 148 H Calcium 8.0 L Phosphorus Total Creatine Kinase CK-MB (CK-2) Total Protein 5.5 L Albumin 2.8 L Albumin/Globulin Ratio 07/14/19 12:53 WBC RBC Hgb Hct RDW Plt Count MPV Seg Neutrophils % Lymphocytes % RBC Morphology Polychromasia Anisocytosis Sodium Carbon Dioxide BUN Glucose Calcium Phosphorus Total Creatine Kinase 181 H CK-MB (CK-2) 6.6 H Total Protein Albumin Albumin/Globulin Ratio Meds: Medications Acetaminophen (Tylenol) 650 mg PO Q4-6HP PRN; Protocol PRN Reason: Per Pain Protocol/Fever > 101 Hydrocodone Bitart/Acetaminophen ([place] 10/325mg) 1 tab PO Q6HP PRN; Protocol PRN Reason: Pain Last Admin: 07/17/19 14:36 Dose: 1 tab Documented by: Bisacodyl (Dulcolax) 10 mg [place] Q2-3DAYS PRN PRN Reason: Constipation Cyanocobalamin (Vitamin B-12) 1,000 mcg PO BID [facility] Stop: 07/17/19 21:01 Last Admin: 07/17/19 11:05 Dose: 1,000 mcg Documented by: Dextrose (Dextrose 50%) 0 ml IV UD PRN PRN Reason: Hypoglycemia Diagnostic Test (Pha) (Accu-Chek) 1 each FS ACHS [facility] Last Admin: 07/17/19 11:17 Dose: 1 each Documented by: Docusate Sodium (Colace) 100 mg PO BID [facility] Last Admin: 07/17/19 11:06 Dose: 100 mg Documented by: Furosemide (Lasix) 20 mg PO DAILYP PRN PRN Reason: Edema Glucose (Insta-Glucose) 15 gm PO PRN PRN PRN Reason: Hypoglycemia Heparin Sodium (Porcine) (Heparin) 5,000 unit SQ Q12 [facility] Last Admin: 07/17/19 11:07 Dose: 5,000 unit Documented by: Hydromorphone HCl (Dilaudid) 0 mg IV Q4HP PRN; Protocol PRN Reason: Per Pain Protocol Magnesium Sulfate (Magnesium Sulfate) 2 gm in 50 mls @ 50 mls/hr IV UD PRN PRN Reason: MG = or < 1.7 Acetaminophen (Ofirmev) 650 mg in 65 mls @ 130 mls/hr IV Q6HP PRN; Protocol PRN Reason: Per Pain Protocol/Fever > 101 Last Infusion: 07/17/19 03:58 Dose: Infused Documented by: Insulin Human Lispro (Humalog) 0 unit SQ ACHS [facility]; Protocol Last Admin: 07/17/19 11:18 Dose: Not Given Documented by: Iron Carb/Multivit/[place]/Folic Acid (Multivitamin W/Minerals) 1 tab PO DAILY [facility] Last Admin: 07/17/19 11:06 Dose: 1 tab Documented by: Melatonin (Melatonin 3mg Tablet) 3 mg PO HSP PRN PRN Reason: Insomnia Mupirocin (Bactroban Oint 2%) 1 dose NARES BID [facility] Last Admin: 07/17/19 11:07 Dose: 1 dose Documented by: Ondansetron HCl (Zofran Odt) 4 mg SL Q4-6HP PRN; Protocol PRN Reason: Nausea And Vomiting Ondansetron HCl (Zofran) 4 mg IV Q4-6HP PRN; Protocol PRN Reason: Nausea And Vomiting Polyethylene Glycol (Miralax) 17 gm PO DAILYP PRN PRN Reason: Constipation Potassium Chloride (Klor-Con) 40 meq PO DAILYP PRN PRN Reason: K+ < 3.5 Senna/Docusate Sodium (Senna Plus Tablet) 1 tab PO HS [facility] Last Admin: 07/16/19 21:00 Dose: 1 tab Documented by: Sodium Chloride (Saline Flush) 10 ml IV Q8 [facility] Last Admin: 07/17/19 13:17 Dose: 10 ml Documented by: Thiamine HCl (Vitamin B1) 100 mg PO DAILY [facility] Last Admin: 07/17/19 11:05 Dose: 100 mg Documented by: Verapamil HCl (Calan Sr) 120 mg PO DAILY [facility] Last Admin: 07/17/19 11:06 Dose: 120 mg Documented by: Medical - PN: A/P - Time Spent With Patient Total time spent is greater than 50% in coordination of care (as documented) at patient's floor/unit and/or counseling patient: 25 - 35 minutes (1) Femur fracture, left Status: Acute Assessment and plan: * Left femur fracture-postop day 2. Ongoing management per orthopedics, PT OT * Blood loss anemia requiring transfusion. Status post 2 units PRBC. 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 Sodium 137. Continue free water restriction/diuretic and salt tabs. Check urine and serum osmolarity * Hypothermia resolved after active rewarming. Electrolytes within normal limits * Atrial fibrillation-rate controlled on verapamil, Aspirin for CVA prophylaxis * Dementia- stable , continue home medications * Hypertension continue home dose lisinopril * Type 2 diabetes mellitus-basal prandial insulin * DVT prophylaxis heparin * Full code Plan * Discharge planning likely SNF * Dementia care/fall watch * Urine and serum osmolality * SolTab/diuresis/fever restriction * Continue pre-existing medical mission management on home medications * PT OT nutrition support Current Visit: Yes Medical - PN: Qual - VTE Deep Vein Thrombosis/Pulmonary Embolism Present on Admission: No
[2019-07-17] MEDS: SODIUM CHLORIDE 1 GM TABLET PO SCH (20:16)
[2019-07-17] MEDS: SENNOSIDES/DOCUSATE SODIUM 1 TAB TABLET PO SCH (20:16)
[2019-07-18] MEDS: HYDROcodone/APAP 10/325MG TABLET PO PRN ×4 (04:18→23:51)
[2019-07-18] MEDS: 0.9 % SODIUM CHLORIDE 10 ML SYRINGE IV SCH ×3 (04:19→21:30)
[2019-07-18 06:52] LABS: Hematocrit 25.2 % (34.1-44.9); Hemoglobin 8.3 g/dL (11.2-15.7); Mean Cell Volume 96.6 fL (80.0-100.0); Mean Corpuscular HGB Conc 32.9 g/dL (31.0-36.0); Mean Platelet Volume 10.2 fL (7.4-10.4); Platelet Count 139 K/mcL (140-440); RBC 2.61 M/mcL (3.59-5.38); Red Cell Distribution Width 14.3 % (11.5-14.5); WBC 7.7 K/mcL (4.50-11.00)
[2019-07-18] MEDS: INSULIN LISPRO 1 UNIT/0.01 ML UNIT SQ SCH ×4 (07:25→21:30)
[2019-07-18 07:51] LABS: ALT/SGPT 23 U/l (0-40); AST/SGOT 38 U/l (0-37); Albumin 2.4 gm/dL (3.2-5.2); Albumin/Globulin Ratio 0.9 (1.0-2.3); Alkaline Phosphatase 45 U/L (39-117); Bilirubin,Total 0.9 mg/dL (0.0-1.0); Blood Urea Nitrogen 24 mg/dl (8-23); Calcium 7.7 mg/dl (8.6-10.4); Carbon Dioxide 22 mmol/L (22-30); Chloride 101 mmol/L (96-108); Globulin 2.8 gm/dL (2.2-3.7); Glomerular Filtration Rate 81; Glucose 102 mg/dL (70-105); Lactate Dehydrogenase 261 U/L (94-250); Triglycerides 79 mg/dl (<150); Uric Acid 4.9 mg/dL (2.5-8.0)
[2019-07-18 08:02] LABS: Bilirubin,Direct < 0.2 mg/dL (0.0-0.3); Phosphorous 2.2 mg/dL (2.7-4.5)
[2019-07-18 08:17] LABS: Eosinophils % (Manual) 4 % (0-7); Lymphocytes % 10 % (15-49); Monocytes % (Manual) 8 % (1-12); Platelet Estimate NORMAL (NORMAL); RBC Morphology NORMAL (NORMAL); Segmented Neutrophils % 78 % (38-78)
[2019-07-18] MEDS: SODIUM CHLORIDE 1 GM TABLET PO SCH ×3 (08:50→21:29)
[2019-07-18] MEDS: VERAPAMIL 120 MG TAB.XL.24H PO SCH (08:50)
[2019-07-18] MEDS: MUPIROCIN OINT 2% 22GM NARES SCH ×2 (08:51→21:30)
[2019-07-18] MEDS: HEPARIN 5,000 UNIT/ML VIAL SQ SCH ×2 (08:51→21:29)
[2019-07-18] MEDS: THIAMINE 100 MG TABLET PO SCH (08:51)
[2019-07-18] MEDS: MULTIVIT,THER IRON,CA,FA & MIN 1 TABLET PO SCH (08:51)
[2019-07-18] MEDS: DOCUSATE SODIUM 100 MG CAPSULE PO SCH ×2 (08:51→21:30)
[2019-07-18] MEDS: POLYETHYLENE GLYCOL 3350 17 GM PACKET PO PRN (16:01)
--- NOTE | 2019-07-18 20:46 | Internal Med Progress Note ---
Medical - PN: Subj Patient information: Note initiated : 07/18/19 at 8:46 pm Service Date, if different from initiated Date: [] Patient: Nayely Zhao a 89 y/o F admitted on 07/14/19 for Fall. Chief Complaint: [] Interval history: Ms. Zhao is a 89 year old F with advanced dementia residing with her daughter and presents to the emergency room following unwitnessed fall and was evaluated by EMS with bilateral knee pain/left leg deformity and generalized pain. Following presentation to [facility] ER she underwent extensive work-up including whole-body imaging. Imaging revealed left femur fracture. Dr. Ky nuno orthopedic was consulted and recommended operative intervention. Orthopedics recommended to use a blood transfusion prior to surgery in light of hemoglobin 8.9. Patient was also found to be hypothermic at 94 and underwent active rewarming Subsequently hospitalist service was requested for admission. The time evaluation patient is alert. She was able to answer some of the questions. She could not recall the events prior to the fall or recollect episodes of dizziness lightheadedness. She denies fever or chest pain. She endorses pain during movement of left extremity. 07/14-hemoglobin down to 8 following transfusion. White count down to 10.3, additional 1 unit transfusion today. You for surgery today. No modifiable risk factor. Case discussed with Dr. Soares orthopedics. Will review postoperatively. Patient remains high risk operative morbidity and mortality in light of advanced age and underlying diabetes/dementia and deconditioning with poor functional status. 07/15. Patient seen postop day 1. Doing well. No significant pain at the operative site. Alert and respond to commands. Hemoglobin 7.1 initial 1 unit PRBC transfusion. Sodium 131. 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 No other concerns per nursing staff. 07/16-patient doing well. No overnight events. Sodium at 127. Hemoglobin 7.9 status post transfusion. Ongoing PT OT/nutrition support. No family at bedside. On free water restriction/start salt tabs for treatment of SIADH. 07/17-patient doing well. Improving postoperative pain. Alert. Sodium improved to 132. Hemoglobin 8.1. No overnight fever chills. No other concerns per staff. Potassium 4.2. Renal function stable. - Constitutional Vitals: Vital Signs Temp Pulse Resp BP Pulse Ox 99.0 F 98 H 16 112/58 98 07/18/19 15:23 07/18/19 15:23 07/18/19 15:23 07/18/19 15:23 07/18/19 15:23 Period Temp Pulse Resp BP Sys/Benedict Pulse Ox Last 24 Hr 98.0 F-99.0 F 66-98 16-18 112-137/58-82 92-99 Intake and Output 07/18/19 07/18/19 07/18/19 05:59 13:59 21:59 Intake Total 300 240 240 Output Total 350 200 Balance -50 240 40 Intake & Output: Intake & Output 07/18/19 07/18/19 07/18/19 05:59 13:59 21:59 Intake Total 300 240 240 Output Total 350 200 Balance -50 240 40 Intake: Oral 300 240 240 Output: Urine Catheter Amount 350 200 Other: Meal Lunch Percent of Meal Consumed 75% Feeding Ability Assist with Tray Set Up Urine Appearance Clear Cloudy Uretheral (Cardona) Cloudy Cloudy Urine Color Dark Yellow Dark Yellow Uretheral (Cardona) Dark Yellow Dark Yellow Urine Odor Normal Strong General appearance: no acute distress Exam: Alert oriented nonlabored breathing No anxiety No significant postoperative site pain No pallor Medical - PN: Obj Da - Labs CBC & Chem 7: 07/19/19 05:15 07/19/19 05:15 Labs: Abnormal Lab Results 07/18/19 07/18/19 07/17/19 05:05 05:05 05:05 WBC RBC 2.61 L Hgb 8.3 L Hct 25.2 L RDW Plt Count 139 L MPV Seg Neutrophils % Lymphocytes % 10 L RBC Morphology Polychromasia Anisocytosis Sodium 127 L Carbon Dioxide 21 L BUN 24 H 26 H Glucose 109 H Calcium 7.7 L 7.6 L Phosphorus 2.2 L 2.1 L AST 38 H Lactate Dehydrogenase 261 H Total Protein 5.2 L 5.1 L Albumin 2.4 L 2.4 L Albumin/Globulin Ratio 0.9 L 0.9 L 07/17/19 07/16/19 07/16/19 05:05 05:00 05:00 WBC 11.8 H 13.5 H RBC 2.50 L 2.26 L Hgb 7.9 L 7.1 L Hct 23.7 L 21.1 L RDW 14.6 H 15.1 H Plt Count 119 L 114 L MPV 10.5 H Seg Neutrophils % 80 H 88 H Lymphocytes % 8 L 2 L RBC Morphology Abnorm A Abnorm A Polychromasia Few A Anisocytosis Few A Sodium 131 L Carbon Dioxide BUN 29 H Glucose 176 H Calcium 8.0 L Phosphorus AST Lactate Dehydrogenase Total Protein 5.0 L Albumin 2.4 L Albumin/Globulin Ratio 0.9 L Meds: Medications Acetaminophen (Tylenol) 650 mg PO Q4-6HP PRN; Protocol PRN Reason: Per Pain Protocol/Fever > 101 Hydrocodone Bitart/Acetaminophen ([place] 10/325mg) 1 tab PO Q6HP PRN; Protocol PRN Reason: Pain Last Admin: 07/18/19 17:23 Dose: 1 tab Documented by: Bisacodyl (Dulcolax) 10 mg [place] Q2-3DAYS PRN PRN Reason: Constipation Dextrose (Dextrose 50%) 0 ml IV UD PRN PRN Reason: Hypoglycemia Diagnostic Test (Pha) (Accu-Chek) 1 each FS [facility] Last Admin: 07/18/19 16:55 Dose: 1 each Documented by: Docusate Sodium (Colace) 100 mg PO BID [facility] Last Admin: 07/18/19 08:51 Dose: 100 mg Documented by: Furosemide (Lasix) 20 mg PO DAILYP PRN PRN Reason: Edema Glucose (Insta-Glucose) 15 gm PO PRN PRN PRN Reason: Hypoglycemia Heparin Sodium (Porcine) (Heparin) 5,000 unit SQ Q12 [facility] Last Admin: 07/18/19 08:51 Dose: 5,000 unit Documented by: Hydromorphone HCl (Dilaudid) 0 mg IV Q4HP PRN; Protocol PRN Reason: Per Pain Protocol Magnesium Sulfate (Magnesium Sulfate) 2 gm in 50 mls @ 50 mls/hr IV UD PRN PRN Reason: MG = or < 1.7 Acetaminophen (Ofirmev) 650 mg in 65 mls @ 130 mls/hr IV Q6HP PRN; Protocol PRN Reason: Per Pain Protocol/Fever > 101 Last Infusion: 07/17/19 03:58 Dose: Infused Documented by: Insulin Human Lispro (Humalog) 0 unit SQ [facility]; Protocol Last Admin: 07/18/19 17:00 Dose: 2 units Documented by: Iron Carb/Multivit/[place]/Folic Acid (Multivitamin W/Minerals) 1 tab PO DAILY [facility] Last Admin: 07/18/19 08:51 Dose: 1 tab Documented by: Melatonin (Melatonin 3mg Tablet) 3 mg PO HSP PRN PRN Reason: Insomnia Mupirocin (Bactroban Oint 2%) 1 dose NARES BID [facility] Last Admin: 07/18/19 08:51 Dose: 1 dose Documented by: Ondansetron HCl (Zofran Odt) 4 mg SL Q4-6HP PRN; Protocol PRN Reason: Nausea And Vomiting Ondansetron HCl (Zofran) 4 mg IV Q4-6HP PRN; Protocol PRN Reason: Nausea And Vomiting Polyethylene Glycol (Miralax) 17 gm PO DAILYP PRN PRN Reason: Constipation Last Admin: 07/18/19 16:01 Dose: 17 gm Documented by: Potassium Chloride (Klor-Con) 40 meq PO DAILYP PRN PRN Reason: K+ < 3.5 Senna/Docusate Sodium (Senna Plus Tablet) 1 tab PO HS [facility] Last Admin: 07/17/19 20:16 Dose: 1 tab Documented by: Sodium Chloride (Saline Flush) 10 ml IV Q8 [facility] Last Admin: 07/18/19 14:55 Dose: 10 ml Documented by: Sodium Chloride (Sodium Chloride) 2 gm PO TID [facility] Last Admin: 07/18/19 14:55 Dose: 2 gm Documented by: Thiamine HCl (Vitamin B1) 100 mg PO DAILY [facility] Last Admin: 07/18/19 08:51 Dose: 100 mg Documented by: Verapamil HCl (Calan Sr) 120 mg PO DAILY [facility] Last Admin: 07/18/19 08:50 Dose: 120 mg Documented by: Medical - PN: A/P - Time Spent With Patient Total time spent is greater than 50% in coordination of care (as documented) at patient's floor/unit and/or counseling patient: 25 - 35 minutes (1) Femur fracture, left Status: Acute Assessment and plan: * Left femur fracture-postop day 3. Continue postop care/management per orthopedics, PT OT * Blood loss anemia requiring transfusion. Status post 2 units PRBC. 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 Urine osmolarity 544. Sodium improved from 127-133 . Continue free water restriction/diuretic and salt tabs. * Hypothermia resolved after active rewarming. Electrolytes within normal limits * Atrial fibrillation-rate controlled on verapamil, Aspirin for CVA prophylaxis * Dementia- stable , continue home medications * Hypertension continue home dose lisinopril * Type 2 diabetes mellitus-basal prandial insulin * DVT prophylaxis heparin * Full code Plan * Possible discharge on Saturday to SNF * Continue dementia care/fall watch * Continue salt tabs/diuresis/fever restriction * Continue pre-existing medical condition management on home medications * PT OT nutrition support Current Visit: Yes Medical - PN: Qual - VTE Deep Vein Thrombosis/Pulmonary Embolism Present on Admission: No
[2019-07-18] MEDS: SENNOSIDES/DOCUSATE SODIUM 1 TAB TABLET PO SCH (21:30)
[2019-07-19] MEDS: 0.9 % SODIUM CHLORIDE 10 ML SYRINGE IV SCH ×3 (04:06→20:13)
[2019-07-19 07:20] LABS: Hematocrit 24.6 % (34.1-44.9); Hemoglobin 8.1 g/dL (11.2-15.7); Mean Cell Volume 97.6 fL (80.0-100.0); Mean Corpuscular HGB Conc 32.9 g/dL (31.0-36.0); Mean Platelet Volume 9.9 fL (7.4-10.4); Platelet Count 167 K/mcL (140-440); RBC 2.52 M/mcL (3.59-5.38); WBC 7.5 K/mcL (4.50-11.00)
[2019-07-19 07:38] LABS: ALT/SGPT 24 U/l (0-40); AST/SGOT 41 U/l (0-37); Albumin 2.2 gm/dL (3.2-5.2); Albumin/Globulin Ratio 0.8 (1.0-2.3); Alkaline Phosphatase 43 U/L (39-117); Bilirubin,Direct < 0.2 mg/dL (0.0-0.3); Blood Urea Nitrogen 17 mg/dl (8-23); Calcium 7.8 mg/dl (8.6-10.4); Carbon Dioxide 21 mmol/L (22-30); Chloride 100 mmol/L (96-108); Globulin 2.8 gm/dL (2.2-3.7); Glomerular Filtration Rate 81; Glucose 112 mg/dL (70-105); Lactate Dehydrogenase 410 U/L (94-250); Phosphorous 2.3 mg/dL (2.7-4.5); Triglycerides 90 mg/dl (<150); Uric Acid 4.1 mg/dL (2.5-8.0)
[2019-07-19] MEDS: INSULIN LISPRO 1 UNIT/0.01 ML UNIT SQ SCH ×4 (08:15→20:06)
[2019-07-19 08:38] LABS: Eosinophils % (Manual) 5 % (0-7); Lymphocytes % 13 % (15-49); Monocytes % (Manual) 10 % (1-12); Platelet Estimate NORMAL (NORMAL); RBC Morphology NORMAL (NORMAL); Segmented Neutrophils % 72 % (38-78)
--- NOTE | 2019-07-19 08:40 | Internal Med Progress Note ---
Medical - PN: Subj Patient information: Note initiated : 07/19/19 at 8:39 am Service Date, if different from initiated Date: [] Patient: Nayely Zhao a 89 y/o F admitted on 07/14/19 for Fall. Chief Complaint: [] Interval history: Ms. Zhao is a 89 year old F with advanced dementia residing with her daughter and presents to the emergency room following unwitnessed fall and was evaluated by EMS with bilateral knee pain/left leg deformity and generalized pain. Following presentation to [facility] ER she underwent extensive work-up including whole-body imaging. Imaging revealed left femur fracture. Dr. Ky nuno orthopedic was consulted and recommended operative intervention. Orthopedics recommended to use a blood transfusion prior to surgery in light of hemoglobin 8.9. Patient was also found to be hypothermic at 94 and underwent active rewarming Subsequently hospitalist service was requested for admission. The time evaluation patient is alert. She was able to answer some of the questions. She could not recall the events prior to the fall or recollect episodes of dizziness lightheadedness. She denies fever or chest pain. She endorses pain during movement of left extremity. 07/14-hemoglobin down to 8 following transfusion. White count down to 10.3, additional 1 unit transfusion today. You for surgery today. No modifiable risk factor. Case discussed with Dr. Soares orthopedics. Will review postoperatively. Patient remains high risk operative morbidity and mortality in light of advanced age and underlying diabetes/dementia and deconditioning with poor functional status. 07/15. Patient seen postop day 1. Doing well. No significant pain at the operative site. Alert and respond to commands. Hemoglobin 7.1 initial 1 unit PRBC transfusion. Sodium 131. 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 No other concerns per nursing staff. 07/16-patient doing well. No overnight events. Sodium at 127. Hemoglobin 7.9 status post transfusion. Ongoing PT OT/nutrition support. No family at bedside. On free water restriction/start salt tabs for treatment of SIADH. 07/17-patient doing well. Improving postoperative pain. Alert. Sodium improved to 132. Hemoglobin 8.1. No overnight fever chills. No other concerns per staff. Potassium 4.2. Renal function stable. 07/18-patient doing well. Sodium stable. Hemodynamic stable. Ongoing PT OT. Ongoing postoperative care per orthopedics. No fever chills. No concerns per staff. - Constitutional Vitals: Vital Signs Temp Pulse Resp BP Pulse Ox 98.8 F 74 18 133/59 98 07/19/19 06:46 07/19/19 06:46 07/19/19 06:46 07/19/19 06:46 07/19/19 06:46 Period Temp Pulse Resp BP Sys/Benedict Pulse Ox Last 24 Hr 98.1 F-99.0 F 66-98 16-18 112-136/55-64 97-100 Intake and Output 07/18/19 07/19/19 07/19/19 21:59 05:59 13:59 Intake Total 240 240 Output Total 200 750 Balance 40 -510 Weight 176 lb Intake & Output: Intake & Output 07/18/19 07/19/19 07/19/19 21:59 05:59 13:59 Intake Total 240 240 Output Total 200 750 Balance 40 -510 Weight 176 lb Intake: Oral 240 240 Output: Urine Catheter Amount 200 750 Other: Urine Appearance Cloudy Clear Uretheral (Cardona) Cloudy Urine Color Dark Yellow Bright Yellow Uretheral (Cardona) Dark Yellow Urine Odor Strong General appearance: no acute distress Exam: Alert oriented nonlabored breathing Nondistended abdomen No anxiety Medical - PN: Obj Da - Labs CBC & Chem 7: 07/19/19 05:15 07/19/19 05:15 Labs: Abnormal Lab Results 07/19/19 07/19/19 07/18/19 05:15 05:15 05:05 WBC RBC 2.52 L Hgb 8.1 L Hct 24.6 L RDW Plt Count MPV Seg Neutrophils % Lymphocytes % 13 L RBC Morphology Polychromasia Sodium 130 L Carbon Dioxide 21 L BUN 24 H Glucose 112 H Calcium 7.8 L 7.7 L Phosphorus 2.3 L 2.2 L AST 41 H 38 H Lactate Dehydrogenase 410 H 261 H Total Protein 5.0 L 5.2 L Albumin 2.2 L 2.4 L Albumin/Globulin Ratio 0.8 L 0.9 L 07/18/19 07/17/19 07/17/19 05:05 05:05 05:05 WBC 11.8 H RBC 2.61 L 2.50 L Hgb 8.3 L 7.9 L Hct 25.2 L 23.7 L RDW 14.6 H Plt Count 139 L 119 L MPV 10.5 H Seg Neutrophils % 80 H Lymphocytes % 10 L 8 L RBC Morphology Abnorm A Polychromasia Few A Sodium 127 L Carbon Dioxide 21 L BUN 26 H Glucose 109 H Calcium 7.6 L Phosphorus 2.1 L AST Lactate Dehydrogenase Total Protein 5.1 L Albumin 2.4 L Albumin/Globulin Ratio 0.9 L Meds: Medications Acetaminophen (Tylenol) 650 mg PO Q4-6HP PRN; Protocol PRN Reason: Per Pain Protocol/Fever > 101 Hydrocodone Bitart/Acetaminophen ([place] 10/325mg) 1 tab PO Q6HP PRN; Protocol PRN Reason: Pain Last Admin: 07/18/19 23:51 Dose: 1 tab Documented by: Bisacodyl (Dulcolax) 10 mg [place] Q2-3DAYS PRN PRN Reason: Constipation Dextrose (Dextrose 50%) 0 ml IV UD PRN PRN Reason: Hypoglycemia Diagnostic Test (Pha) (Accu-Chek) 1 each FS [facility] Last Admin: 07/19/19 08:11 Dose: 1 each Documented by: Docusate Sodium (Colace) 100 mg PO BID [facility] Last Admin: 07/18/19 21:30 Dose: 100 mg Documented by: Furosemide (Lasix) 20 mg PO DAILYP PRN PRN Reason: Edema Glucose (Insta-Glucose) 15 gm PO PRN PRN PRN Reason: Hypoglycemia Heparin Sodium (Porcine) (Heparin) 5,000 unit SQ Q12 [facility] Last Admin: 07/18/19 21:29 Dose: 5,000 unit Documented by: Hydromorphone HCl (Dilaudid) 0 mg IV Q4HP PRN; Protocol PRN Reason: Per Pain Protocol Magnesium Sulfate (Magnesium Sulfate) 2 gm in 50 mls @ 50 mls/hr IV UD PRN PRN Reason: MG = or < 1.7 Acetaminophen (Ofirmev) 650 mg in 65 mls @ 130 mls/hr IV Q6HP PRN; Protocol PRN Reason: Per Pain Protocol/Fever > 101 Last Infusion: 07/17/19 03:58 Dose: Infused Documented by: Insulin Human Lispro (Humalog) 0 unit SQ ACHS [facility]; Protocol Last Admin: 07/19/19 08:15 Dose: Not Given Documented by: Iron Carb/Multivit/[place]/Folic Acid (Multivitamin W/Minerals) 1 tab PO DAILY [facility] Last Admin: 07/18/19 08:51 Dose: 1 tab Documented by: Melatonin (Melatonin 3mg Tablet) 3 mg PO HSP PRN PRN Reason: Insomnia Mupirocin (Bactroban Oint 2%) 1 dose NARES BID [facility] Last Admin: 07/18/19 21:30 Dose: 1 dose Documented by: Ondansetron HCl (Zofran Odt) 4 mg SL Q4-6HP PRN; Protocol PRN Reason: Nausea And Vomiting Ondansetron HCl (Zofran) 4 mg IV Q4-6HP PRN; Protocol PRN Reason: Nausea And Vomiting Polyethylene Glycol (Miralax) 17 gm PO DAILYP PRN PRN Reason: Constipation Last Admin: 07/18/19 16:01 Dose: 17 gm Documented by: Potassium Chloride (Klor-Con) 40 meq PO DAILYP PRN PRN Reason: K+ < 3.5 Senna/Docusate Sodium (Senna Plus Tablet) 1 tab PO HS [facility] Last Admin: 07/18/19 21:30 Dose: 1 tab Documented by: Sodium Chloride (Saline Flush) 10 ml IV Q8 [facility] Last Admin: 07/19/19 04:06 Dose: 10 ml Documented by: Sodium Chloride (Sodium Chloride) 2 gm PO TID [facility] Last Admin: 07/18/19 21:29 Dose: 2 gm Documented by: Thiamine HCl (Vitamin B1) 100 mg PO DAILY [facility] Last Admin: 07/18/19 08:51 Dose: 100 mg Documented by: Verapamil HCl (Calan Sr) 120 mg PO DAILY [facility] Last Admin: 07/18/19 08:50 Dose: 120 mg Documented by: Medical - PN: A/P - Time Spent With Patient Total time spent is greater than 50% in coordination of care (as documented) at patient's floor/unit and/or counseling patient: (1) Femur fracture, left Status: Acute Assessment and plan: * Left femur fracture-postop day 3. Continue postop care/management per orthopedics, PT OT * Blood loss anemia requiring transfusion. Status post 2 units PRBC. 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 Urine osmolarity 544. Sodium improving. Continue free water restriction/sodium chloride * Hypothermia resolved after active rewarming. Electrolytes within normal saucedo its * Atrial fibrillation-rate controlled on verapamil, Aspirin for CVA prophylaxis * Dementia- stable , continue home medications * Hypertension continue home dose lisinopril * Type 2 diabetes mellitus-basal prandial insulin * DVT prophylaxis heparin * Full code Plan * Continue telemetry PT OT * Continue dementia care/fall watch * Continue salt tabs/diuresis/fever restriction * Continue pre-existing medical condition management on home medications * Discharge planning per case management Current Visit: Yes Medical - PN: Qual - VTE Deep Vein Thrombosis/Pulmonary Embolism Present on Admission: No
[2019-07-19] MEDS: HYDROcodone/APAP 10/325MG TABLET PO PRN ×3 (09:00→21:21)
[2019-07-19] MEDS: THIAMINE 100 MG TABLET PO SCH (09:01)
[2019-07-19] MEDS: VERAPAMIL 120 MG TAB.XL.24H PO SCH (09:01)
[2019-07-19] MEDS: DOCUSATE SODIUM 100 MG CAPSULE PO SCH ×2 (09:01→20:11)
[2019-07-19] MEDS: SODIUM CHLORIDE 1 GM TABLET PO SCH ×3 (09:01→20:11)
[2019-07-19] MEDS: MULTIVIT,THER IRON,CA,FA & MIN 1 TABLET PO SCH (09:01)
[2019-07-19] MEDS: MUPIROCIN OINT 2% 22GM NARES SCH ×2 (09:02→20:09)
[2019-07-19] MEDS: HEPARIN 5,000 UNIT/ML VIAL SQ SCH ×2 (09:03→20:07)
[2019-07-19] MEDS ORDERED: FLEETS ADULT ENEMA PR PRN (16:12)
[2019-07-19] MEDS ORDERED: FLEETS ADULT ENEMA PR ONE (16:22)
[2019-07-19] MEDS: POLYETHYLENE GLYCOL 3350 17 GM PACKET PO PRN (19:53)
[2019-07-19] MEDS: SENNOSIDES/DOCUSATE SODIUM 1 TAB TABLET PO SCH (20:10)
[2019-07-20] MEDS: HYDROcodone/APAP 10/325MG TABLET PO PRN ×2 (04:06→11:40)
[2019-07-20] MEDS: 0.9 % SODIUM CHLORIDE 10 ML SYRINGE IV SCH (06:01)
[2019-07-20] MEDS: INSULIN LISPRO 1 UNIT/0.01 ML UNIT SQ SCH ×2 (07:42→11:38)
[2019-07-20] MEDS: THIAMINE 100 MG TABLET PO SCH (09:37)
[2019-07-20] MEDS: MULTIVIT,THER IRON,CA,FA & MIN 1 TABLET PO SCH (09:37)
[2019-07-20] MEDS: SODIUM CHLORIDE 1 GM TABLET PO SCH (09:38)
[2019-07-20] MEDS: VERAPAMIL 120 MG TAB.XL.24H PO SCH (09:38)
[2019-07-20] MEDS: DOCUSATE SODIUM 100 MG CAPSULE PO SCH (09:38)
[2019-07-20] MEDS: HEPARIN 5,000 UNIT/ML VIAL SQ SCH (09:39)
--- NOTE | 2019-07-20 10:05 | Discharge Summary ---
Medical - DS: Prov Patient information: Note initiated : 07/20/19 at 10:03 am Service Date, if different from initiated Date: [] Patient: Nayely Zhao 89 y/o F admitted on 07/14/19 for Fall. Chief Complaint: [] Date of admission: 07/14/19 17:40 Discharge date: 07/20/19 Primary care physician: Leonor Bond Consults: 07/14/19 15:22 Consult to Physician [CONS] Stat Comment: Consulting Provider: Axel Flores Reason For Exam: Physician to Consult Medical - DS: Meds - Discharge Medications Prescriptions: Aspirin [Ecotrin] 81 mg PO BID #60 tablet. Hydrocodone/APAP 7.5/325Mg [[place] 7.5-325Mg] 1 - 2 tab PO Q4HP PRN #50 tab PRN Reason: Pain Prescription Printed Active and Home Medications: Home Medications verapamil 120 mg 24 hr capsule,extended release 120 mg PO DAILY #30 [email or web address].pel 01/16/18 [Rx Confirmed 07/14/19 Last Taken 06/02/18] furosemide 20 mg tablet 20 mg PO QDAY PRN #30 tab 03/14/18 [Rx Confirmed 07/14/19 Last Taken 06/02/18] hydrocodone 10 mg-acetaminophen 325 mg tablet 1 tab PO Q6H PRN #120 tab 04/09/18 [Rx Confirmed 07/14/19 Last Taken 06/03/18] Aspirin [Ecotrin] 81 mg PO BID #60 tablet. 07/17/19 [Rx Last Taken Unknown] Hydrocodone/APAP 7.5/325Mg [[place] 7.5-325Mg] 1 - 2 tab PO Q4HP PRN #50 tab 07/17/19 [Rx Last Taken Unknown] Medical - DS: Hosp Hospital Course: Discharge diagnosis * Left femur fracture-postop day 4. Clinically improving. Ongoing PT OT. Pain was controlled. Continue follow-up with orthopedics as outpatient. PT OT to continue with SNF * Blood loss anemia requiring transfusion. 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 Urine osmolarity 544. Sodium improving. * Hypothermia resolved after active rewarming. Electrolytes within normal limits * Atrial fibrillation-rate controlled on verapamil, Aspirin for CVA prophylaxis * Dementia- stable , continue home medications * Hypertension continue home dose lisinopril * Type 2 diabetes mellitus-basal prandial insulin Brief hospital course Ms. Zhao is a 89 year old F with advanced dementia residing with her daughter and presents to the emergency room following unwitnessed fall and was evaluated by EMS with bilateral knee pain/left leg deformity and generalized pain. Following presentation to [facility] ER she underwent extensive work-up including whole-body imaging. Imaging revealed left femur fracture. Dr. Soares orthopedic was consulted and recommended operative intervention. Orthopedics recommended to use a blood transfusion prior to surgery in light of hemoglobin 8.9. Patient was also found to be hypothermic at 94 and underwent active rewarming Subsequently hospitalist service was requested for admission. The time evaluation patient is alert. She was able to answer some of the questions. She could not recall the events prior to the fall or recollect episodes of dizziness lightheadedness. She denies fever or chest pain. She endorses pain during movement of left extremity. 07/14-hemoglobin down to 8 following transfusion. White count down to 10.3, additional 1 unit transfusion today. You for surgery today. No modifiable risk factor. Case discussed with Dr. Soares orthopedics. Will review postoperatively. Patient remains high risk operative morbidity and mortality in light of advanced age and underlying diabetes/dementia and deconditioning with poor functional status. 07/15. Patient seen postop day 1. Doing well. No significant pain at the operative site. Alert and respond to commands. Hemoglobin 7.1 initial 1 unit PRBC transfusion. Sodium 131. 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 No other concerns per nursing staff. 07/16-patient doing well. No overnight events. Sodium at 127. Hemoglobin 7.9 status post transfusion. Ongoing PT OT/nutrition support. No family at bedside. On free water restriction/start salt tabs for treatment of SIADH. 07/17-patient doing well. Improving postoperative pain. Alert. Sodium improved to 132. Hemoglobin 8.1. No overnight fever chills. No other concerns per staff. Potassium 4.2. Renal function stable. 07/18-patient doing well. Sodium stable. Hemodynamic stable. Ongoing PT OT. Ongoing postoperative care per orthopedics. No fever chills. No concerns per staff. 07/19-patient doing well. No overnight events. No concerns per staff. Sodium 130. Ongoing PT OT. Postoperative site pain minimal. Transfer to SNF for continued postoperative rehab. Hemoglobin stable 8.1 discharge instructions below Discharge diagnosis: . - Time Spent with Patient Total time spent providing and/or coordinating discharge services: Medical - DS: Exam - Constitutional Vitals: Vital Signs Temp Pulse Resp BP Pulse Ox 07/20/19 08:00 98.0 F 86 18 126/60 98 07/20/19 04:10 98.0 F 89 16 109/63 94 07/19/19 23:23 98.4 F 81 16 112/59 100 07/19/19 20:00 98.6 F 78 18 125/63 97 07/19/19 16:57 98.3 F 75 18 116/59 98 07/19/19 11:59 99.2 F H 81 18 125/62 97 Intake and Output 07/19/19 07/20/19 07/20/19 21:59 05:59 13:59 Intake Total 480 200 Output Total 300 800 Balance 180 -600 Intake: Oral 480 200 Output: Urine Catheter Amount 300 800 Other: Meal juice Percent of Meal Consumed 100% Feeding Ability Independent Urine Appearance Clear Clear Uretheral (Cardona) Clear Urine Color Light Lola Light Lola Uretheral (Cardona) Bright Yellow Weight 176 lb Medical - DS: A/P - Patient/Caregiver Discharge Instructions Activity: as per physical therapy, increase activity as tolerated Diet: Regular Diet Additional Instructions: Non-weight bearing to left leg. Leave immobilizer in place at all times except for bed bath/dressing change. Follow-up PCP in 5 days F/u orthopedics as scheduled by orthopedics along with post op care. Post op DVT prophylaxis per orthopedics I recommend SNF physician to check CBC BMP UA as a posthospital follow-up in 1 week. Continue aggressive bowel regimen to prevent constipation Continue fall precautions Continue aggressive PT OT evaluation and treatment at [facility]. ST eval and treatment if indicated High protein calorie supplements All meals on chair sitting upright at 90 degrees to prevent aspiration Return to ER if worsening fever chills shortness of breath, diarrhea, bleeding Continue diet and activity as advised Discussed importance of medication adherence Please review medication list with patient prior to discharge Please schedule follow-up with PCP/Providers prior to discharge and provide printouts Prescriptions: Aspirin [Ecotrin] 81 mg PO BID #60 tablet. Hydrocodone/APAP 7.5/325Mg [[place] 7.5-325Mg] 1 - 2 tab PO Q4HP PRN #50 tab PRN Reason: Pain Prescription Printed - Problem Maintenance (1) Femur fracture, left Status: Acute - Follow up Plan Follow up with: Leonor Bond, KIMBERLY, [employer] [Primary Care Provider] - Parrish Soares MD [Physician] - Disposition: Home, Self-Care Prognosis: Fair Rehab Potential: Fair I certify that the patient requires SNF services: Yes Overall status at discharge: patient is progressing back to baseline Medical - DS: Qual - VTE Deep Vein Thrombosis/Pulmonary Embolism Present on Admission: No
[2019-07-20] MEDS: MUPIROCIN OINT 2% 22GM NARES SCH (11:24)
--- NOTE | 2019-07-24 08:00 | Operative Note ---
DATE OF OPERATION: 07/15/2019 PREOPERATIVE DIAGNOSIS: Left supracondylar femur fracture. POSTOPERATIVE DIAGNOSIS: Left supracondylar femur fracture. OPERATION PROPOSED: Open reduction and internal fixation of supracondylar femur fracture on the left. OPERATION PERFORMED: Open reduction and internal fixation of supracondylar femur fracture on the left. OPERATING SURGEON: Eugenio Soares M.D. PANEL MACHINE OPERATOR: Luis Miguel Addison PA-C. This provider's expertise and technical skill were required throughout the case. The PA assisted with preoperative coordination, intraoperative retraction, wound closure, dressing and splint application, as well as postoperative documentation and care coordination. INDICATIONS: This is an elderly lady who has a significantly displaced distal femur fracture who has elected to proceed with an open reduction and internal fixation. Hardware used was a [place] lateral plate, precontoured. OPERATION IN DETAIL: Informed consent was obtained. The patient was taken to the operating room and provided with appropriate anesthetic and prophylactic antibiotics. She was carefully positioned. Her left lower extremity was prepped sterilely. A lateral incision was made. We dissected through the iliotibial band. The fracture hematoma was evacuated. We then applied a lateral plate. This was stabilized to the lateral aspect of the distal condyle with a guidewire. We then placed two Schanz pins in the proximal aspect of the plate after performing a reduction maneuver. These Schanz pins were applied through the plate and we then used a spinner that allowed reduction of the distal femur to the plate. This provided actually very appropriate reduction of this fracture. There was quite extensive comminution in the central segment. This plate was then filled with proximal and distal locking screws. Wounds were irrigated thoroughly. We closed with a 0 Vicryl in interrupted fashion, 2-0 Vicryl inverted deep dermal, and cecile. The procedure was tolerated well. No complications. Estimated blood loss 100 mL. GDD:melva Job ID: [id number] Doc ID: [id number] Parrish Soares MD
== END 2019-07-20 13:14 | disposition home or self-care (01) | DRG 481 ==
LOC: ED 12:12 → ICU 17:40 → MEDSUR 07-16 12:25
PROVIDERS: ADMIT Internal Medicine; ATTEND Internal Medicine